=== PATIENT | female | born 1945 | race Caucasian/White ===

== ENCOUNTER 2017-01-05 23:25 | Inpatient (IN) | payer MEDICARE ==
--- NOTE | 2017-01-06 00:15 | ED Physician Chart ---
Chief Complaint/HPI - Patient Information Date Seen:: 01/06/17 Time Seen:: 23:40 Chief Complaint:: CELLULITIS OF BOTH LEGS AND FEET History of Present Illness:: THIS IS A 71 YO FEMALE WITH A LONG HISTORY HEART FAILURE WITH SEVERE SWELLING' REDNESS AND TENDERNESS OF BOTH LOWER EXTREMITIES. SHE ALSO HAS A HISTORY OF HEART DISEASE AND HYPERTENSION. SHE ALSO HAD BRAIN SURGERY FOR REPAIR OF A RUPTURED BLOOD VESSELS IN THE BRAIN. Allergies:: Allergies Allergy/AdvReac Type Severity Reaction Status Date / Time No Known Allergies Allergy Verified 01/06/17 00:00 Vitals:: Vital Signs - 8 hr 01/05/17 23:30 Temp 98.1 F HR 105 RR 20 BP 127/85 O2 Sat % 95 Historian:: Patient Review:: Nurse's Note Reviewed Review of Systems - Review of Systems General/Constitutional: No fever, No chills, No weight loss, Weakness, No diaphoresis, Edema, No loss of appetite Skin: Skin lesions, No rash, No bruising Head: No headache, No light-headedness Eyes: No loss of vision, No pain, No diplopia ENT: No earache, No nasal drainage, No sore throat, No tinnitus Neck: No neck pain, No swelling, No thyromegaly, No stiffness, No mass noted Cardio Vascular: No chest pain, No palpitations, No PND, No orthopnea, No edema Pulmonary: SOB, Cough, No sputum, No wheezing GI: No nausea, No vomiting, No diarrhea, No pain, No melena, No hematochezia, No constipation, No hematemesis G/U: No dysuria, No frequency, No hematuria Musculoskeletal: No bone or joint pain, No back pain, No muscle pain Endocrine: No polyuria, No polydipsia Psychiatric: No prior psych history, No depression, Anxiety, No suicidal ideation Hematopoietic: No bruising, No lymphadenopathy Allergic/Immuno: No urticaria, No angioedema Neurological: No syncope, No focal symptoms, No weakness, No paresthesia, No headache, No seizure, No dizziness, No confusion, No vertigo Past Medical History - Past Medical History Obtainable: Yes Past Medical History: HTN, CHF Family History: None Social History: Non Smoker, No Alcohol, No Drug Use Surgical History: other (RIGHT FOOT SURGERY AND BRAIN SURGERY) Psychiatricy History: Depression Medication: Reviewed Family Medical History - Family Member Mother History Unknown: Yes Ethnicity: Non- Living Status: Other Medical History: POOR LEG CIRCULATION Physical Exam - Physical Examination General/Constitutional: Awake, Well-developed, well-nourished, Alert, No distress, GCS 15, Non-toxic appearing, Ambulatory Head: Atraumatic Eyes: Lids, conjuctiva normal, PERRL, EOMI Skin: Nl inspection, No rash, No skin lesions, No ecchymosis, Well hydrated, No lymphadenopathy ENMT: External ears, nose nl, Nasal exam nl, Lips, teeth, gums nl Neck: Nontender, Full ROM w/o pain, No JVD, No nuchal rigidity, No bruit, No mass, No stridor Respiratory: Nl effort/Exclusion Other Respiratory comments:: THERE ARE BILATERAL RHONCHI AND RALES Cardio Vascular: RRR, No murmur, gallop, rubs, NL S1 S2 Other Cardio Vascular comments:: ABDNORMAL BEATS HEARD WITH DROPPED BEATS HERAD. GI: No tenderness/rebounding/guarding, No organomegaly, No hernia, Normal BS's, Nondistended, No mass/bruits, No McBurney tenderness : No CVA tenderness Extremities: Full ROM, normal strength in all extremities, Normal digits & nails Other Extremities comments:: THERE IS BILATERAL SEVERE EDEMA 4+ AND REDNESS WITH TENDERNESS FROM THE TIBIAL TUBEROSITY DOWN TO BOTH FEET. Neuro/Psych: Alert/oriented, DTR's symmetric, Normal sensory exam, Normal motor strength, Judgement/insight normal, Mood normal, No focal deficits Other Neuro/Psych comments:: THIS PATIENT HAS AN ABNORMAL GAIT Misc: normal gait, Normal back, No paraspinal tenderness Labs/Radiology/EKG Results - Lab Results Results: Abnormal Lab Results 01/06/17 01/06/17 01/06/17 00:22 00:22 00:33 WBC 15.2 H RBC 4.61 Hgb 12.9 Hct 39.0 MCV 84.6 MCH 28.1 MCHC Differential 33.2 RDW 13.8 Plt Count 473 H MPV 8.1 Neutrophils % 72.4 Lymphocytes % 19.1 L Monocytes % 5.2 Eosinophils % 2.9 Basophils % 0.4 Sodium 134 L Potassium 4.4 Chloride 103 Carbon Dioxide 23.9 Anion Gap 11.5 BUN 26 H Creatinine 1.2 Est GFR ( Amer) 57.1 Est GFR (Non-Af Amer) 47.2 BUN/Creatinine Ratio 21.7 Glucose 121 H Whole Bld Lactic Acid Calcium 10.0 Total Bilirubin 0.3 AST 15 ALT 13 Alkaline Phosphatase 90 Troponin I Total Protein 8.4 H Albumin 3.4 L Globulin 5.0 Albumin/Globulin Ratio 0.7 L Triglycerides 155 H Cholesterol 148 LDL Cholesterol Direct 116 HDL Cholesterol 27 01/06/17 01/06/17 00:33 00:33 WBC RBC Hgb Hct MCV MCH MCHC Differential RDW Plt Count MPV Neutrophils % Lymphocytes % Monocytes % Eosinophils % Basophils % Sodium Potassium Chloride Carbon Dioxide Anion Gap BUN Creatinine Est GFR ( Amer) Est GFR (Non-Af Amer) BUN/Creatinine Ratio Glucose Whole Bld Lactic Acid 1.48 Calcium Total Bilirubin AST ALT Alkaline Phosphatase Troponin I 0.01 Total Protein Albumin Globulin Albumin/Globulin Ratio Triglycerides Cholesterol LDL Cholesterol Direct HDL Cholesterol - Radiology Results Results: CHEST X-RAY = CARDIOMEGALY ct scan of the chest = large hiatal hernia, hilar lymphnodes, - EKG Interpretations EKG Time:: 00:03 Rate & Rhythm: RATE= 101, SINUS Taiban: RIGHT AXIS Comments:: THERE ARE MULTI FOCAL PVCS NOTED Assessment - Assessment General Assessment: CHF WITH CELLULITIS OF BOTH LEGS hiatal hernia ED Septic Shock - . Is Septic Shock (SBP<90, OR Lactate>4 mmol\L) present?: No - <6hrs of presentation: Vital Signs: Vital Signs - 8 hr 01/05/17 23:30 Temp 98.1 F HR 105 RR 20 BP 127/85 O2 Sat % 95 Reassessment (Disposition) - Reassessment Reassessment Condition:: Improved - Diagnosis Diagnosis:: SEVERE CELLULITIS OF BOTH LOWER EXTREMITIES - Patient Disposition Discharge/Transfer:: Acute Care w/in this hosp Admitting Medical Physician:: Rex Mcguire Condition at Disposition:: Unchanged ED Discharge Plan - Patient Disposition Admit/Discharge/Transfer: Acute Care w/in this hosp Condition at Disposition: Unchanged
[2017-01-06 00:54] LABS: % BASOPHILS 0.4 % (0.0-2.0); % EOSINOPHILS 2.9 % (0.0-5.0); % LYMPHOCYTES 19.1 % (20.0-50.0); % MONOCYTES 5.2 % (2.0-10.0); % NEUTROPHILS 72.4 % (40.0-80.0); HEMOGLOBIN 12.9 gm/dL (11.7-16.1); MEAN CELL VOLUME 84.6 fl (81-100); MEAN CORPUSCULAR HEMOGLOBIN 28.1 pg (27.0-31.0); MEAN CORPUSCULAR HGB CONC 33.2 pg (28.0-36.0); MEAN PLATELET VOLUME 8.1 fl; PLATELET COUNT 473 Th/cmm (150-400); RED BLOOD COUNT 4.61 Mil/cmm (3.80-5.20); RED CELL DISTRIBUTION WIDTH 13.8 % (11.5-20.0)
[2017-01-06 00:59] LABS: WHITE BLOOD COUNT 15.2 Th/cmm (4.8-10.8)
[2017-01-06 01:10] LABS: ALB/GLOB RATIO 0.7 (1.0-1.8); ANION GAP 11.5 (7.0-16.0); BILIRUBIN,TOTAL 0.3 mg/dL (0.3-1.0); BUN/CREATININE RATIO 21.7; CARBON DIOXIDE 23.9 mEq/L (21.0-31.0); CREATININE - SERUM 1.2 mg/dL (0.6-1.2); POTASSIUM SERUM 4.4 mEq/L (3.5-5.1)
[2017-01-06 01:11] LABS: CHOLESTEROL 148 mg/dL (<200); TRIGLYCERIDES 155 mg/dL (<150)
[2017-01-06] MEDS ORDERED: cefTRIAXone 1 GM in Sodium Chloride 0.9% 50 ML IV ONE (01:11)
[2017-01-06 01:26] LABS: INR 0.94 (0.5-1.4); PROTHROMBIN TIME (TEST) 9.8 SECONDS (9.5-11.5)
[2017-01-06 01:35] LABS: URINE BILIRUBIN SMALL (NEGATIVE); URINE BLOOD NEGATIVE (NEGATIVE); URINE GLUCOSE (UA) NEGATIVE (NEGATIVE); URINE KETONE NEGATIVE (NEGATIVE); URINE PH 5.5 (4.6 - 8.0); URINE PROTEIN 30 mg/dL (NEGATIVE)
[2017-01-06 01:38] LABS: URINE COLOR ORANGE
[2017-01-06 01:41] LABS: URINE BACTERIA FEW /hpf (NONE SEEN); URINE EPITHELIAL CELLS OCCASIONAL /lpf (FEW); URINE RBC 0-2 /hpf (0-5); URINE WBC 0-2 /hpf (0-5)
[2017-01-06] MEDS ORDERED: IOHEXOL 300MG/ML 100 ML VIAL ONE (02:03)
[2017-01-06] MEDS ORDERED: Morphine Sulfate 2 mg/mL 1mL Syr IVP PRN ×3 (02:07→03:11)
[2017-01-06 07:28] LABS: % BASOPHILS 0.1 % (0.0-2.0); % EOSINOPHILS 4.2 % (0.0-5.0); % LYMPHOCYTES 18.6 % (20.0-50.0); % MONOCYTES 6.5 % (2.0-10.0); % NEUTROPHILS 70.6 % (40.0-80.0); HEMATOCRIT 37.2 % (35.0-45.0); HEMOGLOBIN 12.2 gm/dL (11.7-16.1); MEAN CELL VOLUME 87.3 fl (81-100); MEAN CORPUSCULAR HEMOGLOBIN 28.6 pg (27.0-31.0); MEAN CORPUSCULAR HGB CONC 32.7 pg (28.0-36.0); MEAN PLATELET VOLUME 8.8 fl; NEUTROPHILE ABSOLUTE 9.8 Th/cmm (1.8-8.0); PLATELET COUNT 454 Th/cmm (150-400); RED BLOOD COUNT 4.25 Mil/cmm (3.80-5.20); RED CELL DISTRIBUTION WIDTH 13.7 % (11.5-20.0)
[2017-01-06 07:30] LABS: ALB/GLOB RATIO 0.7 (1.0-1.8); ALKALINE PHOSPHATASE 94 U/L (34-104); BILIRUBIN,TOTAL 0.3 mg/dL (0.3-1.0); BUN - UREA NITROGEN 24 mg/dL (7-25); CALCIUM SERUM 9.1 mg/dL (8.6-10.3); CARBON DIOXIDE 26.7 mEq/L (21.0-31.0); CHLORIDE 103 mEq/L (98-107); CHOLESTEROL 134 mg/dL (<200); GLUCOSE 103 mg/dL (70-105); POTASSIUM SERUM 3.7 mEq/L (3.5-5.1); SGOT 12 U/L (13-39); SGPT/ALT 12 U/L (7-52); SODIUM SERUM 137 mEq/L (136-145); TRIGLYCERIDES 127 mg/dL (<150)
[2017-01-06 08:08] LABS: WHITE BLOOD COUNT 13.9 Th/cmm (4.8-10.8)
--- NOTE | 2017-01-06 08:55 | Diagnostic Imaging Report ---
Exam: Portable examination chest HISTORY: Congestive heart failure Findings: A portable upright examination of chest at 0043 hours was reviewed no prior studies available for comparison. The study demonstrates a large right pericardial mass measuring 13.5 cm long with diameters with superimposed right pleural effusion. This might represent pneumonic consolidation neoplastic component or infiltration of right hemidiaphragm eventration. CT examination of chest is recommended. COMPARISON with studies of the lateral view of chest would be helpful. The left lung parenchyma is well aerated. Mediastinal structures midline the heart is not enlarged. Bony thorax intact. IMPRESSION: 1. 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 CT examination of chest recommended.
[2017-01-06] MEDS ORDERED: Vancomycin HCl 1.5 GM in Sodium Chloride 0.9% 500 ML IV SCH (10:00)
--- NOTE | 2017-01-06 12:14 | History and Physical ---
History of Present Illness - HPI Chief Complaint: bilateral leg cellulitis HPI: THIS IS A 71 YEAR OLD FEMALE WITH A 1 WEEK HISTORY OF BILATERAL LOWER EXTREMITY SWELLING AND REDNESS. Vital Signs: Last Vital Signs Temp 98.5 F 01/06/17 08:00 Pulse 91 01/06/17 08:00 Resp 19 01/06/17 08:00 BP 116/68 01/06/17 02:49 Pulse Ox 91 01/06/17 08:00 Past Medical History Cardiovascular: Report: CAD, CHF, HTN Pulmonary: Report: No Pertinent Hx TEACHING SUPERVISOR: Report: No Pertinent Hx GI: Report: No Pertinent Hx Psych: Report: No Pertinent Hx Musculoskeletal: Report: No Pertinent Hx Infectious Disease: Report: No Pertinent Hx Renal/: Report: No Pertinent Hx Endocrine: Report: No Pertinent Hx Dermatology: Report: No Pertinent Hx - Past Surgical History Past Surgical History: Other (BRAIN SURGERY) Family Medical History - Family Member Mother History Unknown: Yes Ethnicity: Non- Living Status: Other Medical History: POOR LEG CIRCULATION Social History Smoke: No Alcohol: None Drugs: None Lives: With Family - Allergies Allergies/Adverse Reactions: Allergies Allergy/AdvReac Type Severity Reaction Status Date / Time No Known Allergies Allergy Verified 01/06/17 00:00 Review of Systems - Review of Systems Constitutional: Denies: Fever, Chills Eyes: Denies: Vision Change ENT: Denies: Ear Pain, Ear Discharge, Nose Pain Respiratory: Denies: Cough, Dry, Shortness of Breath Cardiovascular: Denies: Chest Pain, Palpitations, Orthopnea Gastrointestinal: Denies: Nausea, Vomiting Musculoskeletal: Denies: Neck Pain Skin: Denies: Rash Neurological: Denies: Weakness, Numbness, Confusion Physical Exam - Physical Exam HEENT: Report: Ears Nose Throat within normal limits Neck: Report: Within normal limits Cardiovascular Systems: Report: +s1/s2 noted Respiratory: Report: Breath Sounds are within normal limits Abdomen: Report: Non-tender to palpation Back: Report: Inspection of back is within normal limits. Extremities: Report: Non-tender to palpation. Skin: Report: Color of skin is within normal limits Neuro/Psych: Report: Mood affect is within normal limits - Lab Results All Lab Results last 24 hours: Laboratory Last Values WBC 13.9 Th/cmm (4.8-10.8) H 01/06/17 06:15 RBC 4.25 Mil/cmm (3.80-5.20) 01/06/17 06:15 Hgb 12.2 gm/dL (11.7-16.1) 01/06/17 06:15 Hct 37.2 % (35.0-45.0) 01/06/17 06:15 MCV 87.3 fl (81-100) 01/06/17 06:15 MCH 28.6 pg (27.0-31.0) 01/06/17 06:15 MCHC Differential 32.7 pg (28.0-36.0) 01/06/17 06:15 RDW 13.7 % (11.5-20.0) 01/06/17 06:15 Plt Count 454 Th/cmm (150-400) H 01/06/17 06:15 MPV 8.8 fl 01/06/17 06:15 Neutrophils % 70.6 % (40.0-80.0) 01/06/17 06:15 Lymphocytes % 18.6 % (20.0-50.0) L 01/06/17 06:15 Monocytes % 6.5 % (2.0-10.0) 01/06/17 06:15 Eosinophils % 4.2 % (0.0-5.0) 01/06/17 06:15 Basophils % 0.1 % (0.0-2.0) 01/06/17 06:15 PT 9.8 SECONDS (9.5-11.5) 01/06/17 00:33 INR 0.94 (0.5-1.4) 01/06/17 00:33 PTT (Actin FS) 23.2 SECONDS (26.0-38.0) L 01/06/17 00:33 Sodium 137 mEq/L (136-145) 01/06/17 06:15 Potassium 3.7 mEq/L (3.5-5.1) 01/06/17 06:15 Chloride 103 mEq/L (98-107) 01/06/17 06:15 Carbon Dioxide 26.7 mEq/L (21.0-31.0) 01/06/17 06:15 Anion Gap 11.0 (7.0-16.0) 01/06/17 06:15 BUN 24 mg/dL (7-25) 01/06/17 06:15 Creatinine 1.0 mg/dL (0.6-1.2) 01/06/17 06:15 Est GFR ( Amer) > 60.0 ml/min (>90) 01/06/17 06:15 Est GFR (Non-Af Amer) 58.3 ml/min 01/06/17 06:15 BUN/Creatinine Ratio 24.0 01/06/17 06:15 Glucose 103 mg/dL (70-105) 01/06/17 06:15 Whole Bld Lactic Acid 1.48 mmol/L (0.60-1.99) 01/06/17 00:33 Calcium 9.1 mg/dL (8.6-10.3) 01/06/17 06:15 Total Bilirubin 0.3 mg/dL (0.3-1.0) 01/06/17 06:15 AST 12 U/L (13-39) L 01/06/17 06:15 ALT 12 U/L (7-52) 01/06/17 06:15 Alkaline Phosphatase 94 U/L (34-104) 01/06/17 06:15 Troponin I 0.01 ng/mL (0.01-0.05) 01/06/17 00:33 Total Protein 7.5 gm/dL (6.0-8.3) 01/06/17 06:15 Albumin 3.1 gm/dL (3.7-5.3) L 01/06/17 06:15 Globulin 4.4 gm/dL 01/06/17 06:15 Albumin/Globulin Ratio 0.7 (1.0-1.8) L 01/06/17 06:15 Triglycerides 127 mg/dL (<150) 01/06/17 06:15 Cholesterol 134 mg/dL (<200) 01/06/17 06:15 LDL Cholesterol Direct 102 mg/dL (75-193) 01/06/17 06:15 HDL Cholesterol 24 mg/dL (23-92) 01/06/17 06:15 TSH 2.90 uIU/ml (0.34-5.60) 01/06/17 00:33 Urine Source CLEAN C 01/06/17 01:28 Urine Color ORANGE 01/06/17 01:28 Urine Clarity SLIGHT CLOUDY (CLEAR) 01/06/17 01:28 Urine pH 5.5 (4.6 - 8.0) 01/06/17 01:28 Ur Specific [place] >= 1.030 (1.005-1.030) 01/06/17 01:28 Urine Protein 30 mg/dL (NEGATIVE) H 01/06/17 01:28 Urine Glucose (UA) NEGATIVE mg/dL (NEGATIVE) 01/06/17 01:28 Urine Ketones NEGATIVE mg/dL (NEGATIVE) 01/06/17 01:28 Urine Blood NEGATIVE (NEGATIVE) 01/06/17 01:28 Urine Nitrate NEGATIVE (NEGATIVE) 01/06/17 01:28 Urine Bilirubin SMALL (NEGATIVE) H 01/06/17 01:28 Urine Ictotest NEGATIVE (NEGATIVE) 01/06/17 01:28 Urine Urobilinogen 1.0 E.U./dL (0.2 - 1.0) 01/06/17 01:28 Ur Leukocyte Esterase NEGATIVE (NEGATIVE) 01/06/17 01:28 Urine RBC 0-2 /hpf (0-5) 01/06/17 01:28 Urine WBC 0-2 /hpf (0-5) 01/06/17 01:28 Ur Epithelial Cells OCCASIONAL /lpf (FEW) 01/06/17 01:28 Urine Bacteria FEW /hpf (NONE SEEN) 01/06/17 01:28 Hyaline Casts 2-5 /lpf (0-2) H 01/06/17 01:28 Laboratory Results - last 24 hr 01/06/17 01/06/17 06:15 06:15 WBC 13.9 H RBC 4.25 Hgb 12.2 Hct 37.2 MCV 87.3 MCH 28.6 MCHC Differential 32.7 RDW 13.7 Plt Count 454 H MPV 8.8 Neutrophils % 70.6 Lymphocytes % 18.6 L Monocytes % 6.5 Eosinophils % 4.2 Basophils % 0.1 Sodium 137 Potassium 3.7 Chloride 103 Carbon Dioxide 26.7 Anion Gap 11.0 BUN 24 Creatinine 1.0 Est GFR ( Amer) > 60.0 Est GFR (Non-Af Amer) 58.3 BUN/Creatinine Ratio 24.0 Glucose 103 Calcium 9.1 Total Bilirubin 0.3 AST 12 L ALT 12 Alkaline Phosphatase 94 Total Protein 7.5 Albumin 3.1 L Globulin 4.4 Albumin/Globulin Ratio 0.7 L Triglycerides 127 Cholesterol 134 LDL Cholesterol Direct 102 HDL Cholesterol 24 - Assessment Assessment: Cellulitis Bilateral Lower Extremities LEUCKOCYTOSIS ANEMIA ACUTE UTI HTN CHF MALNUTRITION - Plan Plan: EMPIRIC IV ANTIBIOTICS AM LABS VENOUS DOPPLER
--- NOTE | 2017-01-06 12:18 | Diagnostic Imaging Report ---
Exam: Portable summation of chest supine HISTORY: PICC line placement Findings: Portable supine examination of chest 1156 was reviewed no prior studies available comparison. The study demonstrates right-sided PICC line terminating superior vena cava. There is evidence of cardiomegaly superimposed congestive heart failure There is evidence of extensive consolidation in the right lung with superimposed right pleural effusion follow-up dictation recommended. The visualized bony thorax is intact. IMPRESSION: 1. Right-sided PICC line with the tip in superior vena cava 2. Cardiomegaly congestive heart failure 3. Extensive right basilar infiltrate superimposed effusion follow-up examination recommended
[2017-01-06] MEDS ORDERED: VTE Chemical Prophylaxis Screen/Admission MC PRN (12:26)
--- NOTE | 2017-01-06 15:46 | Diagnostic Imaging Report ---
Exam: CT exam of the chest HISTORY: Chest congestion Total DLP equals 287 CTDI equals 7.3 Findings: Multiple contiguous thin section of the chest were obtained from thoracic outlet to the upper abdomen with administration of intravenous contrast material. Reconstructions were made. Comparison: Chest x-ray 01/06/2017 Findings: A few nonspecific borderline prominent mediastinal lymph nodes are noted. Heart size is normal. No pericardial effusion. Moderate atherosclerotic vascular noted. Calcified and soft plaque is seen. There is mild ectasia of the proximal abdominal aorta measuring up to 2.2 cm. There is a massive retrocardiac hiatal hernia primarily along the right retrocardiac region containing almost all of the stomach with malrotated stomach noted. Hypoventilatory atelectatic changes of the lung bases are seen with mild bibasilar airspace disease and right basal passive atelectatic changes. No Pleural effusions. The upper abdomen demonstrates a 4 mm left renal stone, partially visualized. There is fullness of the bilateral renal collecting systems. A 3 cm left adrenal mass is also noted. There is hyperplasia of the bilateral adrenal glands. Degenerative changes of the spine are noted. IMPRESSION: Massive retrocardiac hiatal hernia primarily on the right side containing almost all the stomach with malrotation of the stomach noted. This accounts for density seen on recent chest x-ray. Mild bibasilar airspace disease and right basal passive atelectasis/consolidative changes. 3 cm left adrenal mass. Hounsfield units are indeterminate. Short-term follow-up CT without IV contrast is recommended for further assessment. Bilateral adrenal hyperplasia is also noted. 3 mm left renal stone. There is also fullness of the bilateral renal collecting systems, partially visualized. Moderate atherosclerotic vascular disease with calcified and soft plaque formation and mild ectasia of the proximal abdominal aorta measures 2.2 cm.
--- NOTE | 2017-01-06 23:39 | Admit Criteria Form ---
Admit Criteria Forms - Admit Criteria Diagnosis: CELLULITIS Clinical Indications for Admission to Inpatient Care (Place 'X' for any and all applicable criteria): Admission is indicated for ANY ONE of the following(1)(2)(3)(4)(5): [ ]I. Limb-threatening infection [ ]II. High-risk comorbid condition as indicated by ANY ONE of the following: [ ]a) Uncontrolled diabetes (eg, HbA1c greater than 10% (0.1)) [ ]b) Cirrhosis [ ]c) Neutropenia [ ]d) Asplenia [ ]e) Immunosuppression [ ]f) Symptomatic heart failure [ ]III. Failure of outpatient therapy as indicated by ALL of the following: [ ]a) Progression or no improvement after adequate trial (minimum of 48 hours, with longer period for stable lower extremity infection) [ ]b) Adequate antibiotic regimen as indicated by use of ANY ONE of the following: [ ]i) First-generation cephalosporin (e.g., cephalexin) [ ]ii) Antistaphylococcal penicillin (e.g., dicloxacillin) [ ]iii) Penicillin-allergic patient regimen (clindamycin, extended-spectrum fluoroquinolone, or doxycycline) [ ]iv) Resistant organism (eg, methicillin-resistant Staphylococcus aureus) regimen (6) [ ]c) Outpatient intravenous therapy regimen is not appropriate due to ANY ONE of the following. (7)(8)(9)(10): [ ]i) It was tried and was not successful (eg, progression of infection). [ ]ii) It is not available or cannot be arranged in a clinically appropriate time frame (e.g., the next day). [ ]iii) Clinical presentation (eg, acuity of infection, rapidity of progression, confirmed or suspected bacteremia) is judged to require ALL of the following: [ ]1) Immediate initiation of intravenous therapy ( eg, cannot wait for next day) [ ]2) Intensity of patient monitoring and observation (eg, vital sign measurement, checks for infection progression) that cannot be provided at other than inpatient level of care [ ]IV. Mental status changes [ ]V. Bacteremia [ ]. Hemodynamic instability [ ]VII. Suspected necrotizing soft tissue infection (e.g., gas in tissue)(11)( 12) [ ]VIII. Orbital infection (13)(14) [ ]IX. Associated surgical procedure (e.g., abscess drainage, debridement) not amenable to outpatient, emergency department, or observation care [ ]X. Cutaneous gangrene [ ]XI. High fever (temperature greater than 39.5 degrees C (103.1 degrees F) (oral)) not responsive to outpatient, emergency department, or observation care therapy [X ]XIII. Inpatient admission required rather than observation care (Also use Cellulitis: Observation Care as appropriate) because of ANY ONE of the following : [ ]a) Periorbital or perineal infection that is severe or worsening [ ]b) Severe pain requiring acute inpatient management [ ]c) IV fluid to replace significant ongoing (e.g., for over 24 hours) losses (greater than 3L/m2 per day) [ ]d) Compartment syndrome monitoring (17) [ ]e) Strict or protective (eg, laminar flow) isolation [ ]f) Urgent debridement or skin grafting [ ]g) Bone or joint debridement [ ]h) Immediate inpatient surgery [X ]i) Other condition, treatment or monitoring requiring inpatient admission Extended stay beyond goal length of stay may be needed for (1)(18): [ ]a) Necrotizing soft tissue infection or fasciitis [ ]b) Gram-negative infection [ ]c) Methicillin-resistant Staphylococcal aureus (MRSA) infection [ ]d) Peripheral venous insufficiency with cellulitis [ ]e) Extensive edema [ ]f) Sepsis or continued Hemodynamic instability [ ]g) Continued high fever or mental status change [ ]h) Bacteremia [ ]i) Active serious comorbid conditions ( eg, heart failure, renal insufficiency) The original [facility] [employer] content created by [facility] [facility] [place] [employer] has been revised. The portions of the content which have been revised are identified through the use of italic text or in bold, and [facility] has neither reviewed nor approved the modified material. All other unmodified content is copyright [facility] Please see references footnoted in the original [facility] edition 2016 Admit Criteria Met?: Yes
[2017-01-07 06:32] LABS: % BASOPHILS 0.1 % (0.0-2.0); % EOSINOPHILS 5.6 % (0.0-5.0); % LYMPHOCYTES 17.6 % (20.0-50.0); % MONOCYTES 3.2 % (2.0-10.0); % NEUTROPHILS 73.5 % (40.0-80.0); HEMATOCRIT 37.7 % (35.0-45.0); HEMOGLOBIN 12.2 gm/dL (11.7-16.1); MEAN CELL VOLUME 86.4 fl (81-100); MEAN CORPUSCULAR HEMOGLOBIN 27.9 pg (27.0-31.0); MEAN CORPUSCULAR HGB CONC 32.3 pg (28.0-36.0); MEAN PLATELET VOLUME 8.3 fl; NEUTROPHILE ABSOLUTE 10.4 Th/cmm (1.8-8.0); PLATELET COUNT 457 Th/cmm (150-400); RED BLOOD COUNT 4.36 Mil/cmm (3.80-5.20); RED CELL DISTRIBUTION WIDTH 13.6 % (11.5-20.0)
[2017-01-07 06:39] LABS: WHITE BLOOD COUNT 14.2 Th/cmm (4.8-10.8)
[2017-01-07 07:14] LABS: ANION GAP 8.8 (7.0-16.0); BUN - UREA NITROGEN 24 mg/dL (7-25); BUN/CREATININE RATIO 21.8; CARBON DIOXIDE 27.2 mEq/L (21.0-31.0); CHLORIDE 105 mEq/L (98-107); CREATININE - SERUM 1.1 mg/dL (0.6-1.2); GLUCOSE 111 mg/dL (70-105); SODIUM SERUM 137 mEq/L (136-145)
--- NOTE | 2017-01-07 08:01 | Diagnostic Imaging Report ---
Bilateral lower extremity Doppler venous ultrasound exam HISTORY: Pain/swelling Sonographic sector images were obtained through the deep venous systems of both legs. Associated Doppler data was obtained. The exam demonstrates patency of the common femoral, superficial femoral, popliteal, and posterior tibial veins bilaterally. Specifically, no thrombus is seen. There are normal compressibility and augmentation responses. IMPRESSION: Negative exam for deep vein thrombophlebitis.
[2017-01-07] MEDS: Vancomycin HCl 1.5 GM in Sodium Chloride 0.9% 500 ML IV SCH (08:46)
--- NOTE | 2017-01-07 09:13 | General Progress Note ---
Subjective - Review of Systems Service Date: 01/07/17 Events since last encounter: chronic cellulitis lower extremities, duration? has huge hiatal hernia, seems to be asymptomatic suggest EGD in presence of malrotation of CT Objective - Results Result Diagrams: 01/07/17 06:10 01/07/17 06:10 Recent Labs: Laboratory Last Values WBC 14.2 Th/cmm (4.8-10.8) H 01/07/17 06:10 RBC 4.36 Mil/cmm (3.80-5.20) 01/07/17 06:10 Hgb 12.2 gm/dL (11.7-16.1) 01/07/17 06:10 Hct 37.7 % (35.0-45.0) 01/07/17 06:10 MCV 86.4 fl (81-100) 01/07/17 06:10 MCH 27.9 pg (27.0-31.0) 01/07/17 06:10 MCHC Differential 32.3 pg (28.0-36.0) 01/07/17 06:10 RDW 13.6 % (11.5-20.0) 01/07/17 06:10 Plt Count 457 Th/cmm (150-400) H 01/07/17 06:10 MPV 8.3 fl 01/07/17 06:10 Neutrophils % 73.5 % (40.0-80.0) 01/07/17 06:10 Lymphocytes % 17.6 % (20.0-50.0) L 01/07/17 06:10 Monocytes % 3.2 % (2.0-10.0) 01/07/17 06:10 Eosinophils % 5.6 % (0.0-5.0) H 01/07/17 06:10 Basophils % 0.1 % (0.0-2.0) 01/07/17 06:10 PT 9.8 SECONDS (9.5-11.5) 01/06/17 00:33 INR 0.94 (0.5-1.4) 01/06/17 00:33 PTT (Actin FS) 23.2 SECONDS (26.0-38.0) L 01/06/17 00:33 Sodium 137 mEq/L (136-145) 01/07/17 06:10 Potassium 4.0 mEq/L (3.5-5.1) 01/07/17 06:10 Chloride 105 mEq/L (98-107) 01/07/17 06:10 Carbon Dioxide 27.2 mEq/L (21.0-31.0) 01/07/17 06:10 Anion Gap 8.8 (7.0-16.0) 01/07/17 06:10 BUN 24 mg/dL (7-25) 01/07/17 06:10 Creatinine 1.1 mg/dL (0.6-1.2) 01/07/17 06:10 Est GFR ( Amer) > 60.0 ml/min (>90) 01/07/17 06:10 Est GFR (Non-Af Amer) 52.2 ml/min 01/07/17 06:10 BUN/Creatinine Ratio 21.8 01/07/17 06:10 Glucose 111 mg/dL (70-105) H 01/07/17 06:10 Whole Bld Lactic Acid 1.48 mmol/L (0.60-1.99) 01/06/17 00:33 Calcium 9.0 mg/dL (8.6-10.3) 01/07/17 06:10 Total Bilirubin 0.3 mg/dL (0.3-1.0) 01/06/17 06:15 AST 12 U/L (13-39) L 01/06/17 06:15 ALT 12 U/L (7-52) 01/06/17 06:15 Alkaline Phosphatase 94 U/L (34-104) 01/06/17 06:15 Troponin I 0.01 ng/mL (0.01-0.05) 01/06/17 00:33 Total Protein 7.5 gm/dL (6.0-8.3) 01/06/17 06:15 Albumin 3.1 gm/dL (3.7-5.3) L 01/06/17 06:15 Globulin 4.4 gm/dL 01/06/17 06:15 Albumin/Globulin Ratio 0.7 (1.0-1.8) L 01/06/17 06:15 Triglycerides 127 mg/dL (<150) 01/06/17 06:15 Cholesterol 134 mg/dL (<200) 01/06/17 06:15 LDL Cholesterol Direct 102 mg/dL (75-193) 01/06/17 06:15 HDL Cholesterol 24 mg/dL (23-92) 01/06/17 06:15 TSH 2.90 uIU/ml (0.34-5.60) 01/06/17 00:33 Urine Source CLEAN C 01/06/17 01:28 Urine Color ORANGE 01/06/17 01:28 Urine Clarity SLIGHT CLOUDY (CLEAR) 01/06/17 01:28 Urine pH 5.5 (4.6 - 8.0) 01/06/17 01:28 Ur Specific [place] >= 1.030 (1.005-1.030) 01/06/17 01:28 Urine Protein 30 mg/dL (NEGATIVE) H 01/06/17 01:28 Urine Glucose (UA) NEGATIVE mg/dL (NEGATIVE) 01/06/17 01:28 Urine Ketones NEGATIVE mg/dL (NEGATIVE) 01/06/17 01:28 Urine Blood NEGATIVE (NEGATIVE) 01/06/17 01:28 Urine Nitrate NEGATIVE (NEGATIVE) 01/06/17 01:28 Urine Bilirubin SMALL (NEGATIVE) H 01/06/17 01:28 Urine Ictotest NEGATIVE (NEGATIVE) 01/06/17 01:28 Urine Urobilinogen 1.0 E.U./dL (0.2 - 1.0) 01/06/17 01:28 Ur Leukocyte Esterase NEGATIVE (NEGATIVE) 01/06/17 01:28 Urine RBC 0-2 /hpf (0-5) 01/06/17 01:28 Urine WBC 0-2 /hpf (0-5) 01/06/17 01:28 Ur Epithelial Cells OCCASIONAL /lpf (FEW) 01/06/17 01:28 Urine Bacteria FEW /hpf (NONE SEEN) 01/06/17 01:28 Hyaline Casts 2-5 /lpf (0-2) H 01/06/17 01:28 Vancomycin Trough 13.0 ug/mL (10-20) 01/07/17 06:10 RPR NONREACTIVE (NONREACTIVE) 01/06/17 00:33 - Physical Exam Vitals and I&O: Vital Signs Temp 97.5 F 01/07/17 07:44 Pulse 88 01/07/17 07:44 Resp 18 01/07/17 07:44 BP 116/69 01/07/17 07:44 Pulse Ox 94 01/07/17 07:44 Intake & Output 01/06/17 01/07/17 01/07/17 18:59 06:59 18:59 Intake Total 740 50 150 Output Total 450 880 Balance 290 50 -730 Weight (lbs) 106.141 kg 108.409 kg 108.272 kg Intake: Intake, IV Amount 500 50 Piperacillin Sodium/ 50 Tazobact 3.375 gm In Sodium Chloride 0.9% 50 ml @ 100 mls/hr IV Q8HR [facility] Rx#:[id number] Vancomycin HCl 1.5 gm In 500 Sodium Chloride 0.9% 500 ml @ 250 mls/hr IV Q24H [facility] Rx#:[id number] Oral 240 150 Output: Urine 450 880 Active Medications: Current Medications Piperacillin Sod/Tazobactam (Sod 3.375 gm/ Sodium Chloride) 50 mls @ 100 mls/ hr IV Q8HR [facility] Stop: 03/07/17 04:59 Last Admin: 01/07/17 04:07 Dose: 100 mls/hr Vancomycin HCl 1.5 gm/ Sodium (Chloride) 500 mls @ 250 mls/hr IV Q24H [facility] Stop: 03/08/17 07:59 Last Admin: 01/07/17 08:46 Dose: 250 mls/hr Miscellaneous (Vancomycin Iv Per Pharmacy) 1 [facility] DAILY [facility] Stop: 03/07/17 08:59 Miscellaneous (Vte Chemical Prophylaxis Screen/ Admission) 1 [facility] PRN PRN PRN Reason: PROTOCOL Stop: 03/07/17 12:25 Morphine Sulfate (Morphine) 2 mg IVP Q3H PRN PRN Reason: Pain (Severe) Stop: 03/07/17 02:06 Morphine Sulfate (Morphine) 1 mg IVP Q3HR PRN PRN Reason: Pain (Moderate) Stop: 03/07/17 03:10 Ondansetron HCl (Zofran) 4 mg IV Q6H PRN PRN Reason: Nausea / Vomiting Stop: 03/07/17 03:10
--- NOTE | 2017-01-07 14:59 | General Progress Note ---
Subjective - Review of Systems Events since last encounter: bilateral lower ext swelling no fever Objective - Results Result Diagrams: 01/07/17 06:10 01/07/17 06:10 Recent Labs: Laboratory Last Values WBC 14.2 Th/cmm (4.8-10.8) H 01/07/17 06:10 RBC 4.36 Mil/cmm (3.80-5.20) 01/07/17 06:10 Hgb 12.2 gm/dL (11.7-16.1) 01/07/17 06:10 Hct 37.7 % (35.0-45.0) 01/07/17 06:10 MCV 86.4 fl (81-100) 01/07/17 06:10 MCH 27.9 pg (27.0-31.0) 01/07/17 06:10 MCHC Differential 32.3 pg (28.0-36.0) 01/07/17 06:10 RDW 13.6 % (11.5-20.0) 01/07/17 06:10 Plt Count 457 Th/cmm (150-400) H 01/07/17 06:10 MPV 8.3 fl 01/07/17 06:10 Neutrophils % 73.5 % (40.0-80.0) 01/07/17 06:10 Lymphocytes % 17.6 % (20.0-50.0) L 01/07/17 06:10 Monocytes % 3.2 % (2.0-10.0) 01/07/17 06:10 Eosinophils % 5.6 % (0.0-5.0) H 01/07/17 06:10 Basophils % 0.1 % (0.0-2.0) 01/07/17 06:10 PT 9.8 SECONDS (9.5-11.5) 01/06/17 00:33 INR 0.94 (0.5-1.4) 01/06/17 00:33 PTT (Actin FS) 23.2 SECONDS (26.0-38.0) L 01/06/17 00:33 Sodium 137 mEq/L (136-145) 01/07/17 06:10 Potassium 4.0 mEq/L (3.5-5.1) 01/07/17 06:10 Chloride 105 mEq/L (98-107) 01/07/17 06:10 Carbon Dioxide 27.2 mEq/L (21.0-31.0) 01/07/17 06:10 Anion Gap 8.8 (7.0-16.0) 01/07/17 06:10 BUN 24 mg/dL (7-25) 01/07/17 06:10 Creatinine 1.1 mg/dL (0.6-1.2) 01/07/17 06:10 Est GFR ( Amer) > 60.0 ml/min (>90) 01/07/17 06:10 Est GFR (Non-Af Amer) 52.2 ml/min 01/07/17 06:10 BUN/Creatinine Ratio 21.8 01/07/17 06:10 Glucose 111 mg/dL (70-105) H 01/07/17 06:10 Whole Bld Lactic Acid 1.48 mmol/L (0.60-1.99) 01/06/17 00:33 Calcium 9.0 mg/dL (8.6-10.3) 01/07/17 06:10 Total Bilirubin 0.3 mg/dL (0.3-1.0) 01/06/17 06:15 AST 12 U/L (13-39) L 01/06/17 06:15 ALT 12 U/L (7-52) 01/06/17 06:15 Alkaline Phosphatase 94 U/L (34-104) 01/06/17 06:15 Troponin I 0.01 ng/mL (0.01-0.05) 01/06/17 00:33 Total Protein 7.5 gm/dL (6.0-8.3) 01/06/17 06:15 Albumin 3.1 gm/dL (3.7-5.3) L 01/06/17 06:15 Globulin 4.4 gm/dL 01/06/17 06:15 Albumin/Globulin Ratio 0.7 (1.0-1.8) L 01/06/17 06:15 Triglycerides 127 mg/dL (<150) 01/06/17 06:15 Cholesterol 134 mg/dL (<200) 01/06/17 06:15 LDL Cholesterol Direct 102 mg/dL (75-193) 01/06/17 06:15 HDL Cholesterol 24 mg/dL (23-92) 01/06/17 06:15 TSH 2.90 uIU/ml (0.34-5.60) 01/06/17 00:33 Urine Source CLEAN C 01/06/17 01:28 Urine Color ORANGE 01/06/17 01:28 Urine Clarity SLIGHT CLOUDY (CLEAR) 01/06/17 01:28 Urine pH 5.5 (4.6 - 8.0) 01/06/17 01:28 Ur Specific [place] >= 1.030 (1.005-1.030) 01/06/17 01:28 Urine Protein 30 mg/dL (NEGATIVE) H 01/06/17 01:28 Urine Glucose (UA) NEGATIVE mg/dL (NEGATIVE) 01/06/17 01:28 Urine Ketones NEGATIVE mg/dL (NEGATIVE) 01/06/17 01:28 Urine Blood NEGATIVE (NEGATIVE) 01/06/17 01:28 Urine Nitrate NEGATIVE (NEGATIVE) 01/06/17 01:28 Urine Bilirubin SMALL (NEGATIVE) H 01/06/17 01:28 Urine Ictotest NEGATIVE (NEGATIVE) 01/06/17 01:28 Urine Urobilinogen 1.0 E.U./dL (0.2 - 1.0) 01/06/17 01:28 Ur Leukocyte Esterase NEGATIVE (NEGATIVE) 01/06/17 01:28 Urine RBC 0-2 /hpf (0-5) 01/06/17 01:28 Urine WBC 0-2 /hpf (0-5) 01/06/17 01:28 Ur Epithelial Cells OCCASIONAL /lpf (FEW) 01/06/17 01:28 Urine Bacteria FEW /hpf (NONE SEEN) 01/06/17 01:28 Hyaline Casts 2-5 /lpf (0-2) H 01/06/17 01:28 Vancomycin Trough 13.0 ug/mL (10-20) 01/07/17 06:10 RPR NONREACTIVE (NONREACTIVE) 01/06/17 00:33 - Physical Exam Vitals and I&O: Vital Signs Temp 97.0 F 01/07/17 11:46 Pulse 83 01/07/17 11:46 Resp 18 01/07/17 11:46 BP 116/59 01/07/17 11:46 Pulse Ox 97 01/07/17 11:46 Intake & Output 01/06/17 01/07/17 01/07/17 18:59 06:59 18:59 Intake Total 740 100 150 Output Total 450 880 Balance 290 100 -730 Weight (lbs) 106.141 kg 108.409 kg 108.272 kg Intake: Intake, IV Amount 500 100 Piperacillin Sodium/ 100 Tazobact 3.375 gm In Sodium Chloride 0.9% 50 ml @ 100 mls/hr IV Q8HR [facility] Rx#:[id number] Vancomycin HCl 1.5 gm In 500 Sodium Chloride 0.9% 500 ml @ 250 mls/hr IV Q24H [facility] Rx#:[id number] Oral 240 150 Output: Urine 450 880 Active Medications: Current Medications Piperacillin Sod/Tazobactam (Sod 3.375 gm/ Sodium Chloride) 50 mls @ 100 mls/ hr IV Q8HR [facility] Stop: 03/07/17 04:59 Last Admin: 01/07/17 12:31 Dose: 100 mls/hr Vancomycin HCl 1.5 gm/ Sodium (Chloride) 500 mls @ 250 mls/hr IV Q24H [facility] Stop: 03/08/17 07:59 Last Admin: 01/07/17 08:46 Dose: 250 mls/hr Miscellaneous (Vancomycin Iv Per Pharmacy) 1 [facility] DAILY [facility] Stop: 03/07/17 08:59 Miscellaneous (Vte Chemical Prophylaxis Screen/ Admission) 1 [facility] PRN PRN PRN Reason: PROTOCOL Stop: 03/07/17 12:25 Morphine Sulfate (Morphine) 2 mg IVP Q3H PRN PRN Reason: Pain (Severe) Stop: 03/07/17 02:06 Morphine Sulfate (Morphine) 1 mg IVP Q3HR PRN PRN Reason: Pain (Moderate) Stop: 03/07/17 03:10 Ondansetron HCl (Zofran) 4 mg IV Q6H PRN PRN Reason: Nausea / Vomiting Stop: 03/07/17 03:10 General: No acute distress HEENT: Atraumatic Cardiovascular: Regular rate Abdomen: Bowel sounds Assessment/Plan - Assessment Assessment: Cellulitis Bilateral Lower Extremities LEUCKOCYTOSIS ANEMIA ACUTE UTI HTN CHF MALNUTRITION - Plan Plan: EMPIRIC IV ANTIBIOTICS AM LABS VENOUS DOPPLER
--- NOTE | 2017-01-07 16:44 | General Progress Note ---
Subjective - Review of Systems Service Date: 01/07/17 Events since last encounter: discussed with Dr. Castro will do esophagram Objective - Results Result Diagrams: 01/07/17 06:10 01/07/17 06:10 Recent Labs: Laboratory Last Values WBC 14.2 Th/cmm (4.8-10.8) H 01/07/17 06:10 RBC 4.36 Mil/cmm (3.80-5.20) 01/07/17 06:10 Hgb 12.2 gm/dL (11.7-16.1) 01/07/17 06:10 Hct 37.7 % (35.0-45.0) 01/07/17 06:10 MCV 86.4 fl (81-100) 01/07/17 06:10 MCH 27.9 pg (27.0-31.0) 01/07/17 06:10 MCHC Differential 32.3 pg (28.0-36.0) 01/07/17 06:10 RDW 13.6 % (11.5-20.0) 01/07/17 06:10 Plt Count 457 Th/cmm (150-400) H 01/07/17 06:10 MPV 8.3 fl 01/07/17 06:10 Neutrophils % 73.5 % (40.0-80.0) 01/07/17 06:10 Lymphocytes % 17.6 % (20.0-50.0) L 01/07/17 06:10 Monocytes % 3.2 % (2.0-10.0) 01/07/17 06:10 Eosinophils % 5.6 % (0.0-5.0) H 01/07/17 06:10 Basophils % 0.1 % (0.0-2.0) 01/07/17 06:10 PT 9.8 SECONDS (9.5-11.5) 01/06/17 00:33 INR 0.94 (0.5-1.4) 01/06/17 00:33 PTT (Actin FS) 23.2 SECONDS (26.0-38.0) L 01/06/17 00:33 Sodium 137 mEq/L (136-145) 01/07/17 06:10 Potassium 4.0 mEq/L (3.5-5.1) 01/07/17 06:10 Chloride 105 mEq/L (98-107) 01/07/17 06:10 Carbon Dioxide 27.2 mEq/L (21.0-31.0) 01/07/17 06:10 Anion Gap 8.8 (7.0-16.0) 01/07/17 06:10 BUN 24 mg/dL (7-25) 01/07/17 06:10 Creatinine 1.1 mg/dL (0.6-1.2) 01/07/17 06:10 Est GFR ( Amer) > 60.0 ml/min (>90) 01/07/17 06:10 Est GFR (Non-Af Amer) 52.2 ml/min 01/07/17 06:10 BUN/Creatinine Ratio 21.8 01/07/17 06:10 Glucose 111 mg/dL (70-105) H 01/07/17 06:10 Whole Bld Lactic Acid 1.48 mmol/L (0.60-1.99) 01/06/17 00:33 Calcium 9.0 mg/dL (8.6-10.3) 01/07/17 06:10 Total Bilirubin 0.3 mg/dL (0.3-1.0) 01/06/17 06:15 AST 12 U/L (13-39) L 01/06/17 06:15 ALT 12 U/L (7-52) 01/06/17 06:15 Alkaline Phosphatase 94 U/L (34-104) 01/06/17 06:15 Troponin I 0.01 ng/mL (0.01-0.05) 01/06/17 00:33 Total Protein 7.5 gm/dL (6.0-8.3) 01/06/17 06:15 Albumin 3.1 gm/dL (3.7-5.3) L 01/06/17 06:15 Globulin 4.4 gm/dL 01/06/17 06:15 Albumin/Globulin Ratio 0.7 (1.0-1.8) L 01/06/17 06:15 Triglycerides 127 mg/dL (<150) 01/06/17 06:15 Cholesterol 134 mg/dL (<200) 01/06/17 06:15 LDL Cholesterol Direct 102 mg/dL (75-193) 01/06/17 06:15 HDL Cholesterol 24 mg/dL (23-92) 01/06/17 06:15 TSH 2.90 uIU/ml (0.34-5.60) 01/06/17 00:33 Urine Source CLEAN C 01/06/17 01:28 Urine Color ORANGE 01/06/17 01:28 Urine Clarity SLIGHT CLOUDY (CLEAR) 01/06/17 01:28 Urine pH 5.5 (4.6 - 8.0) 01/06/17 01:28 Ur Specific [place] >= 1.030 (1.005-1.030) 01/06/17 01:28 Urine Protein 30 mg/dL (NEGATIVE) H 01/06/17 01:28 Urine Glucose (UA) NEGATIVE mg/dL (NEGATIVE) 01/06/17 01:28 Urine Ketones NEGATIVE mg/dL (NEGATIVE) 01/06/17 01:28 Urine Blood NEGATIVE (NEGATIVE) 01/06/17 01:28 Urine Nitrate NEGATIVE (NEGATIVE) 01/06/17 01:28 Urine Bilirubin SMALL (NEGATIVE) H 01/06/17 01:28 Urine Ictotest NEGATIVE (NEGATIVE) 01/06/17 01:28 Urine Urobilinogen 1.0 E.U./dL (0.2 - 1.0) 01/06/17 01:28 Ur Leukocyte Esterase NEGATIVE (NEGATIVE) 01/06/17 01:28 Urine RBC 0-2 /hpf (0-5) 01/06/17 01:28 Urine WBC 0-2 /hpf (0-5) 01/06/17 01:28 Ur Epithelial Cells OCCASIONAL /lpf (FEW) 01/06/17 01:28 Urine Bacteria FEW /hpf (NONE SEEN) 01/06/17 01:28 Hyaline Casts 2-5 /lpf (0-2) H 01/06/17 01:28 Vancomycin Trough 13.0 ug/mL (10-20) 01/07/17 06:10 RPR NONREACTIVE (NONREACTIVE) 01/06/17 00:33 - Physical Exam Vitals and I&O: Vital Signs Temp 97.2 F 01/07/17 15:41 Pulse 76 01/07/17 15:41 Resp 17 01/07/17 15:41 BP 110/73 01/07/17 15:41 Pulse Ox 95 01/07/17 15:41 Intake & Output 01/06/17 01/07/1717 18:59 06:59 18:59 Intake Total 740 100 150 Output Total 450 880 Balance 290 100 -730 Weight (lbs) 106.141 kg 108.409 kg 108.272 kg Intake: Intake, IV Amount 500 100 Piperacillin Sodium/ 100 Tazobact 3.375 gm In Sodium Chloride 0.9% 50 ml @ 100 mls/hr IV Q8HR [facility] Rx#:[id number] Vancomycin HCl 1.5 gm In 500 Sodium Chloride 0.9% 500 ml @ 250 mls/hr IV Q24H [facility] Rx#:[id number] Oral 240 150 Output: Urine 450 880 Active Medications: Current Medications Piperacillin Sod/Tazobactam (Sod 3.375 gm/ Sodium Chloride) 50 mls @ 100 mls/ hr IV Q8HR [facility] Stop: 03/07/17 04:59 Last Admin: 01/07/17 12:31 Dose: 100 mls/hr Vancomycin HCl 1.5 gm/ Sodium (Chloride) 500 mls @ 250 mls/hr IV Q24H [facility] Stop: 03/08/17 07:59 Last Admin: 01/07/17 08:46 Dose: 250 mls/hr Miscellaneous (Vancomycin Iv Per Pharmacy) 1 [facility] DAILY [facility] Stop: 03/07/17 08:59 Miscellaneous (Vte Chemical Prophylaxis Screen/ Admission) 1 [facility] PRN PRN PRN Reason: PROTOCOL Stop: 03/07/17 12:25 Morphine Sulfate (Morphine) 2 mg IVP Q3H PRN PRN Reason: Pain (Severe) Stop: 03/07/17 02:06 Morphine Sulfate (Morphine) 1 mg IVP Q3HR PRN PRN Reason: Pain (Moderate) Stop: 03/07/17 03:10 Mupirocin (Bactroban Oint) 1 appl NS BID [facility] Stop: 01/12/17 09:01 Ondansetron HCl (Zofran) 4 mg IV Q6H PRN PRN Reason: Nausea / Vomiting Stop: 03/07/17 03:10 General: No acute distress HEENT: Atraumatic Cardiovascular: Regular rate Abdomen: Bowel sounds
--- NOTE | 2017-01-07 19:05 | Consultation ---
DATE OF CONSULTATION: 01/07/2017 REFERRING PHYSICIAN: Dr. Mcguire. REASON FOR CONSULTATION: Cellulitis of both legs. Thank you for referring this patient to me. HISTORY OF PRESENT ILLNESS: This is a 71-year-old female, who appears to be coherent, who claims that she developed cellulitis in both lower extremities and has been getting worse for the last 12 years. She at one time wore some stockings but could not wear them now. PAST MEDICAL HISTORY: Includes hypertension, heart disease, brain surgery for ruptured aneurysm. She claims that about 40 years ago, she was told she had a hiatal hernia, but no surgery was recommended at that time. She denies any dysphagia, no pain in the chest, no throwing up. LABORATORY STUDIES: Show the WBC at 15,200, platelet count was 473. Chemistry are within normal limits. Chest x-ray showed opacity in the right chest and a CT scan was done and this showed a massive retrocardiac hiatal hernia with malrotation. Ultrasound of the lower extremity did not show any DVT. PHYSICAL EXAMINATION: GENERAL: The patient is morbidly obese. CHEST: Unremarkable, except for decreased breath sounds on the right side. ABDOMEN: Globular and soft. There is no epigastric tenderness. EXTREMITIES: The lower extremities show marked swelling involving both legs below the knee with ulcerations, although superficial. No evidence of distal arterial deficit. RECOMMENDATIONS: 1. Local wound care for the cellulitis. 2. In view of the grossly abnormal CT of the chest, will be ordered. This was discussed with GI learning and development consultant. JOB# [id number]
--- NOTE | 2017-01-08 00:14 | Consultation ---
DATE OF CONSULTATION: CONSULTING PHYSICIAN: Dr. Mcguire. REASON FOR CONSULTATION: Hiatal hernia. HISTORY OF PRESENT ILLNESS: The patient is a 71-year-old female with past medical history significant for congestive heart failure, recurrent leg cellulitis, hiatal hernia, who presented to the Emergency Room yesterday with recurrence of her bilateral lower extremity cellulitis. The patient notes that her legs have been feeling more painful and has been appearing more erythematous as of late and thus she decided to come into the Emergency Room for antibiotic therapy. A chest CT was performed in the Emergency Room and incidentally, there was noted to be a large hiatal hernia that was specifically noted to be massive retrocardiac in nature containing almost all of the stomach with malrotated stomach noted as well. At the current time, the patient has no complaints. She notes that she has been told she had a large hiatal hernia 40 years ago, although she has been largely asymptomatic since that time. She reports that she did have pain in her abdomen 40 years previously, especially exacerbated when eating spicy foods and was told by a surgeon that hernia repair, which would be particularly risky, so she decided to forego that. Since that time, the patient has been she can swallow without difficulty, has no problems with nausea, vomiting or acid reflux. She stays away largely from spicy foods. PAST MEDICAL HISTORY: Congestive heart failure, lower extremity edema, hiatal hernia. PAST SURGICAL HISTORY: Two foot surgeries in the past a brain aneurysm repair. FAMILY HISTORY: Noncontributory. SOCIAL HISTORY: She lives with her employer. She smokes 2 cigarettes per day and does not use any alcohol. ALLERGIES: No known drug allergies. REVIEW OF SYSTEMS: A 12-point review of systems was performed and is negative other than the pertinent positives mentioned in the history of present illness. MEDICATIONS: Vancomycin, morphine, Zofran, Bactroban ointment, Zosyn. PHYSICAL EXAMINATION: VITAL SIGNS: Blood pressure 110/73, pulse of 76, 97.2 Fahrenheit, oxygen saturation 95% on room air. GENERAL: The patient is lying flat, alert and oriented x 3, in no apparent distress. HEENT: No scleral icterus. Pupils are equal and reactive. Moist mucous membranes. NECK: No obvious JVD, no thyromegaly, no lymphadenopathy. CHEST AND LUNGS: Clear to auscultation bilaterally. CARDIOVASCULAR: S1, S2 are present, regular rate and rhythm. ABDOMEN: Soft, nontender. No rebound, no guarding. Positive bowel sounds. No fluid wave. No distention. EXTREMITIES: Both lower extremities show erythematous scaly skin consistent with cellulitis. NEUROLOGIC: Nonfocal. LABORATORY DATA: White count of 14.2 down from 15.2 on admission, hemoglobin 12.2, platelets 457, INR 0.9. Sodium 137, potassium 4, BUN 24, creatinine 1.1, AST 12, ALT 12, total bilirubin 0.3. Troponin is negative. Albumin 3.1, triglycerides 127. IMAGING STUDIES: Chest CT was performed on 01/06/2017 and shows massive retrocardiac hiatal hernia primarily on the right side containing almost all of the stomach with malrotation of the stomach noted, mild bibasilar airspace disease and right basal passive atelectasis, 3 cm left adrenal mass, 3 mm left renal stone. IMPRESSION: This is a 71-year-old female with past medical history significant for congestive heart failure and type 2 diabetes, who was currently admitted with recurrent lower extremity cellulitis. Imaging has incidentally found a very large hiatal hernia. 1. Hiatal hernia. 2. Recurrent lower extremity cellulitis. 3. History of congestive heart failure. 4. Type 2 diabetes. DISCUSSION: Certainly this patient's stomach hiatal hernia is very large and impressive on CT scan; however, she reports no acid reflux, vomiting, nausea or abdominal pain for the past 40 years, which are typical symptoms of a large hiatal hernia. Of course, the primary concern is strangulation of the hernia, which could cause obstruction and ischemia, although this has not happened in the past 40 years. I would imagine she is at low risk for it occurring now. Treatment modalities for this are surgical in nature and would require a difficult hiatal hernia repair. PLAN: 1. We will obtain a barium esophagram to better delineate the anatomy of this hernia, although I do not perceive that she will need any surgical intervention at this time given she has no symptoms. If she were to have acid reflux, the treatment would be daily PPI therapy, which is effective for most hiatal hernia reflux. 2. Continue with antibiotics as per primary to treat her lower extremity cellulitis. Thank you for allowing me to participate in the care of this patient. Please call with any further questions. JOB# [id number]
--- NOTE | 2017-01-08 07:01 | Consultation ---
DATE OF CONSULTATION: 01/06/2017 PRIMARY CARE PHYSICIAN: Dr. Mcguire. REASON FOR CONSULTATION: Leg cellulitis. HISTORY OF PRESENT ILLNESS: The patient is suffering from venous insufficiency, gastric ____, this time got worse over the last 2 days and the patient decided to come to the Emergency Room. The patient was evaluated and admitted. Antibiotics were started. PAST MEDICAL HISTORY: Hypertension, venous insufficiency, history of CHF. SOCIAL HISTORY: Nonsmoker. REVIEW OF SYSTEMS: A 14-point review of system negative except above. PHYSICAL EXAMINATION: GENERAL: The patient is responsive. VITAL SIGNS: Temperature is 97.4, maximum temperature 99, pulse 82, respirations 18, blood pressure 111/67. HEENT: Mild pallor, no icterus. Pupils react to light. NECK: Supple. LUNGS: Breath sounds bilateral vesicular S1, S2. ABDOMEN: Soft, bowel sounds present. NODES: No palpable cervical lymph nodes. EXTREMITIES: Both legs edematous with cellulitis. LABORATORY DATA: White count is 13,000, hemoglobin is 12 g, platelets 473. DIAGNOSES: Recurrent leg cellulitis, venous insufficiency, hypertension, history of congestive heart failure. PLAN: The patient was started on Zosyn and vancomycin, supportive care, and restart home medications. Thank you Dr. Mcguire for this consultation. JOB# [id number]
[2017-01-08] MEDS: Vancomycin HCl 1.5 GM in Sodium Chloride 0.9% 500 ML IV SCH (08:31)
--- NOTE | 2017-01-08 10:29 | General Progress Note ---
Subjective - Review of Systems Events since last encounter: patient c/o lower ext pain no distress wound care Objective - Results Result Diagrams: 01/07/17 06:10 01/07/17 06:10 Recent Labs: Laboratory Last Values WBC 14.2 Th/cmm (4.8-10.8) H 01/07/17 06:10 RBC 4.36 Mil/cmm (3.80-5.20) 01/07/17 06:10 Hgb 12.2 gm/dL (11.7-16.1) 01/07/17 06:10 Hct 37.7 % (35.0-45.0) 01/07/17 06:10 MCV 86.4 fl (81-100) 01/07/17 06:10 MCH 27.9 pg (27.0-31.0) 01/07/17 06:10 MCHC Differential 32.3 pg (28.0-36.0) 01/07/17 06:10 RDW 13.6 % (11.5-20.0) 01/07/17 06:10 Plt Count 457 Th/cmm (150-400) H 01/07/17 06:10 MPV 8.3 fl 01/07/17 06:10 Neutrophils % 73.5 % (40.0-80.0) 01/07/17 06:10 Lymphocytes % 17.6 % (20.0-50.0) L 01/07/17 06:10 Monocytes % 3.2 % (2.0-10.0) 01/07/17 06:10 Eosinophils % 5.6 % (0.0-5.0) H 01/07/17 06:10 Basophils % 0.1 % (0.0-2.0) 01/07/17 06:10 PT 9.8 SECONDS (9.5-11.5) 01/06/17 00:33 INR 0.94 (0.5-1.4) 01/06/17 00:33 PTT (Actin FS) 23.2 SECONDS (26.0-38.0) L 01/06/17 00:33 Sodium 137 mEq/L (136-145) 01/07/17 06:10 Potassium 4.0 mEq/L (3.5-5.1) 01/07/17 06:10 Chloride 105 mEq/L (98-107) 01/07/17 06:10 Carbon Dioxide 27.2 mEq/L (21.0-31.0) 01/07/17 06:10 Anion Gap 8.8 (7.0-16.0) 01/07/17 06:10 BUN 24 mg/dL (7-25) 01/07/17 06:10 Creatinine 1.1 mg/dL (0.6-1.2) 01/07/17 06:10 Est GFR ( Amer) > 60.0 ml/min (>90) 01/07/17 06:10 Est GFR (Non-Af Amer) 52.2 ml/min 01/07/17 06:10 BUN/Creatinine Ratio 21.8 01/07/17 06:10 Glucose 111 mg/dL (70-105) H 01/07/17 06:10 Whole Bld Lactic Acid 1.48 mmol/L (0.60-1.99) 01/06/17 00:33 Calcium 9.0 mg/dL (8.6-10.3) 01/07/17 06:10 Total Bilirubin 0.3 mg/dL (0.3-1.0) 01/06/17 06:15 AST 12 U/L (13-39) L 01/06/17 06:15 ALT 12 U/L (7-52) 01/06/17 06:15 Alkaline Phosphatase 94 U/L (34-104) 01/06/17 06:15 Troponin I 0.01 ng/mL (0.01-0.05) 01/06/17 00:33 Total Protein 7.5 gm/dL (6.0-8.3) 01/06/17 06:15 Albumin 3.1 gm/dL (3.7-5.3) L 01/06/17 06:15 Globulin 4.4 gm/dL 01/06/17 06:15 Albumin/Globulin Ratio 0.7 (1.0-1.8) L 01/06/17 06:15 Triglycerides 127 mg/dL (<150) 01/06/17 06:15 Cholesterol 134 mg/dL (<200) 01/06/17 06:15 LDL Cholesterol Direct 102 mg/dL (75-193) 01/06/17 06:15 HDL Cholesterol 24 mg/dL (23-92) 01/06/17 06:15 TSH 2.90 uIU/ml (0.34-5.60) 01/06/17 00:33 Urine Source CLEAN C 01/06/17 01:28 Urine Color ORANGE 01/06/17 01:28 Urine Clarity SLIGHT CLOUDY (CLEAR) 01/06/17 01:28 Urine pH 5.5 (4.6 - 8.0) 01/06/17 01:28 Ur Specific [place] >= 1.030 (1.005-1.030) 01/06/17 01:28 Urine Protein 30 mg/dL (NEGATIVE) H 01/06/17 01:28 Urine Glucose (UA) NEGATIVE mg/dL (NEGATIVE) 01/06/17 01:28 Urine Ketones NEGATIVE mg/dL (NEGATIVE) 01/06/17 01:28 Urine Blood NEGATIVE (NEGATIVE) 01/06/17 01:28 Urine Nitrate NEGATIVE (NEGATIVE) 01/06/17 01:28 Urine Bilirubin SMALL (NEGATIVE) H 01/06/17 01:28 Urine Ictotest NEGATIVE (NEGATIVE) 01/06/17 01:28 Urine Urobilinogen 1.0 E.U./dL (0.2 - 1.0) 01/06/17 01:28 Ur Leukocyte Esterase NEGATIVE (NEGATIVE) 01/06/17 01:28 Urine RBC 0-2 /hpf (0-5) 01/06/17 01:28 Urine WBC 0-2 /hpf (0-5) 01/06/17 01:28 Ur Epithelial Cells OCCASIONAL /lpf (FEW) 01/06/17 01:28 Urine Bacteria FEW /hpf (NONE SEEN) 01/06/17 01:28 Hyaline Casts 2-5 /lpf (0-2) H 01/06/17 01:28 Vancomycin Trough 13.0 ug/mL (10-20) 01/07/17 06:10 RPR NONREACTIVE (NONREACTIVE) 01/06/17 00:33 - Physical Exam Vitals and I&O: Vital Signs Temp 96.7 F 01/08/17 08:00 Pulse 85 01/08/17 08:00 Resp 18 01/08/17 08:00 BP 114/71 01/08/17 08:00 Pulse Ox 95 01/08/17 08:00 Intake & Output 01/07/17 01/08/17 01/08/17 18:59 06:59 18:59 Intake Total 1900 290 Output Total 2680 1800 Balance -780 -1510 Weight (lbs) 107.955 kg 107.592 kg Intake: Intake, IV Amount 550 50 Piperacillin Sodium/ 50 50 Tazobact 3.375 gm In Sodium Chloride 0.9% 50 ml @ 100 mls/hr IV Q8HR [facility] Rx#:[id number] Vancomycin HCl 1.5 gm In 500 Sodium Chloride 0.9% 500 ml @ 250 mls/hr IV Q24H [facility] Rx#:[id number] Oral 1350 240 Output: Urine 2680 1800 Other: # Bowel Movements 0 0 Active Medications: Current Medications Piperacillin Sod/Tazobactam (Sod 3.375 gm/ Sodium Chloride) 50 mls @ 100 mls/ hr IV Q8HR [facility] Stop: 03/07/17 04:59 Last Admin: 01/08/17 06:35 Dose: 100 mls/hr Vancomycin HCl 1.5 gm/ Sodium (Chloride) 500 mls @ 250 mls/hr IV Q24H [facility] Stop: 03/08/17 07:59 Last Admin: 01/08/17 08:31 Dose: 250 mls/hr Miscellaneous (Vancomycin Iv Per Pharmacy) 1 [facility] DAILY [facility] Stop: 03/07/17 08:59 Miscellaneous (Vte Chemical Prophylaxis Screen/ Admission) 1 [facility] PRN PRN PRN Reason: PROTOCOL Stop: 03/07/17 12:25 Morphine Sulfate (Morphine) 2 mg IVP Q3H PRN PRN Reason: Pain (Severe) Stop: 03/07/17 02:06 Morphine Sulfate (Morphine) 1 mg IVP Q3HR PRN PRN Reason: Pain (Moderate) Stop: 03/07/17 03:10 Mupirocin (Bactroban Oint) 1 appl NS BID [facility] Stop: 01/12/17 09:01 Last Admin: 01/08/17 08:51 Dose: 1 appl Ondansetron HCl (Zofran) 4 mg IV Q6H PRN PRN Reason: Nausea / Vomiting Stop: 03/07/17 03:10 General: No acute distress HEENT: Atraumatic Cardiovascular: Regular rate Abdomen: Bowel sounds Assessment/Plan - Assessment Assessment: Cellulitis Bilateral Lower Extremities LEUCKOCYTOSIS ANEMIA ACUTE UTI HTN CHF MALNUTRITION - Plan Plan: EMPIRIC IV ANTIBIOTICS AM LABS VENOUS DOPPLER
--- NOTE | 2017-01-08 10:44 | Diagnostic Imaging Report ---
Barium swallow (esophagram) HISTORY: Dysphagia, hiatal hernia Exam is limited to overhead radiographic images. The exam demonstrates a large hiatal hernia with virtually the entire stomach situated in the right upper hemithorax. Dysmotility with several tertiary contractions noted in the esophagus. No obvious intraluminal abnormalities. IMPRESSION: 1. Large hiatal hernia with virtually the entire stomach situated in the right upper hemithorax 2. Mild esophageal dysmotility
--- NOTE | 2017-01-08 11:55 | GI Progress Note ---
Subjective - Review of Systems Service Date: 01/08/17 Subjective: Pt with no abdominal pain, no dysphagia. Feels well Objective - Results Result Diagrams: 01/07/17 06:10 01/07/17 06:10 Recent Labs: Laboratory Last Values WBC 14.2 Th/cmm (4.8-10.8) H 01/07/17 06:10 RBC 4.36 Mil/cmm (3.80-5.20) 01/07/17 06:10 Hgb 12.2 gm/dL (11.7-16.1) 01/07/17 06:10 Hct 37.7 % (35.0-45.0) 01/07/17 06:10 MCV 86.4 fl (81-100) 01/07/17 06:10 MCH 27.9 pg (27.0-31.0) 01/07/17 06:10 MCHC Differential 32.3 pg (28.0-36.0) 01/07/17 06:10 RDW 13.6 % (11.5-20.0) 01/07/17 06:10 Plt Count 457 Th/cmm (150-400) H 01/07/17 06:10 MPV 8.3 fl 01/07/17 06:10 Neutrophils % 73.5 % (40.0-80.0) 01/07/17 06:10 Lymphocytes % 17.6 % (20.0-50.0) L 01/07/17 06:10 Monocytes % 3.2 % (2.0-10.0) 01/07/17 06:10 Eosinophils % 5.6 % (0.0-5.0) H 01/07/17 06:10 Basophils % 0.1 % (0.0-2.0) 01/07/17 06:10 PT 9.8 SECONDS (9.5-11.5) 01/06/17 00:33 INR 0.94 (0.5-1.4) 01/06/17 00:33 PTT (Actin FS) 23.2 SECONDS (26.0-38.0) L 01/06/17 00:33 Sodium 137 mEq/L (136-145) 01/07/17 06:10 Potassium 4.0 mEq/L (3.5-5.1) 01/07/17 06:10 Chloride 105 mEq/L (98-107) 01/07/17 06:10 Carbon Dioxide 27.2 mEq/L (21.0-31.0) 01/07/17 06:10 Anion Gap 8.8 (7.0-16.0) 01/07/17 06:10 BUN 24 mg/dL (7-25) 01/07/17 06:10 Creatinine 1.1 mg/dL (0.6-1.2) 01/07/17 06:10 Est GFR ( Amer) > 60.0 ml/min (>90) 01/07/17 06:10 Est GFR (Non-Af Amer) 52.2 ml/min 01/07/17 06:10 BUN/Creatinine Ratio 21.8 01/07/17 06:10 Glucose 111 mg/dL (70-105) H 01/07/17 06:10 Whole Bld Lactic Acid 1.48 mmol/L (0.60-1.99) 01/06/17 00:33 Calcium 9.0 mg/dL (8.6-10.3) 01/07/17 06:10 Total Bilirubin 0.3 mg/dL (0.3-1.0) 01/06/17 06:15 AST 12 U/L (13-39) L 01/06/17 06:15 ALT 12 U/L (7-52) 01/06/17 06:15 Alkaline Phosphatase 94 U/L (34-104) 01/06/17 06:15 Troponin I 0.01 ng/mL (0.01-0.05) 01/06/17 00:33 Total Protein 7.5 gm/dL (6.0-8.3) 01/06/17 06:15 Albumin 3.1 gm/dL (3.7-5.3) L 01/06/17 06:15 Globulin 4.4 gm/dL 01/06/17 06:15 Albumin/Globulin Ratio 0.7 (1.0-1.8) L 01/06/17 06:15 Triglycerides 127 mg/dL (<150) 01/06/17 06:15 Cholesterol 134 mg/dL (<200) 01/06/17 06:15 LDL Cholesterol Direct 102 mg/dL (75-193) 01/06/17 06:15 HDL Cholesterol 24 mg/dL (23-92) 01/06/17 06:15 TSH 2.90 uIU/ml (0.34-5.60) 01/06/17 00:33 Urine Source CLEAN C 01/06/17 01:28 Urine Color ORANGE 01/06/17 01:28 Urine Clarity SLIGHT CLOUDY (CLEAR) 01/06/17 01:28 Urine pH 5.5 (4.6 - 8.0) 01/06/17 01:28 Ur Specific [place] >= 1.030 (1.005-1.030) 01/06/17 01:28 Urine Protein 30 mg/dL (NEGATIVE) H 01/06/17 01:28 Urine Glucose (UA) NEGATIVE mg/dL (NEGATIVE) 01/06/17 01:28 Urine Ketones NEGATIVE mg/dL (NEGATIVE) 01/06/17 01:28 Urine Blood NEGATIVE (NEGATIVE) 01/06/17 01:28 Urine Nitrate NEGATIVE (NEGATIVE) 01/06/17 01:28 Urine Bilirubin SMALL (NEGATIVE) H 01/06/17 01:28 Urine Ictotest NEGATIVE (NEGATIVE) 01/06/17 01:28 Urine Urobilinogen 1.0 E.U./dL (0.2 - 1.0) 01/06/17 01:28 Ur Leukocyte Esterase NEGATIVE (NEGATIVE) 01/06/17 01:28 Urine RBC 0-2 /hpf (0-5) 01/06/17 01:28 Urine WBC 0-2 /hpf (0-5) 01/06/17 01:28 Ur Epithelial Cells OCCASIONAL /lpf (FEW) 01/06/17 01:28 Urine Bacteria FEW /hpf (NONE SEEN) 01/06/17 01:28 Hyaline Casts 2-5 /lpf (0-2) H 01/06/17 01:28 Vancomycin Trough 13.0 ug/mL (10-20) 01/07/17 06:10 RPR NONREACTIVE (NONREACTIVE) 01/06/17 00:33 - Physical Exam Vitals and I&O: Vital Signs Temp 96.7 F 01/08/17 08:00 Pulse 85 01/08/17 08:00 Resp 18 01/08/17 08:00 BP 114/71 01/08/17 08:00 Pulse Ox 95 01/08/17 08:00 Intake & Output 01/07/17 01/08/17 01/08/17 18:59 06:59 18:59 Intake Total 1900 290 Output Total 2680 1800 Balance -780 -1510 Weight (lbs) 107.955 kg 107.592 kg Intake: Intake, IV Amount 550 50 Piperacillin Sodium/ 50 50 Tazobact 3.375 gm In Sodium Chloride 0.9% 50 ml @ 100 mls/hr IV Q8HR [facility] Rx#:[id number] Vancomycin HCl 1.5 gm In 500 Sodium Chloride 0.9% 500 ml @ 250 mls/hr IV Q24H [facility] Rx#:[id number] Oral 1350 240 Output: Urine 2680 1800 Other: # Bowel Movements 0 0 Active Medications: Current Medications Piperacillin Sod/Tazobactam (Sod 3.375 gm/ Sodium Chloride) 50 mls @ 100 mls/ hr IV Q8HR [facility] Stop: 03/07/17 04:59 Last Admin: 01/08/17 06:35 Dose: 100 mls/hr Vancomycin HCl 1.5 gm/ Sodium (Chloride) 500 mls @ 250 mls/hr IV Q24H [facility] Stop: 03/08/17 07:59 Last Admin: 01/08/17 08:31 Dose: 250 mls/hr Miscellaneous (Vancomycin Iv Per Pharmacy) 1 [facility] DAILY [facility] Stop: 03/07/17 08:59 Miscellaneous (Vte Chemical Prophylaxis Screen/ Admission) 1 [facility] PRN PRN PRN Reason: PROTOCOL Stop: 03/07/17 12:25 Morphine Sulfate (Morphine) 2 mg IVP Q3H PRN PRN Reason: Pain (Severe) Stop: 03/07/17 02:06 Morphine Sulfate (Morphine) 1 mg IVP Q3HR PRN PRN Reason: Pain (Moderate) Stop: 03/07/17 03:10 Mupirocin (Bactroban Oint) 1 appl NS BID [facility] Stop: 01/12/17 09:01 Last Admin: 01/08/17 08:51 Dose: 1 appl Ondansetron HCl (Zofran) 4 mg IV Q6H PRN PRN Reason: Nausea / Vomiting Stop: 03/07/17 03:10 General: Alert, Oriented x3, No acute distress HEENT: Atraumatic Cardiovascular: Regular rate Abdomen: Bowel sounds, Soft, Other (non tender, no rebound, no guard) Assessment/Plan - Assessment Assessment: # hiatal hernia - Large hiatal hernia demonstrated on both CT and barium swallow with the entire stomach above the level of the diaphragm. HOwever, the patient remains asymptomatic and has not had dysphagia, vomiting, acid reflux for the past 40 years. This type of hernia would require surgical repair, likely at a tertiary care facility, but only if symptomatic. - Can give daily po PPI if she develops acid reflux # CHF # Dermatitis Receiving abx as per primary Thank you for allowing me to partipate in the care of this patient. GI will sign off, please call with further questions.
[2017-01-09 07:13] LABS: % BASOPHILS 0.2 % (0.0-2.0); % EOSINOPHILS 5.7 % (0.0-5.0); % MONOCYTES 3.3 % (2.0-10.0); % NEUTROPHILS 69.8 % (40.0-80.0); HEMATOCRIT 39.3 % (35.0-45.0); HEMOGLOBIN 12.9 gm/dL (11.7-16.1); MEAN CELL VOLUME 85.7 fl (81-100); MEAN CORPUSCULAR HEMOGLOBIN 28.1 pg (27.0-31.0); MEAN CORPUSCULAR HGB CONC 32.8 pg (28.0-36.0); NEUTROPHILE ABSOLUTE 9.5 Th/cmm (1.8-8.0); PLATELET COUNT 462 Th/cmm (150-400); RED BLOOD COUNT 4.59 Mil/cmm (3.80-5.20); RED CELL DISTRIBUTION WIDTH 13.2 % (11.5-20.0)
[2017-01-09 07:24] LABS: WHITE BLOOD COUNT 13.7 Th/cmm (4.8-10.8)
[2017-01-09 07:52] LABS: BUN - UREA NITROGEN 24 mg/dL (7-25); BUN/CREATININE RATIO 21.8; CALCIUM SERUM 9.4 mg/dL (8.6-10.3); CARBON DIOXIDE 24.2 mEq/L (21.0-31.0); CHLORIDE 106 mEq/L (98-107); CREATININE - SERUM 1.1 mg/dL (0.6-1.2); GLUCOSE 105 mg/dL (70-105); POTASSIUM SERUM 4.2 mEq/L (3.5-5.1); SODIUM SERUM 134 mEq/L (136-145)
[2017-01-09 07:53] LABS: VANCOMYCIN TROUGH 13.9 ug/mL (10-20)
[2017-01-09] MEDS: Vancomycin HCl 1.5 GM in Sodium Chloride 0.9% 500 ML IV SCH (08:24)
[2017-01-09] MEDS: Pantoprazole 40 mg EC Tab PO SCH (08:41)
--- NOTE | 2017-01-09 13:21 | General Progress Note ---
Subjective - Review of Systems Events since last encounter: patient with no distress awake , alert Objective - Results Result Diagrams: 01/09/17 07:05 01/09/17 07:05 Recent Labs: Laboratory Last Values WBC 13.7 Th/cmm (4.8-10.8) H 01/09/17 07:05 RBC 4.59 Mil/cmm (3.80-5.20) 01/09/17 07:05 Hgb 12.9 gm/dL (11.7-16.1) 01/09/17 07:05 Hct 39.3 % (35.0-45.0) 01/09/17 07:05 MCV 85.7 fl (81-100) 01/09/17 07:05 MCH 28.1 pg (27.0-31.0) 01/09/17 07:05 MCHC Differential 32.8 pg (28.0-36.0) 01/09/17 07:05 RDW 13.2 % (11.5-20.0) 01/09/17 07:05 Plt Count 462 Th/cmm (150-400) H 01/09/17 07:05 MPV 8.0 fl 01/09/17 07:05 Neutrophils % 69.8 % (40.0-80.0) 01/09/17 07:05 Lymphocytes % 21.0 % (20.0-50.0) 01/09/17 07:05 Monocytes % 3.3 % (2.0-10.0) 01/09/17 07:05 Eosinophils % 5.7 % (0.0-5.0) H 01/09/17 07:05 Basophils % 0.2 % (0.0-2.0) 01/09/17 07:05 PT 9.8 SECONDS (9.5-11.5) 01/06/17 00:33 INR 0.94 (0.5-1.4) 01/06/17 00:33 PTT (Actin FS) 23.2 SECONDS (26.0-38.0) L 01/06/17 00:33 Sodium 134 mEq/L (136-145) L 01/09/17 07:05 Potassium 4.2 mEq/L (3.5-5.1) 01/09/17 07:05 Chloride 106 mEq/L (98-107) 01/09/17 07:05 Carbon Dioxide 24.2 mEq/L (21.0-31.0) 01/09/17 07:05 Anion Gap 8.0 (7.0-16.0) 01/09/17 07:05 BUN 24 mg/dL (7-25) 01/09/17 07:05 Creatinine 1.1 mg/dL (0.6-1.2) 01/09/17 07:05 Est GFR ( Amer) > 60.0 ml/min (>90) 01/09/17 07:05 Est GFR (Non-Af Amer) 52.2 ml/min 01/09/17 07:05 BUN/Creatinine Ratio 21.8 01/09/17 07:05 Glucose 105 mg/dL (70-105) 01/09/17 07:05 Whole Bld Lactic Acid 1.48 mmol/L (0.60-1.99) 01/06/17 00:33 Calcium 9.4 mg/dL (8.6-10.3) 01/09/17 07:05 Total Bilirubin 0.3 mg/dL (0.3-1.0) 01/06/17 06:15 AST 12 U/L (13-39) L 01/06/17 06:15 ALT 12 U/L (7-52) 01/06/17 06:15 Alkaline Phosphatase 94 U/L (34-104) 01/06/17 06:15 Troponin I 0.01 ng/mL (0.01-0.05) 01/06/17 00:33 Total Protein 7.5 gm/dL (6.0-8.3) 01/06/17 06:15 Albumin 3.1 gm/dL (3.7-5.3) L 01/06/17 06:15 Globulin 4.4 gm/dL 01/06/17 06:15 Albumin/Globulin Ratio 0.7 (1.0-1.8) L 01/06/17 06:15 Triglycerides 127 mg/dL (<150) 01/06/17 06:15 Cholesterol 134 mg/dL (<200) 01/06/17 06:15 LDL Cholesterol Direct 102 mg/dL (75-193) 01/06/17 06:15 HDL Cholesterol 24 mg/dL (23-92) 01/06/17 06:15 TSH 2.90 uIU/ml (0.34-5.60) 01/06/17 00:33 Urine Source CLEAN C 01/06/17 01:28 Urine Color ORANGE 01/06/17 01:28 Urine Clarity SLIGHT CLOUDY (CLEAR) 01/06/17 01:28 Urine pH 5.5 (4.6 - 8.0) 01/06/17 01:28 Ur Specific [place] >= 1.030 (1.005-1.030) 01/06/17 01:28 Urine Protein 30 mg/dL (NEGATIVE) H 01/06/17 01:28 Urine Glucose (UA) NEGATIVE mg/dL (NEGATIVE) 01/06/17 01:28 Urine Ketones NEGATIVE mg/dL (NEGATIVE) 01/06/17 01:28 Urine Blood NEGATIVE (NEGATIVE) 01/06/17 01:28 Urine Nitrate NEGATIVE (NEGATIVE) 01/06/17 01:28 Urine Bilirubin SMALL (NEGATIVE) H 01/06/17 01:28 Urine Ictotest NEGATIVE (NEGATIVE) 01/06/17 01:28 Urine Urobilinogen 1.0 E.U./dL (0.2 - 1.0) 01/06/17 01:28 Ur Leukocyte Esterase NEGATIVE (NEGATIVE) 01/06/17 01:28 Urine RBC 0-2 /hpf (0-5) 01/06/17 01:28 Urine WBC 0-2 /hpf (0-5) 01/06/17 01:28 Ur Epithelial Cells OCCASIONAL /lpf (FEW) 01/06/17 01:28 Urine Bacteria FEW /hpf (NONE SEEN) 01/06/17 01:28 Hyaline Casts 2-5 /lpf (0-2) H 01/06/17 01:28 Vancomycin Trough 13.9 ug/mL (10-20) 01/09/17 07:05 RPR NONREACTIVE (NONREACTIVE) 01/06/17 00:33 - Physical Exam Vitals and I&O: Vital Signs Temp 97 F 01/09/17 08:00 Pulse 85 01/09/17 08:00 Resp 20 01/09/17 08:00 BP 113/69 01/09/17 08:00 Pulse Ox 96 01/09/17 08:00 Intake & Output 01/08/17 01/09/17 01/09/17 18:59 06:59 18:59 Intake Total 600 100 Output Total 1800 Balance 600 -1700 Weight (lbs) 106.141 kg Intake: Intake, IV Amount 600 100 Piperacillin Sodium/ 100 100 Tazobact 3.375 gm In Sodium Chloride 0.9% 50 ml @ 100 mls/hr IV Q8HR [facility] Rx#:[id number] Vancomycin HCl 1.5 gm In 500 Sodium Chloride 0.9% 500 ml @ 250 mls/hr IV Q24H [facility] Rx#:[id number] Output: Urine 1800 Other: # Bowel Movements 1 Active Medications: Current Medications Piperacillin Sod/Tazobactam (Sod 3.375 gm/ Sodium Chloride) 50 mls @ 100 mls/ hr IV Q8HR [facility] Stop: 03/07/17 04:59 Last Infusion: 01/09/17 04:53 Dose: Infused Vancomycin HCl 1.5 gm/ Sodium (Chloride) 500 mls @ 250 mls/hr IV Q24H [facility] Stop: 03/08/17 07:59 Last Admin: 01/09/17 08:24 Dose: 250 mls/hr Miscellaneous (Vancomycin Iv Per Pharmacy) 1 ea DAILY [facility] Stop: 03/07/17 08:59 Miscellaneous (Vte Chemical Prophylaxis Screen/ Admission) 1 [facility] PRN PRN PRN Reason: PROTOCOL Stop: 03/07/17 12:25 Morphine Sulfate (Morphine) 2 mg IVP Q3H PRN PRN Reason: Pain (Severe) Stop: 03/07/17 02:06 Morphine Sulfate (Morphine) 1 mg IVP Q3HR PRN PRN Reason: Pain (Moderate) Stop: 03/07/17 03:10 Last Admin: 01/08/17 23:44 Dose: 1 mg Mupirocin (Bactroban Oint) 1 appl NS BID [facility] Stop: 01/12/17 09:01 Last Admin: 01/09/17 08:24 Dose: 1 appl Ondansetron HCl (Zofran) 4 mg IV Q6H PRN PRN Reason: Nausea / Vomiting Stop: 03/07/17 03:10 Pantoprazole Sodium (Protonix) 40 mg PO DAILY [facility] Stop: 03/10/17 08:59 Last Admin: 01/09/17 08:41 Dose: 40 mg General: Alert, Oriented x3, No acute distress HEENT: Atraumatic Cardiovascular: Regular rate Abdomen: Bowel sounds, Soft, Other (non tender, no rebound, no guard) Assessment/Plan - Assessment Assessment: Cellulitis Bilateral Lower Extremities LEUCKOCYTOSIS ANEMIA ACUTE UTI HTN CHF MALNUTRITION - Plan Plan: EMPIRIC IV ANTIBIOTICS AM LABS VENOUS DOPPLER
--- NOTE | 2017-01-09 14:17 | General Progress Note ---
Subjective - Review of Systems Service Date: 01/09/17 Events since last encounter: esophagram noted while almost all of stomach is in the chest, patient denies dysphagia, vomiting or pain will sign off Objective - Results Result Diagrams: 01/09/17 07:05 01/09/17 07:05 Recent Labs: Laboratory Last Values WBC 13.7 Th/cmm (4.8-10.8) H 01/09/17 07:05 RBC 4.59 Mil/cmm (3.80-5.20) 01/09/17 07:05 Hgb 12.9 gm/dL (11.7-16.1) 01/09/17 07:05 Hct 39.3 % (35.0-45.0) 01/09/17 07:05 MCV 85.7 fl (81-100) 01/09/17 07:05 MCH 28.1 pg (27.0-31.0) 01/09/17 07:05 MCHC Differential 32.8 pg (28.0-36.0) 01/09/17 07:05 RDW 13.2 % (11.5-20.0) 01/09/17 07:05 Plt Count 462 Th/cmm (150-400) H 01/09/17 07:05 MPV 8.0 fl 01/09/17 07:05 Neutrophils % 69.8 % (40.0-80.0) 01/09/17 07:05 Lymphocytes % 21.0 % (20.0-50.0) 01/09/17 07:05 Monocytes % 3.3 % (2.0-10.0) 01/09/17 07:05 Eosinophils % 5.7 % (0.0-5.0) H 01/09/17 07:05 Basophils % 0.2 % (0.0-2.0) 01/09/17 07:05 PT 9.8 SECONDS (9.5-11.5) 01/06/17 00:33 INR 0.94 (0.5-1.4) 01/06/17 00:33 PTT (Actin FS) 23.2 SECONDS (26.0-38.0) L 01/06/17 00:33 Sodium 134 mEq/L (136-145) L 01/09/17 07:05 Potassium 4.2 mEq/L (3.5-5.1) 01/09/17 07:05 Chloride 106 mEq/L (98-107) 01/09/17 07:05 Carbon Dioxide 24.2 mEq/L (21.0-31.0) 01/09/17 07:05 Anion Gap 8.0 (7.0-16.0) 01/09/17 07:05 BUN 24 mg/dL (7-25) 01/09/17 07:05 Creatinine 1.1 mg/dL (0.6-1.2) 01/09/17 07:05 Est GFR ( Amer) > 60.0 ml/min (>90) 01/09/17 07:05 Est GFR (Non-Af Amer) 52.2 ml/min 01/09/17 07:05 BUN/Creatinine Ratio 21.8 01/09/17 07:05 Glucose 105 mg/dL (70-105) 01/09/17 07:05 Whole Bld Lactic Acid 1.48 mmol/L (0.60-1.99) 01/06/17 00:33 Calcium 9.4 mg/dL (8.6-10.3) 01/09/17 07:05 Total Bilirubin 0.3 mg/dL (0.3-1.0) 01/06/17 06:15 AST 12 U/L (13-39) L 01/06/17 06:15 ALT 12 U/L (7-52) 01/06/17 06:15 Alkaline Phosphatase 94 U/L (34-104) 01/06/17 06:15 Troponin I 0.01 ng/mL (0.01-0.05) 01/06/17 00:33 Total Protein 7.5 gm/dL (6.0-8.3) 01/06/17 06:15 Albumin 3.1 gm/dL (3.7-5.3) L 01/06/17 06:15 Globulin 4.4 gm/dL 01/06/17 06:15 Albumin/Globulin Ratio 0.7 (1.0-1.8) L 01/06/17 06:15 Triglycerides 127 mg/dL (<150) 01/06/17 06:15 Cholesterol 134 mg/dL (<200) 01/06/17 06:15 LDL Cholesterol Direct 102 mg/dL (75-193) 01/06/17 06:15 HDL Cholesterol 24 mg/dL (23-92) 01/06/17 06:15 TSH 2.90 uIU/ml (0.34-5.60) 01/06/17 00:33 Urine Source CLEAN C 01/06/17 01:28 Urine Color ORANGE 01/06/17 01:28 Urine Clarity SLIGHT CLOUDY (CLEAR) 01/06/17 01:28 Urine pH 5.5 (4.6 - 8.0) 01/06/17 01:28 Ur Specific [place] >= 1.030 (1.005-1.030) 01/06/17 01:28 Urine Protein 30 mg/dL (NEGATIVE) H 01/06/17 01:28 Urine Glucose (UA) NEGATIVE mg/dL (NEGATIVE) 01/06/17 01:28 Urine Ketones NEGATIVE mg/dL (NEGATIVE) 01/06/17 01:28 Urine Blood NEGATIVE (NEGATIVE) 01/06/17 01:28 Urine Nitrate NEGATIVE (NEGATIVE) 01/06/17 01:28 Urine Bilirubin SMALL (NEGATIVE) H 01/06/17 01:28 Urine Ictotest NEGATIVE (NEGATIVE) 01/06/17 01:28 Urine Urobilinogen 1.0 E.U./dL (0.2 - 1.0) 01/06/17 01:28 Ur Leukocyte Esterase NEGATIVE (NEGATIVE) 01/06/17 01:28 Urine RBC 0-2 /hpf (0-5) 01/06/17 01:28 Urine WBC 0-2 /hpf (0-5) 01/06/17 01:28 Ur Epithelial Cells OCCASIONAL /lpf (FEW) 01/06/17 01:28 Urine Bacteria FEW /hpf (NONE SEEN) 01/06/17 01:28 Hyaline Casts 2-5 /lpf (0-2) H 01/06/17 01:28 Vancomycin Trough 13.9 ug/mL (10-20) 01/09/17 07:05 RPR NONREACTIVE (NONREACTIVE) 01/06/17 00:33 - Physical Exam Vitals and I&O: Vital Signs Temp 97 F 01/09/17 08:00 Pulse 85 01/09/17 08:00 Resp 20 01/09/17 08:00 BP 113/69 01/09/17 08:00 Pulse Ox 96 01/09/17 08:00 Intake & Output 01/08/17 01/09/17 01/09/17 18:59 06:59 18:59 Intake Total 600 100 Output Total 1800 Balance 600 -1700 Weight (lbs) 106.141 kg Intake: Intake, IV Amount 600 100 Piperacillin Sodium/ 100 100 Tazobact 3.375 gm In Sodium Chloride 0.9% 50 ml @ 100 mls/hr IV Q8HR [facility] Rx#:[id number] Vancomycin HCl 1.5 gm In 500 Sodium Chloride 0.9% 500 ml @ 250 mls/hr IV Q24H [facility] Rx#:[id number] Output: Urine 1800 Other: # Bowel Movements 1 Active Medications: Current Medications Vancomycin HCl 1.5 gm/ Sodium (Chloride) 500 mls @ 250 mls/hr IV Q24H [facility] Stop: 03/08/17 07:59 Last Admin: 01/09/17 08:24 Dose: 250 mls/hr Piperacillin Sod/Tazobactam (Sod 3.375 gm/ Sodium Chloride) 50 mls @ 100 mls/ hr IV Q8HR [facility] Stop: 03/10/17 12:59 Miscellaneous (Vancomycin Iv Per Pharmacy) 1 ea DAILY [facility] Stop: 03/07/17 08:59 Miscellaneous ([facility] [employer] Prophylaxis Screen/ Admission) 1 [facility] PRN PRN PRN Reason: PROTOCOL Stop: 03/07/17 12:25 Morphine Sulfate (Morphine) 2 mg IVP Q3H PRN PRN Reason: Pain (Severe) Stop: 03/07/17 02:06 Morphine Sulfate (Morphine) 1 mg IVP Q3HR PRN PRN Reason: Pain (Moderate) Stop: 03/07/17 03:10 Last Admin: 01/08/17 23:44 Dose: 1 mg Mupirocin (Bactroban Oint) 1 appl NS BID [facility] Stop: 01/12/17 09:01 Last Admin: 01/09/17 08:24 Dose: 1 appl Ondansetron HCl (Zofran) 4 mg IV Q6H PRN PRN Reason: Nausea / Vomiting Stop: 03/07/17 03:10 Pantoprazole Sodium (Protonix) 40 mg PO DAILY [facility] Stop: 03/10/17 08:59 Last Admin: 01/09/17 08:41 Dose: 40 mg General: Alert, Oriented x3, No acute distress HEENT: Atraumatic Cardiovascular: Regular rate Abdomen: Bowel sounds, Soft, Other (non tender, no rebound, no guard)
[2017-01-09] MEDS ORDERED: Probiotic Screen MC PRN (17:18)
[2017-01-09] MEDS: Lactobacillus Rhamnosus 10 Billion CFU Capsule PO SCH (18:35)
[2017-01-09] MEDS ORDERED: Piperacillin Sodium/Tazobact 3.375 gm Vial IV ONE (20:48)
[2017-01-10 07:06] LABS: % EOSINOPHILS 4.5 % (0.0-5.0); % LYMPHOCYTES 22.9 % (20.0-50.0); % MONOCYTES 4.7 % (2.0-10.0); % NEUTROPHILS 67.9 % (40.0-80.0); HEMATOCRIT 41.5 % (35.0-45.0); HEMOGLOBIN 13.6 gm/dL (11.7-16.1); MEAN CORPUSCULAR HEMOGLOBIN 28.4 pg (27.0-31.0); MEAN CORPUSCULAR HGB CONC 32.7 pg (28.0-36.0); MEAN PLATELET VOLUME 8.2 fl; NEUTROPHILE ABSOLUTE 9.4 Th/cmm (1.8-8.0); PLATELET COUNT 501 Th/cmm (150-400); RED BLOOD COUNT 4.77 Mil/cmm (3.80-5.20); RED CELL DISTRIBUTION WIDTH 13.2 % (11.5-20.0)
[2017-01-10 08:11] LABS: WHITE BLOOD COUNT 13.9 Th/cmm (4.8-10.8)
[2017-01-10] MEDS: Pantoprazole 40 mg EC Tab PO SCH (09:22)
[2017-01-10] MEDS: Lactobacillus Rhamnosus 10 Billion CFU Capsule PO SCH (09:22)
[2017-01-10] MEDS: Vancomycin HCl 1.5 GM in Sodium Chloride 0.9% 500 ML IV SCH (09:22)
--- NOTE | 2017-01-10 10:33 | Progress Notes ---
DATE: 01/10/2017 SUBJECTIVE: The patient was seen in her room, lying on the bed. The patient is asleep, but easily arousable. The patient denies any pain or discomfort at this time. The patient appears to be comfortable in no acute distress. OBJECTIVE: VITAL SIGNS: Temperature 97.7, heart rate of 99, blood pressure 134/64, respirations 20, 94% on room air. HEENT: Head is atraumatic, normocephalic. Eyes: Bilateral conjunctivae are clear. Bilateral pupils are equally round and reactive. NECK: Supple. No JVD. CARDIOVASCULAR: S1 and S2, without murmur. PULMONARY: Mild inspiratory wheezing noted. GASTROINTESTINAL: Soft and nontender without guarding. Positive bowel sounds. MUSCULOSKELETAL: No clubbing, no cyanosis. JOB# [id number]
[2017-01-11 08:31] LABS: % EOSINOPHILS 6.1 % (0.0-5.0); % MONOCYTES 5.7 % (2.0-10.0); % NEUTROPHILS 62.2 % (40.0-80.0); HEMATOCRIT 41.6 % (35.0-45.0); HEMOGLOBIN 13.7 gm/dL (11.7-16.1); MEAN CELL VOLUME 85.8 fl (81-100); MEAN CORPUSCULAR HEMOGLOBIN 28.2 pg (27.0-31.0); MEAN CORPUSCULAR HGB CONC 32.9 pg (28.0-36.0); MEAN PLATELET VOLUME 7.9 fl; NEUTROPHILE ABSOLUTE 7.4 Th/cmm (1.8-8.0); PLATELET COUNT 527 Th/cmm (150-400); RED BLOOD COUNT 4.84 Mil/cmm (3.80-5.20); RED CELL DISTRIBUTION WIDTH 13.3 % (11.5-20.0); WHITE BLOOD COUNT 11.9 Th/cmm (4.8-10.8)
[2017-01-11 08:52] LABS: BUN - UREA NITROGEN 24 mg/dL (7-25); CALCIUM SERUM 9.3 mg/dL (8.6-10.3); CHLORIDE 106 mEq/L (98-107); GLUCOSE 106 mg/dL (70-105); SODIUM SERUM 134 mEq/L (136-145)
[2017-01-11] MEDS: Vancomycin HCl 1.5 GM in Sodium Chloride 0.9% 500 ML IV SCH (09:17)
[2017-01-11] MEDS: Lactobacillus Rhamnosus 10 Billion CFU Capsule PO SCH (09:17)
[2017-01-11] MEDS: Pantoprazole 40 mg EC Tab PO SCH (09:17)
--- NOTE | 2017-01-11 11:26 | General Progress Note ---
Subjective - Review of Systems Events since last encounter: patient with no distress awake, alert Objective - Results Result Diagrams: 01/11/17 08:23 01/11/17 08:23 Recent Labs: Laboratory Last Values WBC 11.9 Th/cmm (4.8-10.8) H 01/11/17 08:23 RBC 4.84 Mil/cmm (3.80-5.20) 01/11/17 08:23 Hgb 13.7 gm/dL (11.7-16.1) 01/11/17 08:23 Hct 41.6 % (35.0-45.0) 01/11/17 08:23 MCV 85.8 fl (81-100) 01/11/17 08:23 MCH 28.2 pg (27.0-31.0) 01/11/17 08:23 MCHC Differential 32.9 pg (28.0-36.0) 01/11/17 08:23 RDW 13.3 % (11.5-20.0) 01/11/17 08:23 Plt Count 527 Th/cmm (150-400) H 01/11/17 08:23 MPV 7.9 fl 01/11/17 08:23 Neutrophils % 62.2 % (40.0-80.0) 01/11/17 08:23 Lymphocytes % 25.0 % (20.0-50.0) 01/11/17 08:23 Monocytes % 5.7 % (2.0-10.0) 01/11/17 08:23 Eosinophils % 6.1 % (0.0-5.0) H 01/11/17 08:23 Basophils % 1.0 % (0.0-2.0) 01/11/17 08:23 PT 9.8 SECONDS (9.5-11.5) 01/06/17 00:33 INR 0.94 (0.5-1.4) 01/06/17 00:33 PTT (Actin FS) 23.2 SECONDS (26.0-38.0) L 01/06/17 00:33 Sodium 134 mEq/L (136-145) L 01/11/17 08:23 Potassium 4.0 mEq/L (3.5-5.1) 01/11/17 08:23 Chloride 106 mEq/L (98-107) 01/11/17 08:23 Carbon Dioxide 24.0 mEq/L (21.0-31.0) 01/11/17 08:23 Anion Gap 8.0 (7.0-16.0) 01/11/17 08:23 BUN 24 mg/dL (7-25) 01/11/17 08:23 Creatinine 1.0 mg/dL (0.6-1.2) 01/11/17 08:23 Est GFR ( Amer) > 60.0 ml/min (>90) 01/11/17 08:23 Est GFR (Non-Af Amer) 58.3 ml/min 01/11/17 08:23 BUN/Creatinine Ratio 24.0 01/11/17 08:23 Glucose 106 mg/dL (70-105) H 01/11/17 08:23 Whole Bld Lactic Acid 1.48 mmol/L (0.60-1.99) 01/06/17 00:33 Calcium 9.3 mg/dL (8.6-10.3) 01/11/17 08:23 Total Bilirubin 0.3 mg/dL (0.3-1.0) 01/06/17 06:15 AST 12 U/L (13-39) L 01/06/17 06:15 ALT 12 U/L (7-52) 01/06/17 06:15 Alkaline Phosphatase 94 U/L (34-104) 01/06/17 06:15 Troponin I 0.01 ng/mL (0.01-0.05) 01/06/17 00:33 Total Protein 7.5 gm/dL (6.0-8.3) 01/06/17 06:15 Albumin 3.1 gm/dL (3.7-5.3) L 01/06/17 06:15 Globulin 4.4 gm/dL 01/06/17 06:15 Albumin/Globulin Ratio 0.7 (1.0-1.8) L 01/06/17 06:15 Triglycerides 127 mg/dL (<150) 01/06/17 06:15 Cholesterol 134 mg/dL (<200) 01/06/17 06:15 LDL Cholesterol Direct 102 mg/dL (75-193) 01/06/17 06:15 HDL Cholesterol 24 mg/dL (23-92) 01/06/17 06:15 TSH 2.90 uIU/ml (0.34-5.60) 01/06/17 00:33 Urine Source CLEAN C 01/06/17 01:28 Urine Color ORANGE 01/06/17 01:28 Urine Clarity SLIGHT CLOUDY (CLEAR) 01/06/17 01:28 Urine pH 5.5 (4.6 - 8.0) 01/06/17 01:28 Ur Specific [place] >= 1.030 (1.005-1.030) 01/06/17 01:28 Urine Protein 30 mg/dL (NEGATIVE) H 01/06/17 01:28 Urine Glucose (UA) NEGATIVE mg/dL (NEGATIVE) 01/06/17 01:28 Urine Ketones NEGATIVE mg/dL (NEGATIVE) 01/06/17 01:28 Urine Blood NEGATIVE (NEGATIVE) 01/06/17 01:28 Urine Nitrate NEGATIVE (NEGATIVE) 01/06/17 01:28 Urine Bilirubin SMALL (NEGATIVE) H 01/06/17 01:28 Urine Ictotest NEGATIVE (NEGATIVE) 01/06/17 01:28 Urine Urobilinogen 1.0 E.U./dL (0.2 - 1.0) 01/06/17 01:28 Ur Leukocyte Esterase NEGATIVE (NEGATIVE) 01/06/17 01:28 Urine RBC 0-2 /hpf (0-5) 01/06/17 01:28 Urine WBC 0-2 /hpf (0-5) 01/06/17 01:28 Ur Epithelial Cells OCCASIONAL /lpf (FEW) 01/06/17 01:28 Urine Bacteria FEW /hpf (NONE SEEN) 01/06/17 01:28 Hyaline Casts 2-5 /lpf (0-2) H 01/06/17 01:28 Vancomycin Trough 13.9 ug/mL (10-20) 01/09/17 07:05 RPR NONREACTIVE (NONREACTIVE) 01/06/17 00:33 - Physical Exam Vitals and I&O: Vital Signs Temp 97.1 F 01/11/17 09:37 Pulse 85 01/11/17 09:37 Resp 18 01/11/17 09:37 BP 134/59 01/11/17 09:37 Pulse Ox 93 01/11/17 09:37 Intake & Output 01/10/17 01/11/17 01/11/17 18:59 06:59 18:59 Intake Total 1100 580 Balance 1100 580 Weight (lbs) 98.43 kg 100.868 kg Intake: Intake, IV Amount 550 100 Piperacillin Sodium/ 50 100 Tazobact 3.375 gm In Sodium Chloride 0.9% 50 ml @ 100 mls/hr IV Q8HR [facility] Rx#:[id number] Vancomycin HCl 1.5 gm In 500 Sodium Chloride 0.9% 500 ml @ 250 mls/hr IV Q24H [facility] Rx#:[id number] Oral 550 480 Other: # Voids 650 3 # Bowel Movements 1 Stool Characteristics Soft Active Medications: Current Medications Vancomycin HCl 1.5 gm/ Sodium (Chloride) 500 mls @ 250 mls/hr IV Q24H [facility] Stop: 03/08/17 07:59 Last Admin: 01/11/17 09:17 Dose: 250 mls/hr Piperacillin Sod/Tazobactam (Sod 3.375 gm/ Sodium Chloride) 50 mls @ 100 mls/ hr IV Q8HR [facility] Stop: 03/10/17 12:59 Last Infusion: 01/11/17 05:07 Dose: Infused Lactobacillus Rhamnosus (Culturelle) 1 each PO DAILY [facility] Stop: 03/10/17 17:59 Last Admin: 01/11/17 09:17 Dose: 1 each Miscellaneous (Vancomycin Iv Per Pharmacy) 1 ea MC DAILY [facility] Stop: 03/07/17 08:59 Miscellaneous (Vte Chemical Prophylaxis Screen/ Admission) 1 [facility] PRN PRN PRN Reason: PROTOCOL Stop: 03/07/17 12:25 Miscellaneous (Probiotic Screen) 1 [facility] PRN PRN PRN Reason: PROTOCOL Stop: 03/10/17 17:17 Morphine Sulfate (Morphine) 2 mg IVP Q3H PRN PRN Reason: Pain (Severe) Stop: 03/07/17 02:06 Morphine Sulfate (Morphine) 1 mg IVP Q3HR PRN PRN Reason: Pain (Moderate) Stop: 03/07/17 03:10 Last Admin: 01/08/17 23:44 Dose: 1 mg Mupirocin (Bactroban Oint) 1 appl NS BID [facility] Stop: 01/12/17 09:01 Last Admin: 01/11/17 09:17 Dose: 1 appl Ondansetron HCl (Zofran) 4 mg IV Q6H PRN PRN Reason: Nausea / Vomiting Stop: 03/07/17 03:10 Pantoprazole Sodium (Protonix) 40 mg PO DAILY [facility] Stop: 03/10/17 08:59 Last Admin: 01/11/17 09:17 Dose: 40 mg General: Alert, Oriented x3, No acute distress HEENT: Atraumatic Cardiovascular: Regular rate Abdomen: Bowel sounds, Soft, Other (non tender, no rebound, no guard) Assessment/Plan - Assessment Assessment: Cellulitis Bilateral Lower Extremities LEUCKOCYTOSIS ANEMIA ACUTE UTI HTN CHF MALNUTRITION - Plan Plan: EMPIRIC IV ANTIBIOTICS AM LABS VENOUS DOPPLER Nutritional Asmnt/Malnutr-PDOC - Dietary Evaluation Malnutrition Findings (Please click <Entered> for more info): Nutritional Asmnt/Malnutrition Start: 01/10/17 11: 46 Text: Status: Complete Freq: Document 01/10/17 11:47 MMULHERN (Rec: 01/10/17 11:55 MMULHERN [id number]) Nutritional Asmnt/Malnutrition Patient General Information Nutritional Screening Moderate Risk Screening Diagnosis Cellulitis B/L lower extremities Pertinent Medical Hx/Surgical Hx CAD, CHF, HTN Subjective Information Patient was admitted for 1 week of bilateral lower extremity swelling and redness . Lying in bed at time of visit; patient with evident low extremity edema. Current Diet Order/ Nutrition Support 2 gm sodium Patient / S.O Can Pertinent Medications culturelle, zofran, protonix, abx Pertinent Labs (01/09) Na 134, albumin 3.1 Nutritional Hx/Data Height 1.68 m Height (Calculated Centimeters) 167.6 Current Weight (lbs) 98.43 kg Weight (Calculated Kilograms) 98.4 Weight (Calculated Grams) 70924.5 [place] Body Weight 130 % [place] Body Weight 166 Recent Weight Change No Weight Status Morbidly Obese GI Symptoms Food Allergies No Cultural/Ethnic/Restoration Belief None indicated Usual diet at home Regular Skin Integrity/Comment: Kul[place] 18, 3+ pitting edema, cellulitis Current %PO Good (75-100%) Estimated Nutritional Goals BEE in Kcals: Adj wt of IBW Calories/Kcals/Kg 25-30 kcal/kg based on ADj weight 69kg Kcals Calculated 5953-2519 kcal/day Protein: Adj wt of IBW Protein g/k-1.2 gm/kg adj weight Protein Calculated 70-80 gm/day Fluid: ml 3175-9375 ml/day (1 ml/kcal) Nutritional Problem 2. Problem Problem Obesity related to Etiology likely excessive intake aeb Signs/Symptoms: BMI 35 1. Problem Problem Atlered nutrition related labs related to Etiology electrolyte imbalance aeb Signs/Symptoms: Na 134 Intervention/Recommendation Comments 1. Continue 2 gm sodium diet as tolerated by patient. 2. Consider fluid restriction if edema and hyponatremia persists Expected Outcomes/Goals Expected Outcomes/Goals 1. Na normalizes. 2. weight trends toward IBW 3. Adequate oral intake to meet >75% of estimated nutrient needs.
--- NOTE | 2017-01-12 21:46 | Discharge Summary ---
DATE OF DISCHARGE: 01/11/2017 HOSPITAL COURSE: The patient came in with sepsis, swelling, and cellulitis of her left leg, and weeping, as well as right leg cellulitis. The patient also has anemia, UTI, hypertension, venous insufficiency, CHF and malnutrition. The patient was treated with IV antibiotics, and Dr. Dylan Bustos saw the patient. The patient improved and the patient was in a stable condition on 01/11/2017, was discharged on oral antibiotics and the patient was advised to keep her leg elevated. Follow up with me in the office in 2 days. The patient ____. CONDITION AT THE TIME OF DISCHARGE: Stable. MEDICATIONS: As noted in the reconciliation. JOB# [id number]
== END 2017-01-11 12:40 | disposition home or self-care (01) | DRG 872 ==
LOC: ER 23:25 → TELE 01-06 01:30
PROVIDERS: ADMIT Internal Medicine; ATTEND Internal Medicine
PROC: 02HV33Z Insertion of Infusion Device into Superior Vena Cava, Percutaneous Approach (ICD-10-PCS; principal; 2017-01-06)
DX: A41.9 Sepsis, unspecified organism (principal); E46 Unspecified protein-calorie malnutrition; I50.9 Heart failure, unspecified; I11.0 Hypertensive heart disease with heart failure; N39.0 Urinary tract infection, site not specified; D64.9 Anemia, unspecified; E11.9 Type 2 diabetes mellitus without complications; L03.116 Cellulitis of left lower limb; L03.115 Cellulitis of right lower limb; J98.11 Atelectasis; I25.10 Atherosclerotic heart disease of native coronary artery without angina pectoris; K44.9 Diaphragmatic hernia without obstruction or gangrene; F32.9 Major depressive disorder, single episode, unspecified; I87.2 Venous insufficiency (chronic) (peripheral); E27.9 Disorder of adrenal gland, unspecified; F17.210 Nicotine dependence, cigarettes, uncomplicated; N20.0 Calculus of kidney; L30.9 Dermatitis, unspecified; Z68.35 Body mass index [BMI] 35.0-35.9, adult
CPT/HCPCS: 36415-UA; 71010-TC; 71260-TC; 74220-TC; 80048-TC; 80053-TC; 80061-TC; 80202-TC; 81001-TC; 83605; 84443-TC; 84484-TC; 85025-TC; 85610-TC; 85730-TC; 86592-TC; 93005; 93970-TC-50; 96374; 96375; J0696; J1940; J2270; J2543; J3370; J7040; Q9967; Z7610

== ENCOUNTER 2017-06-30 00:07 | Inpatient (IN) | payer MEDICARE ==
[2017-06-30 01:57] LABS: % BASOPHILS 2.6 % (0.0-2.0); % LYMPHOCYTES 21.5 % (20.0-50.0); % MONOCYTES 4.2 % (2.0-10.0); % NEUTROPHILS 68.7 % (40.0-80.0); BASOPHILE ABSOLUTE 0.3 Th/cumm (0-0.2); EOSINOPHILE ABSOLUTE 0.3 Th/cmm (0.1-0.4); HEMATOCRIT 43.7 % (41.0-60); HEMOGLOBIN 14.1 gm/dL (12-16); LYMPHOCYTE ABSOLUTE 2.4 Th/cmm (1.5-3.0); MEAN CELL VOLUME 85.3 fl (81-100); MEAN CORPUSCULAR HEMOGLOBIN 27.5 pg (27.0-31.0); MEAN CORPUSCULAR HGB CONC 32.2 pg (28.0-36.0); MEAN PLATELET VOLUME 8.8 fl; MONOCYTE ABSOLUTE 0.5 Th/cmm (0.3-1.0); NEUTROPHILE ABSOLUTE 7.5 Th/cmm (1.8-8.0); RED BLOOD COUNT 5.12 Mil/cmm (3.80-5.20); RED CELL DISTRIBUTION WIDTH 14.3 % (11.5-20.0)
[2017-06-30 02:10] LABS: PLATELET COUNT 401 Th/cmm (150-400)
[2017-06-30 02:13] LABS: ALB/GLOB RATIO 0.9 (1.0-1.8); ALKALINE PHOSPHATASE 104 U/L (34-104); ANION GAP 12.4 (7.0-16.0); BILIRUBIN,TOTAL 0.3 mg/dL (0.3-1.0); BUN - UREA NITROGEN 40 mg/dL (7-25); CALCIUM SERUM 10.6 mg/dL (8.6-10.3); CARBON DIOXIDE 25.9 mEq/L (21.0-31.0); CHLORIDE 106 mEq/L (98-107); CREATININE - SERUM 1.1 mg/dL (0.6-1.2); GLUCOSE 80 mg/dL (70-105); POTASSIUM SERUM 4.3 mEq/L (3.5-5.1); SGOT 15 U/L (13-39); SGPT/ALT 15 U/L (7-52); SODIUM SERUM 140 mEq/L (136-145); TOTAL PROTEIN,SERUM 8.7 gm/dL (6.0-8.3)
--- NOTE | 2017-06-30 02:25 | ED Physician Chart ---
ED Chief Complaint/HPI - Patient Information Date Seen:: 06/30/17 Time Seen:: 02:00 Chief Complaint:: swelling, redness lower limbs History of Present Illness:: location: bilateral lower limbs quality: swelling of lower limbs, small sores severity: mild, moderate duration: several days context: pt lives at home, reports that she is having more swelling of her lower limbs and noted redness, pt decided to come to the ER this evening after consulting with her physician Dr. Mcguire. pt asked a friend to transport her to the ER. mod factors: none assoc s/s: none PSH: brain surgery, foot surgery family hx of NH - father of NH hx from pt Allergies:: Allergies Allergy/AdvReac Type Severity Reaction Status Date / Time No Known Allergies Allergy Verified 06/30/17 00:59 Vitals:: Vital Signs - 8 hr 06/30/17 00:30 Temp 97.2 F HR 96 RR 18 BP 135/76 O2 Sat % 98 Historian:: Patient, EMS, Other Review:: Nurse's Note Reviewed, EMS run form Reviewed ED Review of Systems - Review of Systems General/Constitutional: No fever, No chills, No weight loss, No weakness, No diaphoresis, No edema, No loss of appetite Skin: No skin lesions, No rash, No bruising Head: No headache, No light-headedness Eyes: No loss of vision, No pain, No diplopia ENT: No earache, No nasal drainage, No sore throat, No tinnitus Neck: No neck pain, No swelling, No thyromegaly, No stiffness, No mass noted Cardio Vascular: No chest pain, No palpitations, No PND, No orthopnea, No edema Pulmonary: No SOB, No cough, No sputum, No wheezing GI: No nausea, No vomiting, No diarrhea, No pain, No melena, No hematochezia, No constipation, No hematemesis G/U: No dysuria, No frequency, No hematuria Musculoskeletal: No bone or joint pain, No back pain, No muscle pain, Other ( bilateral lower limb pain) Endocrine: No polyuria, No polydipsia Psychiatric: No prior psych history, No depression, No anxiety, No suicidal ideation Hematopoietic: No bruising, No lymphadenopathy Allergic/Immuno: No urticaria, No angioedema Neurological: No syncope, No focal symptoms, No weakness, No paresthesia, No headache, No seizure, No dizziness, No confusion, No vertigo ED Past Medical History - Past Medical History Past Medical History: CVA/TIA, Other (cellulitis bilateral lower limbs, ) Social History: Non Smoker, No Alcohol, No Drug Use Surgical History: other (see HPI) Medication: Reviewed Family Medical History - Family Member Mother History Unknown: Yes Ethnicity: Non- Living Status: ED Physical Exam - Physical Examination General/Constitutional: Awake, Well-developed, well-nourished, Alert, No distress, GCS 15, Non-toxic appearing, Ambulatory Head: Atraumatic Eyes: Lids, conjuctiva normal, PERRL, EOMI Skin: Nl inspection, No skin lesions, No lymphadenopathy ENMT: External ears, nose nl, Nasal exam nl, Lips, teeth, gums nl Neck: Nontender Respiratory: Nl effort/Exclusion, Clear to Auscultation, No Wheeze/Rhonchi/Rales Cardio Vascular: RRR, No murmur, gallop, rubs, NL S1 S2 GI: No tenderness/rebounding/guarding, Normal BS's, No McBurney tenderness : No CVA tenderness Extremities: Full ROM, No edema (bilateral lower limb edema with erythema and honey crusted weeping on large open areas of denuded epithelium at bilateral lower limbs ) Neuro/Psych: Alert/oriented, Normal sensory exam, Normal motor strength, Judgement/insight normal, Mood normal, No focal deficits Misc: Normal back, No paraspinal tenderness ED Labs/Radiology/EKG Results - Lab Results Results: Laboratory Tests 06/30/17 01:45 WBC 11.0 H RBC 5.12 Hgb 14.1 Hct 43.7 MCV 85.3 MCH 27.5 MCHC Differential 32.2 RDW 14.3 Plt Count 401 H D MPV 8.8 Neutrophils % 68.7 Lymphocytes % 21.5 Monocytes % 4.2 Eosinophils % 3.0 Basophils % 2.6 H ED Assessment - Assessment General Assessment: pt in stable condition while in ER. lower limbs are cultured blood cultures are also performed pt reports that she has struggled with lower limb edema for many years. also reports that there is a family history of lower limb edema. ED Septic Shock - . Is Septic Shock (SBP<90, OR Lactate>4 mmol\L) present?: No - <6hrs of presentation: Vital Signs: Vital Signs - 8 hr 06/30/17 00:30 Temp 97.2 F HR 96 RR 18 BP 135/76 O2 Sat % 98 ED Reassessment (Disposition) - Reassessment Reassessment:: pt in stable condition while in ER. pt reports no fever at home. Reassessment Condition:: Improved - Diagnosis Diagnosis:: bilateral lower limb cellulitis - Aftercare/Follow up Instructions Aftercare/Follow-Up Instructions:: Refer to Discharge Instructions - Patient Disposition Discharge/Transfer:: Acute Care w/in this hosp Admitting Medical Physician:: Rex Mcguire Time:: 02:35 Condition at Disposition:: Stable, Improved
[2017-06-30] MEDS ORDERED: HYDROmorphone 1 mg/mL 1mL Syr ONE (02:56)
[2017-06-30] MEDS ORDERED: HYDROmorphone 1 mg/mL 1mL Syr IVP STA (02:58)
[2017-06-30] MEDS ORDERED: Morphine Sulfate 2 mg/mL 1mL Syr IV PRN ×2 (03:36)
[2017-06-30] MEDS ORDERED: Piperacillin Sodium/Tazobact 3.375 gm Vial IV ONE (04:35)
[2017-06-30] MEDS ORDERED: Vancomycin HCl 1.5 GM in Sodium Chloride 0.9% 500 ML IV ONE (05:00)
[2017-06-30 05:08] VITALS: BP 122/55
[2017-06-30] MEDS ORDERED: VTE Chemical Prophylaxis Screen/Admission MC PRN (11:17)
--- NOTE | 2017-06-30 12:03 | History and Physical ---
History of Present Illness - HPI Chief Complaint: swelling bilateral lower limbs HPI: This is a 72 year old female who has a history of swelling and redness of bilateral lower extremity. Patient is now admitted to the medsur unit. Vital Signs: Last Vital Signs Temp 97.3 F 06/30/17 08:38 Pulse 93 06/30/17 08:38 Resp 18 06/30/17 08:38 BP 115/72 06/30/17 08:38 Pulse Ox 96 06/30/17 08:38 Family Medical History - Family Member Mother History Unknown: Yes Ethnicity: Non- Living Status: Social History Smoke: No Alcohol: None Drugs: None Lives: With Family - Medications Home Medications: Home Medication Medication Instructions Recorded Type NK [No Home Meds] 06/30/17 History - Allergies Allergies/Adverse Reactions: Allergies Allergy/AdvReac Type Severity Reaction Status Date / Time No Known Allergies Allergy Verified 06/30/17 00:59 Review of Systems - Review of Systems Constitutional: Report: No Significant Eyes: Report: No Significant ENT: Report: No Significant Respiratory: Report: No Significant Cardiovascular: Report: No Significant Gastrointestinal: Report: No Significant Musculoskeletal: Report: No Significant Skin: Report: No Significant Neurological: Report: No Significant Physical Exam - Physical Exam HEENT: Report: Ears Nose Throat within normal limits Neck: Report: Within normal limits Cardiovascular Systems: Report: +s1/s2 noted, Regular, Rate and Rhythm Respiratory: Report: Breath Sounds are within normal limits Abdomen: Report: Non-tender to palpation Back: Report: Inspection of back is within normal limits. Skin: Report: Color of skin is within normal limits Neuro/Psych: Report: Mood affect is within normal limits - Lab Results All Lab Results last 24 hours: Laboratory Results - last 24 hr 06/30/17 07:24 POC Glucose 94 - Assessment Assessment: cellulitis bilateral lower limbs hx cva - Plan Plan: ivabx id consult cbc/bmp in am continue current orders
--- NOTE | 2017-06-30 13:19 | Consultation ---
Consult Note - Consult Note Service Date: 06/30/17 Referring Physician: Rex Mcguire Consult Note: Please see the dictated report.
[2017-06-30] MEDS: Betamethasone/Clotrimazole Cream 15 gm Tube TP SCH (17:16)
[2017-06-30] MEDS: Ammonium Lactate Cream 140 gm Tube TP SCH (17:16)
--- NOTE | 2017-07-01 00:48 | Consultation ---
DATE OF CONSULTATION: 06/30/2017 INFECTIOUS DISEASE CONSULTATION REFERRING PHYSICIAN: Dr. Mcguire. REASON FOR CONSULTATION: Cellulitis of both lower extremities and abdomen. HISTORY OF PRESENT ILLNESS: The patient is a 72-year-old female with a past medical history of severe dementia, brain surgery, foot surgery, and CVA, brought in from nursing facility for swelling of both lower extremities with redness. The patient also has some redness of the lower abdominal fold. On initial evaluation, the patient was afebrile and WBC count was 11,000. The patient was started on vancomycin and Zosyn and ID consult was called for antibiotic management. PAST MEDICAL AND SURGICAL HISTORY: Includes dementia, brain surgery, CVA, and obesity. ALLERGIES: NKDA. MEDICATIONS: As per medication reconciliation sheet. Antibiotic bo, the patient is on vancomycin and Zosyn. FAMILY HISTORY: Not available. SOCIAL HISTORY: The patient has no history of smoking, alcohol, or drug use. REVIEW OF SYSTEMS: Unable to obtain. So far, the patient has no fever. The patient has swelling and redness of both lower extremities including lower leg, ankle, and foot. The patient also has redness and excoriation of the lower abdominal fold and groins. PHYSICAL EXAMINATION: VITAL SIGNS: Currently, temperature is 97.3, pulse 93, respirations 18, blood pressure 115/72, oxygen saturation 96%. GENERAL: The patient is comfortable, lying in the bed, obese. HEENT: Head is normocephalic and atraumatic. Oral cavity moist, pink tongue. Eyes: No pallor, no icterus. PERRLA. EOMI. NECK: Supple. No JVD, no carotid bruit. Trachea midline. CHEST: Bilateral breath sounds. No crackles or wheezing. HEART: S1, S2 within normal limits. Regular rhythm. No murmur, no gallop. ABDOMEN: Soft, nontender, nondistended. Bowel sounds present. The patient has redness and excoriation of the lower abdominal wall including abdominal fold and groins. EXTREMITIES: No cyanosis, no clubbing. The patient has nonpitting edema or swelling of both lower extremities with denudation of the skin as well as some fungal elements. NEUROLOGIC: Not communicating. LABORATORY DATA: Current lab shows WBC count is 11,000, hemoglobin is 14.1, hematocrit is 43.7, platelets are 401,000, neutrophils 68.7%. Sodium 140, potassium 4.3, chloride 106, bicarbonate is 26, BUN is 40, creatinine 1.1, and glucose is 80. IMPRESSION: 1. Bilateral lower extremity cellulitis and swelling, rule out deep vein thrombosis, rule out arterial insufficiency. 2. Abdominal wall cellulitis, secondary infection on Tinea cruris. 3. Obesity. 4. Cerebrovascular accident. RECOMMENDATIONS AND PLAN: We will continue vancomycin and Zosyn. We will apply some moisturizer cream like Lac-Hydrin cream and apply Lotrisone to groins and lower abdomen. Thank you Dr. Mcguire for involving me in taking care of this patient. JOB# [id number]
[2017-07-01] MEDS ORDERED: Vancomycin HCl 500 MG in Sodium Chloride 0.9% 100 ML IV ONE (08:45)
--- NOTE | 2017-07-01 08:48 | Diagnostic Imaging Report ---
EXAM: Doppler ultrasound examination of the lower extremities. HISTORY: DVT FINDINGS: Real-time ultrasound examination of lower extremities was performed utilizing color Doppler technique. The study demonstrates normal compressibility and augmentation of deep venous system throughout. IMPRESSION: No evidence for deep venous thrombosis lower extremities bilaterally.
--- NOTE | 2017-07-01 08:52 | Diagnostic Imaging Report ---
Exam: Portable chest x-ray HISTORY: Shortness of breath. Findings: Portable examination of the chest at 0831 hours reviewed the study compared to prior exam of the 01/06/2017. Findings: The study demonstrates a soft tissue density overlying right lung extending from right hilar area to the base. Previous CT examination of chest as well as the upper GI examination demonstrates a large hiatal hernia extending in the right lung base. Superimposed pneumonia cannot be excluded clinical correlation recommended. The left lung parenchyma is well aerated. The structures intact. The heart is not enlarged. 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 Superimposed pneumonia is difficult to exclude clinical correlation CT examination recommended if clinically indicated.
[2017-07-01] MEDS: Betamethasone/Clotrimazole Cream 15 gm Tube TP SCH (09:08)
[2017-07-01] MEDS: Ammonium Lactate Cream 140 gm Tube TP SCH ×2 (09:08→20:44)
--- NOTE | 2017-07-01 09:34 | Diagnostic Imaging Report ---
Bilateral lower extremity Doppler arterial ultrasound exam HISTORY: Swelling Sonographic sector images were obtained through the arterial systems of both legs. Associated Doppler data obtained. The exam of the right leg demonstrates monophasic waveforms within the common femoral, superficial femoral, popliteal, anterior tibial, posterior tibial, and dorsalis pedis arteries. Slight increase in velocity throughout the arterial system. The ankle-brachial index remains normal (1.18). Sonographic images demonstrate mild diffuse atherosclerotic changes. No significant focal narrowing or stenosis is sonographically identified. The exam of the left leg demonstrates monophasic waveforms throughout the arterial system. Increased velocity noted somewhat more pronounced in the posterior tibial artery region. The left ankle-brachial index normal (1.18). Sonographic images demonstrate mild diffuse atherosclerotic changes. No significant focal narrowing or stenosis is seen. IMPRESSION: 1. Abnormal Doppler waveforms bilaterally. Findings associated with a mild generalized increase in velocities through the upper the arterial system. However, no sonographic significant narrowing or stenosis is visualized. Exact significance of the Doppler findings is uncertain. A CT angiographic study may provide additional detail and assessment.
--- NOTE | 2017-07-01 11:47 | General Progress Note ---
Subjective - Review of Systems Events since last encounter: patient with swelling and redness of bilateral lower extremity in no distress Objective - Results Result Diagrams: 06/30/17 01:45 06/30/17 01:45 Recent Labs: Laboratory Last Values WBC 11.0 Th/cmm (4.8-10.8) H 06/30/17 01:45 RBC 5.12 Mil/cmm (3.80-5.20) 06/30/17 01:45 Hgb 14.1 gm/dL (12-16) 06/30/17 01:45 Hct 43.7 % (41.0-60) 06/30/17 01:45 MCV 85.3 fl (81-100) 06/30/17 01:45 MCH 27.5 pg (27.0-31.0) 06/30/17 01:45 MCHC Differential 32.2 pg (28.0-36.0) 06/30/17 01:45 RDW 14.3 % (11.5-20.0) 06/30/17 01:45 Plt Count 401 Th/cmm (150-400) H D 06/30/17 01:45 MPV 8.8 fl 06/30/17 01:45 Neutrophils % 68.7 % (40.0-80.0) 06/30/17 01:45 Lymphocytes % 21.5 % (20.0-50.0) 06/30/17 01:45 Monocytes % 4.2 % (2.0-10.0) 06/30/17 01:45 Eosinophils % 3.0 % (0.0-5.0) 06/30/17 01:45 Basophils % 2.6 % (0.0-2.0) H 06/30/17 01:45 Sodium 140 mEq/L (136-145) 06/30/17 01:45 Potassium 4.3 mEq/L (3.5-5.1) 06/30/17 01:45 Chloride 106 mEq/L (98-107) 06/30/17 01:45 Carbon Dioxide 25.9 mEq/L (21.0-31.0) 06/30/17 01:45 Anion Gap 12.4 (7.0-16.0) 06/30/17 01:45 BUN 40 mg/dL (7-25) H 06/30/17 01:45 Creatinine 1.1 mg/dL (0.6-1.2) 06/30/17 01:45 Est GFR ( Amer) TNP 06/30/17 01:45 Est GFR (Non-Af Amer) TNP 06/30/17 01:45 BUN/Creatinine Ratio 36.4 06/30/17 01:45 Glucose 80 mg/dL (70-105) 06/30/17 01:45 POC Glucose 94 MG/DL (70 - 105) 06/30/17 07:24 Calcium 10.6 mg/dL (8.6-10.3) H 06/30/17 01:45 Total Bilirubin 0.3 mg/dL (0.3-1.0) 06/30/17 01:45 AST 15 U/L (13-39) 06/30/17 01:45 ALT 15 U/L (7-52) 06/30/17 01:45 Alkaline Phosphatase 104 U/L (34-104) 06/30/17 01:45 Total Protein 8.7 gm/dL (6.0-8.3) H 06/30/17 01:45 Albumin 4.0 gm/dL (3.7-5.3) 06/30/17 01:45 Globulin 4.7 gm/dL 06/30/17 01:45 Albumin/Globulin Ratio 0.9 (1.0-1.8) L 06/30/17 01:45 - Physical Exam Vitals and I&O: Vital Signs Temp 97.9 F 07/01/17 08:22 Pulse 94 07/01/17 08:22 Resp 18 07/01/17 08:22 BP 110/60 07/01/17 08:22 Pulse Ox 97 07/01/17 08:22 Intake & Output 06/30/17 07/01/17 07/01/17 18:59 06:59 18:59 Intake Total 450 450 200 Balance 450 450 200 Weight (lbs) 96.615 kg Intake: Intake, IV Amount 450 200 Piperacillin Sodium/ 200 100 Tazobact 4.5 gm In Sodium Chloride 0.9% 100 ml @ 100 mls/hr IV Q8HR [facility] Rx #:[id number] Vancomycin HCl 1.25 gm In 250 Sodium Chloride 0.9% 250 ml @ 165 mls/hr IV Q24H [facility] Rx#:[id number] Vancomycin HCl 500 mg In 100 Sodium Chloride 0.9% 100 ml @ 100 mls/hr IV ONCE ONE Rx#:[id number] Oral 450 Other: # Voids 2 # Bowel Movements 0 Active Medications: Current Medications Betamethasone/Clotrimazole (Lotrisone Cream) 1 appl TP Q12HR [facility] Stop: 08/30/17 20:59 Piperacillin Sod/Tazobactam (Sod 4.5 gm/ Sodium Chloride) 100 mls @ 100 mls/hr IV Q8HR [facility] Stop: 08/29/17 12:59 Last Infusion: 07/01/17 07:00 Dose: Infused Vancomycin HCl 1.25 gm/ Sodium (Chloride) 250 mls @ 165 mls/hr IV Q24H [facility] Stop: 08/31/17 08:59 Lactic Acid (Lac-Hydrin Cream) 1 appl TP Q12HR [facility] Stop: 08/30/17 20:59 Miscellaneous (Vancomycin Iv Per Pharmacy) 1 [facility] PRN PRN PRN Reason: PROTOCOL Stop: 08/29/17 03:35 Miscellaneous (Zosyn Iv Per Pharmacy) 1 [facility] PRN PRN PRN Reason: PROTOCOL Stop: 08/29/17 03:35 Miscellaneous (Vte Chemical Prophylaxis Screen/ Admission) 1 [facility] PRN PRN PRN Reason: PROTOCOL Stop: 08/29/17 11:16 Morphine Sulfate (Morphine) 1 mg IV Q4H PRN PRN Reason: Pain (Moderate) Stop: 08/29/17 03:44 Morphine Sulfate (Morphine) 2 mg IV Q4H PRN PRN Reason: Pain (Severe) Stop: 08/29/17 03:44 Ondansetron HCl (Zofran) 4 mg IV Q4H PRN PRN Reason: Nausea Stop: 08/29/17 03:44 - Procedures Procedures: Procedures Procedure Code Date INSERTION OF INFUSION DEV INTO SUP VENA CAVA, PERC APPROACH [id number] 01/06/17 Nutritional Asmnt/Malnutr-PDOC - Dietary Evaluation Malnutrition Findings (Please click <Entered> for more info): Nutritional Asmnt/Malnutrition Start: 06/30/17 09: 06 Text: Status: Complete Freq: Document 06/30/17 09:14 [email or web address] (Rec: 06/30/17 09:25 [email or web address]) Nutritional Asmnt/Malnutrition Patient General Information Nutritional Screening Consult Diagnosis bilateral lower extremity cellulitis Pertinent Medical Hx/Surgical Hx brain surgery, foot surgery, CVA Subjective Information Pt sleeping during visit. Mumbled somewhat in her sleep, but did not awaken to name being called multiple times. No PO intake recorded since admit (only 1 meal served). Current Diet Order/ Nutrition Support regular Patient / S.O Not Indicated Pertinent Medications reviewed Pertinent Labs BUN: 40 Nutritional Hx/Data Height 1.68 m Height (Calculated Centimeters) 167.6 Current Weight (lbs) 96.615 kg Weight (Calculated Kilograms) 96.6 Weight (Calculated Grams) 71922.2 [place] Body Weight 130 lbs % [place] Body Weight 128 Body Mass Index (BMI) 34.3 Weight Status Obese GI Symptoms GI Symptoms None Last BM none since admit (<1 day) Difficult in: None Food Allergies No Usual diet at home unable to assess Skin Integrity/Comment: intact, cellulitis, nonpitting edema to BLE Estimated Nutritional Goals BEE in Kcals: Adj wt of IBW Calories/Kcals/Kg 25-30 Kcals Calculated 1097-0203 Protein: Adj wt of IBW Protein g/k.8-1 Protein Calculated 55-69 Fluid: ml 4355-3737 mL (1 ml/kcal) Nutritional Problem 1. Problem Problem inadequate oral intake Etiology sleepiness Signs/Symptoms: no recorded PO intake since admit Intervention/Recommendation Comments 1. Continue regular diet, if PO intake consistently <50% then recommend add supplement Expected Outcomes/Goals Expected Outcomes/Goals goal: PO intake >50% monitor wt, labs, skin, PO intake
--- NOTE | 2017-07-01 14:00 | Infectious Disease Prog Note ---
Infectious Disease Subjective - Review of Systems Service Date: 07/01/17 Subjective: No new change, no fever. Infectious Disease Objective - Results Result Diagrams: 06/30/17 01:45 06/30/17 01:45 Recent Labs: Laboratory Last Values WBC 11.0 Th/cmm (4.8-10.8) H 06/30/17 01:45 RBC 5.12 Mil/cmm (3.80-5.20) 06/30/17 01:45 Hgb 14.1 gm/dL (12-16) 06/30/17 01:45 Hct 43.7 % (41.0-60) 06/30/17 01:45 MCV 85.3 fl (81-100) 06/30/17 01:45 MCH 27.5 pg (27.0-31.0) 06/30/17 01:45 MCHC Differential 32.2 pg (28.0-36.0) 06/30/17 01:45 RDW 14.3 % (11.5-20.0) 06/30/17 01:45 Plt Count 401 Th/cmm (150-400) H D 06/30/17 01:45 MPV 8.8 fl 06/30/17 01:45 Neutrophils % 68.7 % (40.0-80.0) 06/30/17 01:45 Lymphocytes % 21.5 % (20.0-50.0) 06/30/17 01:45 Monocytes % 4.2 % (2.0-10.0) 06/30/17 01:45 Eosinophils % 3.0 % (0.0-5.0) 06/30/17 01:45 Basophils % 2.6 % (0.0-2.0) H 06/30/17 01:45 Sodium 140 mEq/L (136-145) 06/30/17 01:45 Potassium 4.3 mEq/L (3.5-5.1) 06/30/17 01:45 Chloride 106 mEq/L (98-107) 06/30/17 01:45 Carbon Dioxide 25.9 mEq/L (21.0-31.0) 06/30/17 01:45 Anion Gap 12.4 (7.0-16.0) 06/30/17 01:45 BUN 40 mg/dL (7-25) H 06/30/17 01:45 Creatinine 1.1 mg/dL (0.6-1.2) 06/30/17 01:45 Est GFR ( Amer) TNP 06/30/17 01:45 Est GFR (Non-Af Amer) TNP 06/30/17 01:45 BUN/Creatinine Ratio 36.4 06/30/17 01:45 Glucose 80 mg/dL (70-105) 06/30/17 01:45 POC Glucose 94 MG/DL (70 - 105) 06/30/17 07:24 Calcium 10.6 mg/dL (8.6-10.3) H 06/30/17 01:45 Total Bilirubin 0.3 mg/dL (0.3-1.0) 06/30/17 01:45 AST 15 U/L (13-39) 06/30/17 01:45 ALT 15 U/L (7-52) 06/30/17 01:45 Alkaline Phosphatase 104 U/L (34-104) 06/30/17 01:45 Total Protein 8.7 gm/dL (6.0-8.3) H 06/30/17 01:45 Albumin 4.0 gm/dL (3.7-5.3) 06/30/17 01:45 Globulin 4.7 gm/dL 06/30/17 01:45 Albumin/Globulin Ratio 0.9 (1.0-1.8) L 06/30/17 01:45 - Physical Exam Vitals and I&O: Vital Signs Temp 97.4 F 07/01/17 12:00 Pulse 80 07/01/17 12:00 Resp 18 07/01/17 12:00 BP 130/73 07/01/17 12:00 Pulse Ox 91 07/01/17 12:00 Intake & Output 06/30/17 07/01/17 07/01/17 18:59 06:59 18:59 Intake Total 450 450 200 Balance 450 450 200 Weight (lbs) 96.615 kg Intake: Intake, IV Amount 450 200 Piperacillin Sodium/ 200 100 Tazobact 4.5 gm In Sodium Chloride 0.9% 100 ml @ 100 mls/hr IV Q8HR [facility] Rx #:[id number] Vancomycin HCl 1.25 gm In 250 Sodium Chloride 0.9% 250 ml @ 165 mls/hr IV Q24H [facility] Rx#:[id number] Vancomycin HCl 500 mg In 100 Sodium Chloride 0.9% 100 ml @ 100 mls/hr IV ONCE ONE Rx#:[id number] Oral 450 Other: # Voids 2 # Bowel Movements 0 Active Medications: Current Medications Betamethasone/Clotrimazole (Lotrisone Cream) 1 appl TP Q12HR [facility] Stop: 08/30/17 20:59 Piperacillin Sod/Tazobactam (Sod 4.5 gm/ Sodium Chloride) 100 mls @ 100 mls/hr IV Q8HR [facility] Stop: 08/29/17 12:59 Last Admin: 07/01/17 13:24 Dose: 100 mls/hr Vancomycin HCl 1.25 gm/ Sodium (Chloride) 250 mls @ 165 mls/hr IV Q24H [facility] Stop: 08/31/17 08:59 Lactic Acid (Lac-Hydrin Cream) 1 appl TP Q12HR [facility] Stop: 08/30/17 20:59 Miscellaneous (Vancomycin Iv Per Pharmacy) 1 [facility] PRN PRN PRN Reason: PROTOCOL Stop: 08/29/17 03:35 Miscellaneous (Zosyn Iv Per Pharmacy) 1 [facility] PRN PRN PRN Reason: PROTOCOL Stop: 08/29/17 03:35 Miscellaneous (Vte Chemical Prophylaxis Screen/ Admission) 1 [facility] PRN PRN PRN Reason: PROTOCOL Stop: 08/29/17 11:16 Morphine Sulfate (Morphine) 1 mg IV Q4H PRN PRN Reason: Pain (Moderate) Stop: 08/29/17 03:44 Morphine Sulfate (Morphine) 2 mg IV Q4H PRN PRN Reason: Pain (Severe) Stop: 08/29/17 03:44 Ondansetron HCl (Zofran) 4 mg IV Q4H PRN PRN Reason: Nausea Stop: 08/29/17 03:44 General: no acute distress, well developed, well nourished, other (obese) HEENT: atraumatic, normocephalic, PERRLA, EOMI, moist mucous membrane Neck: supple, no thyromegaly Cardiovascular: S1S2, regular Lungs: clear to auscultation bilaterally, clear to percussion Abdomen: soft, no tender, no distended Extremities: no cyanosis, no clubbing, no edema Neurological: awake, alert, oriented - Procedures Procedures: Procedures Procedure Code Date INSERTION OF INFUSION DEV INTO SUP VENA CAVA, PERC APPROACH [id number] 01/06/17 Infectious Disease Assmt/Plan - Assessment Assessment: 1. Bilateral lower extremity cellulitis and swelling, rule out deep vein thrombosis, rule out arterial insufficiency. 2. Abdominal wall cellulitis, secondary infection on Tinea cruris. 3. Obesity. 4. Cerebrovascular accident. - Plan Plan: Continue vancomycin and Zosyn. We will apply some moisturizer cream like Lac-Hydrin cream and apply Lotrisone to groins and lower abdomen. Nutritional Asmnt/Malnutr-PDOC - Dietary Evaluation Malnutrition Findings (Please click <Entered> for more info): Nutritional Asmnt/Malnutrition Start: 06/30/17 09: 06 Text: Status: Complete Freq: Document 06/30/17 09:14 [email or web address] (Rec: 06/30/17 09:25 [email or web address]) Nutritional Asmnt/Malnutrition Patient General Information Nutritional Screening Consult Diagnosis bilateral lower extremity cellulitis Pertinent Medical Hx/Surgical Hx brain surgery, foot surgery, CVA Subjective Information Pt sleeping during visit. Mumbled somewhat in her sleep, but did not awaken to name being called multiple times. No PO intake recorded since admit (only 1 meal served). Current Diet Order/ Nutrition Support regular Patient / S.O Not Indicated Pertinent Medications reviewed Pertinent Labs BUN: 40 Nutritional Hx/Data Height 1.68 m Height (Calculated Centimeters) 167.6 Current Weight (lbs) 96.615 kg Weight (Calculated Kilograms) 96.6 Weight (Calculated Grams) 39784.2 [place] Body Weight 130 lbs % [place] Body Weight 128 Body Mass Index (BMI) 34.3 Weight Status Obese GI Symptoms GI Symptoms None Last BM none since admit (<1 day) Difficult in: None Food Allergies No Usual diet at home unable to assess Skin Integrity/Comment: intact, cellulitis, nonpitting edema to BLE Estimated Nutritional Goals BEE in Kcals: Adj wt of IBW Calories/Kcals/Kg 25-30 Kcals Calculated 7137-3962 Protein: Adj wt of IBW Protein g/k.8-1 Protein Calculated 55-69 Fluid: ml 2470-6473 mL (1 ml/kcal) Nutritional Problem 1. Problem Problem inadequate oral intake Etiology sleepiness Signs/Symptoms: no recorded PO intake since admit Intervention/Recommendation Comments 1. Continue regular diet, if PO intake consistently <50% then recommend add supplement Expected Outcomes/Goals Expected Outcomes/Goals goal: PO intake >50% monitor wt, labs, skin, PO intake
[2017-07-01 18:32] LABS: URINE MICROSCOPIC INDICATED? YES; URINE SOURCE CATH
[2017-07-01 18:34] LABS: URINE BILIRUBIN NEGATIVE (NEGATIVE); URINE BLOOD TRACE (NEGATIVE); URINE GLUCOSE (UA) NEGATIVE (NEGATIVE); URINE KETONE NEGATIVE (NEGATIVE); URINE LEUKOCYTE ESTERASE NEGATIVE (NEGATIVE); URINE NITRATE NEGATIVE (NEGATIVE); URINE PH 6.5 (4.6 - 8.0); URINE PROTEIN NEGATIVE (NEGATIVE); URINE UROBILINOGEN 0.2 E.U./dL (0.2 - 1.0)
[2017-07-01 19:04] LABS: URINE CLARITY HAZY (CLEAR); URINE COLOR YELLOW
[2017-07-01 19:06] LABS: URINE BACTERIA FEW /hpf (NONE SEEN); URINE EPITHELIAL CELLS FEW /lpf (FEW); URINE WBC 0-2 /hpf (0-5)
[2017-07-01] MEDS: NYSTATIN 100000 UNITS/GM POWD TP SCH (20:50)
[2017-07-01] MEDS ORDERED: NYSTATIN 100000 UNITS/GM POWD TP SCH (21:00)
[2017-07-01] MEDS ORDERED: Betamethasone/Clotrimazole Cream 15 gm Tube TP SCH (21:00)
[2017-07-02 08:00] LABS: % BASOPHILS 0.2 % (0.0-2.0); % EOSINOPHILS 2.7 % (0.0-5.0); % LYMPHOCYTES 22.6 % (20.0-50.0); % MONOCYTES 6.5 % (2.0-10.0); EOSINOPHILE ABSOLUTE 0.2 Th/cmm (0.1-0.4); HEMOGLOBIN 11.8 gm/dL (12-16); LYMPHOCYTE ABSOLUTE 1.9 Th/cmm (1.5-3.0); MEAN CELL VOLUME 84.8 fl (81-100); MEAN CORPUSCULAR HEMOGLOBIN 28.3 pg (27.0-31.0); MEAN CORPUSCULAR HGB CONC 33.3 pg (28.0-36.0); MEAN PLATELET VOLUME 8.6 fl; MONOCYTE ABSOLUTE 0.6 Th/cmm (0.3-1.0); NEUTROPHILE ABSOLUTE 5.8 Th/cmm (1.8-8.0); PLATELET COUNT 333 Th/cmm (150-400); RED BLOOD COUNT 4.19 Mil/cmm (3.80-5.20)
[2017-07-02 08:05] LABS: HEMATOCRIT 35.5 % (41.0-60); WHITE BLOOD COUNT 8.5 Th/cmm (4.8-10.8)
[2017-07-02 08:38] LABS: ANION GAP 8.4 (7.0-16.0); BUN - UREA NITROGEN 19 mg/dL (7-25); CALCIUM SERUM 9.2 mg/dL (8.6-10.3); CARBON DIOXIDE 26.7 mEq/L (21.0-31.0); CHLORIDE 109 mEq/L (98-107); CREATININE - SERUM 0.9 mg/dL (0.6-1.2); GLUCOSE 100 mg/dL (70-105); POTASSIUM SERUM 4.1 mEq/L (3.5-5.1); SODIUM SERUM 140 mEq/L (136-145)
[2017-07-02] MEDS: Ammonium Lactate Cream 140 gm Tube TP SCH ×2 (09:50→21:00)
[2017-07-02] MEDS: NYSTATIN 100000 UNITS/GM POWD TP SCH ×2 (09:51→21:04)
--- NOTE | 2017-07-02 14:58 | Infectious Disease Prog Note ---
Infectious Disease Subjective - Review of Systems Service Date: 07/02/17 Subjective: No new change, no fever. Infectious Disease Objective - Results Result Diagrams: 07/02/17 07:45 07/02/17 07:45 Recent Labs: Laboratory Last Values WBC 8.5 Th/cmm (4.8-10.8) D 07/02/17 07:45 RBC 4.19 Mil/cmm (3.80-5.20) 07/02/17 07:45 Hgb 11.8 gm/dL (12-16) L 07/02/17 07:45 Hct 35.5 % (41.0-60) L D 07/02/17 07:45 MCV 84.8 fl (81-100) 07/02/17 07:45 MCH 28.3 pg (27.0-31.0) 07/02/17 07:45 MCHC Differential 33.3 pg (28.0-36.0) 07/02/17 07:45 RDW 14.0 % (11.5-20.0) 07/02/17 07:45 Plt Count 333 Th/cmm (150-400) 07/02/17 07:45 MPV 8.6 fl 07/02/17 07:45 Neutrophils % 68.0 % (40.0-80.0) 07/02/17 07:45 Lymphocytes % 22.6 % (20.0-50.0) 07/02/17 07:45 Monocytes % 6.5 % (2.0-10.0) 07/02/17 07:45 Eosinophils % 2.7 % (0.0-5.0) 07/02/17 07:45 Basophils % 0.2 % (0.0-2.0) 07/02/17 07:45 Sodium 140 mEq/L (136-145) 07/02/17 07:45 Potassium 4.1 mEq/L (3.5-5.1) 07/02/17 07:45 Chloride 109 mEq/L (98-107) H 07/02/17 07:45 Carbon Dioxide 26.7 mEq/L (21.0-31.0) 07/02/17 07:45 Anion Gap 8.4 (7.0-16.0) 07/02/17 07:45 BUN 19 mg/dL (7-25) 07/02/17 07:45 Creatinine 0.9 mg/dL (0.6-1.2) 07/02/17 07:45 Est GFR ( Amer) TNP 07/02/17 07:45 Est GFR (Non-Af Amer) TNP 07/02/17 07:45 BUN/Creatinine Ratio 21.1 07/02/17 07:45 Glucose 100 mg/dL (70-105) 07/02/17 07:45 POC Glucose 94 MG/DL (70 - 105) 06/30/17 07:24 Calcium 9.2 mg/dL (8.6-10.3) 07/02/17 07:45 Total Bilirubin 0.3 mg/dL (0.3-1.0) 06/30/17 01:45 AST 15 U/L (13-39) 06/30/17 01:45 ALT 15 U/L (7-52) 06/30/17 01:45 Alkaline Phosphatase 104 U/L (34-104) 06/30/17 01:45 Total Protein 8.7 gm/dL (6.0-8.3) H 06/30/17 01:45 Albumin 4.0 gm/dL (3.7-5.3) 06/30/17 01:45 Globulin 4.7 gm/dL 06/30/17 01:45 Albumin/Globulin Ratio 0.9 (1.0-1.8) L 06/30/17 01:45 Urine Source CATH 07/01/17 18:15 Urine Color YELLOW 07/01/17 18:15 Urine Clarity HAZY (CLEAR) 07/01/17 18:15 Urine pH 6.5 (4.6 - 8.0) 07/01/17 18:15 Ur Specific [place] 1.010 (1.005-1.030) 07/01/17 18:15 Urine Protein NEGATIVE mg/dL (NEGATIVE) 07/01/17 18:15 Urine Glucose (UA) NEGATIVE mg/dL (NEGATIVE) 07/01/17 18:15 Urine Ketones NEGATIVE mg/dL (NEGATIVE) 07/01/17 18:15 Urine Blood TRACE (NEGATIVE) 07/01/17 18:15 Urine Nitrate NEGATIVE (NEGATIVE) 07/01/17 18:15 Urine Bilirubin NEGATIVE (NEGATIVE) 07/01/17 18:15 Urine Urobilinogen 0.2 E.U./dL (0.2 - 1.0) 07/01/17 18:15 Ur Leukocyte Esterase NEGATIVE (NEGATIVE) 07/01/17 18:15 Urine RBC 2-5 /hpf (0-5) 07/01/17 18:15 Urine WBC 0-2 /hpf (0-5) 07/01/17 18:15 Ur Epithelial Cells FEW /lpf (FEW) 07/01/17 18:15 Urine Bacteria FEW /hpf (NONE SEEN) 07/01/17 18:15 Vancomycin Trough 9.6 ug/mL (10-20) L 07/02/17 07:45 - Physical Exam Vitals and I&O: Vital Signs Temp 97.4 F 07/02/17 11:56 Pulse 89 07/02/17 11:56 Resp 18 07/02/17 11:56 BP 139/68 07/02/17 11:56 Pulse Ox 92 07/02/17 11:56 Intake & Output 07/01/17 07/02/17 07/02/17 18:59 06:59 18:59 Intake Total 1320 200 250 Output Total 150 Balance 1170 200 250 Weight (lbs) 96.615 kg 98.974 kg Intake: Intake, IV Amount 300 200 250 Piperacillin Sodium/ 200 200 Tazobact 4.5 gm In Sodium Chloride 0.9% 100 ml @ 100 mls/hr IV Q8HR [facility] Rx #:[id number] Vancomycin HCl 1.25 gm In 250 Sodium Chloride 0.9% 250 ml @ 165 mls/hr IV Q24H [facility] Rx#:[id number] Vancomycin HCl 500 mg In 100 Sodium Chloride 0.9% 100 ml @ 100 mls/hr IV ONCE ONE Rx#:[id number] Oral 1020 Output: Urine 150 Other: # Voids 4 2 # Bowel Movements 0 0 Active Medications: Current Medications Piperacillin Sod/Tazobactam (Sod 4.5 gm/ Sodium Chloride) 100 mls @ 100 mls/hr IV Q8HR [facility] Stop: 08/29/17 12:59 Last Admin: 07/02/17 13:59 Dose: 100 mls/hr Vancomycin HCl 1.25 gm/ Sodium (Chloride) 250 mls @ 165 mls/hr IV Q24H [facility] Stop: 08/31/17 08:59 Last Infusion: 07/02/17 11:54 Dose: Infused Lactic Acid (Lac-Hydrin Cream) 1 appl TP Q12HR [facility] Stop: 08/30/17 20:59 Last Admin: 07/02/17 09:50 Dose: 1 appl Miscellaneous (Vancomycin Iv Per Pharmacy) 1 [facility] PRN PRN PRN Reason: PROTOCOL Stop: 08/29/17 03:35 Miscellaneous (Zosyn Iv Per Pharmacy) 1 [facility] PRN PRN PRN Reason: PROTOCOL Stop: 08/29/17 03:35 Miscellaneous (Vte Chemical Prophylaxis Screen/ Admission) 1 [facility] PRN PRN PRN Reason: PROTOCOL Stop: 08/29/17 11:16 Morphine Sulfate (Morphine) 1 mg IV Q4H PRN PRN Reason: Pain (Moderate) Stop: 08/29/17 03:44 Morphine Sulfate (Morphine) 2 mg IV Q4H PRN PRN Reason: Pain (Severe) Stop: 08/29/17 03:44 Mupirocin (Bactroban Oint) 1 appl TP Q12HR [facility] Stop: 07/06/17 20:59 Last Admin: 07/02/17 09:51 Dose: 1 appl Nystatin (Nystop) 0 units TP Q12HR [facility] Stop: 08/30/17 20:59 Last Admin: 07/02/17 09:51 Dose: 100 units Ondansetron HCl (Zofran) 4 mg IV Q4H PRN PRN Reason: Nausea Stop: 08/29/17 03:44 General: no acute distress, well developed, well nourished HEENT: atraumatic, normocephalic Neck: supple, no thyromegaly Cardiovascular: S1S2, regular, systolic murmur Lungs: clear to auscultation bilaterally, clear to percussion, crackles Abdomen: soft, no tender, no distended, no hepatomegaly Extremities: other (bl leg redness with flacking of the skin.), no cyanosis, no clubbing, no edema Neurological: awake, alert Skin: other (lower abdomina lfold had erythema.) - Procedures Procedures: Procedures Procedure Code Date INSERTION OF INFUSION DEV INTO SUP VENA CAVA, PERC APPROACH [id number] 01/06/17 Infectious Disease Assmt/Plan - Assessment Assessment: 1. Bilateral lower extremity cellulitis and swelling, rule out deep vein thrombosis, rule out arterial insufficiency. 2. Abdominal wall cellulitis, secondary infection on Tinea cruris. 3. Obesity. 4. Cerebrovascular accident. 5. Tinea Cruris. - Plan Plan: Continue vancomycin and Zosyn. We will apply some moisturizer cream like Lac-Hydrin cream and apply Lotrisone to groins and lower abdomen. Nutritional Asmnt/Malnutr-PDOC - Dietary Evaluation Malnutrition Findings (Please click <Entered> for more info): Nutritional Asmnt/Malnutrition Start: 06/30/17 09: 06 Text: Status: Complete Freq: Document 06/30/17 09:14 [email or web address] (Rec: 06/30/17 09:25 [email or web address]) Nutritional Asmnt/Malnutrition Patient General Information Nutritional Screening Consult Diagnosis bilateral lower extremity cellulitis Pertinent Medical Hx/Surgical Hx brain surgery, foot surgery, CVA Subjective Information Pt sleeping during visit. Mumbled somewhat in her sleep, but did not awaken to name being called multiple times. No PO intake recorded since admit (only 1 meal served). Current Diet Order/ Nutrition Support regular Patient / S.O Not Indicated Pertinent Medications reviewed Pertinent Labs BUN: 40 Nutritional Hx/Data Height 1.68 m Height (Calculated Centimeters) 167.6 Current Weight (lbs) 96.615 kg Weight (Calculated Kilograms) 96.6 Weight (Calculated Grams) 11735.2 [place] Body Weight 130 lbs % [place] Body Weight 128 Body Mass Index (BMI) 34.3 Weight Status Obese GI Symptoms GI Symptoms None Last BM none since admit (<1 day) Difficult in: None Food Allergies No Usual diet at home unable to assess Skin Integrity/Comment: intact, cellulitis, nonpitting edema to BLE Estimated Nutritional Goals BEE in Kcals: Adj wt of IBW Calories/Kcals/Kg 25-30 Kcals Calculated 3786-8337 Protein: Adj wt of IBW Protein g/k.8-1 Protein Calculated 55-69 Fluid: ml 8593-0145 mL (1 ml/kcal) Nutritional Problem 1. Problem Problem inadequate oral intake Etiology sleepiness Signs/Symptoms: no recorded PO intake since admit Intervention/Recommendation Comments 1. Continue regular diet, if PO intake consistently <50% then recommend add supplement Expected Outcomes/Goals Expected Outcomes/Goals goal: PO intake >50% monitor wt, labs, skin, PO intake
--- NOTE | 2017-07-02 16:22 | General Progress Note ---
Subjective - Review of Systems Events since last encounter: no fever no distress Objective - Results Result Diagrams: 07/02/17 07:45 07/02/17 07:45 Recent Labs: Laboratory Last Values WBC 8.5 Th/cmm (4.8-10.8) D 07/02/17 07:45 RBC 4.19 Mil/cmm (3.80-5.20) 07/02/17 07:45 Hgb 11.8 gm/dL (12-16) L 07/02/17 07:45 Hct 35.5 % (41.0-60) L D 07/02/17 07:45 MCV 84.8 fl (81-100) 07/02/17 07:45 MCH 28.3 pg (27.0-31.0) 07/02/17 07:45 MCHC Differential 33.3 pg (28.0-36.0) 07/02/17 07:45 RDW 14.0 % (11.5-20.0) 07/02/17 07:45 Plt Count 333 Th/cmm (150-400) 07/02/17 07:45 MPV 8.6 fl 07/02/17 07:45 Neutrophils % 68.0 % (40.0-80.0) 07/02/17 07:45 Lymphocytes % 22.6 % (20.0-50.0) 07/02/17 07:45 Monocytes % 6.5 % (2.0-10.0) 07/02/17 07:45 Eosinophils % 2.7 % (0.0-5.0) 07/02/17 07:45 Basophils % 0.2 % (0.0-2.0) 07/02/17 07:45 Sodium 140 mEq/L (136-145) 07/02/17 07:45 Potassium 4.1 mEq/L (3.5-5.1) 07/02/17 07:45 Chloride 109 mEq/L (98-107) H 07/02/17 07:45 Carbon Dioxide 26.7 mEq/L (21.0-31.0) 07/02/17 07:45 Anion Gap 8.4 (7.0-16.0) 07/02/17 07:45 BUN 19 mg/dL (7-25) 07/02/17 07:45 Creatinine 0.9 mg/dL (0.6-1.2) 07/02/17 07:45 Est GFR ( Amer) TNP 07/02/17 07:45 Est GFR (Non-Af Amer) TNP 07/02/17 07:45 BUN/Creatinine Ratio 21.1 07/02/17 07:45 Glucose 100 mg/dL (70-105) 07/02/17 07:45 POC Glucose 94 MG/DL (70 - 105) 06/30/17 07:24 Calcium 9.2 mg/dL (8.6-10.3) 07/02/17 07:45 Total Bilirubin 0.3 mg/dL (0.3-1.0) 06/30/17 01:45 AST 15 U/L (13-39) 06/30/17 01:45 ALT 15 U/L (7-52) 06/30/17 01:45 Alkaline Phosphatase 104 U/L (34-104) 06/30/17 01:45 Total Protein 8.7 gm/dL (6.0-8.3) H 06/30/17 01:45 Albumin 4.0 gm/dL (3.7-5.3) 06/30/17 01:45 Globulin 4.7 gm/dL 06/30/17 01:45 Albumin/Globulin Ratio 0.9 (1.0-1.8) L 06/30/17 01:45 Urine Source CATH 07/01/17 18:15 Urine Color YELLOW 07/01/17 18:15 Urine Clarity HAZY (CLEAR) 07/01/17 18:15 Urine pH 6.5 (4.6 - 8.0) 07/01/17 18:15 Ur Specific [place] 1.010 (1.005-1.030) 07/01/17 18:15 Urine Protein NEGATIVE mg/dL (NEGATIVE) 07/01/17 18:15 Urine Glucose (UA) NEGATIVE mg/dL (NEGATIVE) 07/01/17 18:15 Urine Ketones NEGATIVE mg/dL (NEGATIVE) 07/01/17 18:15 Urine Blood TRACE (NEGATIVE) 07/01/17 18:15 Urine Nitrate NEGATIVE (NEGATIVE) 07/01/17 18:15 Urine Bilirubin NEGATIVE (NEGATIVE) 07/01/17 18:15 Urine Urobilinogen 0.2 E.U./dL (0.2 - 1.0) 07/01/17 18:15 Ur Leukocyte Esterase NEGATIVE (NEGATIVE) 07/01/17 18:15 Urine RBC 2-5 /hpf (0-5) 07/01/17 18:15 Urine WBC 0-2 /hpf (0-5) 07/01/17 18:15 Ur Epithelial Cells FEW /lpf (FEW) 07/01/17 18:15 Urine Bacteria FEW /hpf (NONE SEEN) 07/01/17 18:15 Vancomycin Trough 9.6 ug/mL (10-20) L 07/02/17 07:45 - Physical Exam Vitals and I&O: Vital Signs Temp 97.4 F 07/02/17 11:56 Pulse 89 07/02/17 11:56 Resp 18 07/02/17 11:56 BP 139/68 07/02/17 11:56 Pulse Ox 92 07/02/17 11:56 Intake & Output 07/01/17 07/02/17 07/02/17 18:59 06:59 18:59 Intake Total 1320 200 350 Output Total 150 Balance 1170 200 350 Weight (lbs) 96.615 kg 98.974 kg Intake: Intake, IV Amount 300 200 350 Piperacillin Sodium/ 200 200 100 Tazobact 4.5 gm In Sodium Chloride 0.9% 100 ml @ 100 mls/hr IV Q8HR [facility] Rx #:[id number] Vancomycin HCl 1.25 gm In 250 Sodium Chloride 0.9% 250 ml @ 165 mls/hr IV Q24H [facility] Rx#:[id number] Vancomycin HCl 500 mg In 100 Sodium Chloride 0.9% 100 ml @ 100 mls/hr IV ONCE ONE Rx#:[id number] Oral 1020 Output: Urine 150 Other: # Voids 4 2 # Bowel Movements 0 0 Active Medications: Current Medications Piperacillin Sod/Tazobactam (Sod 4.5 gm/ Sodium Chloride) 100 mls @ 100 mls/hr IV Q8HR [facility] Stop: 08/29/17 12:59 Last Infusion: 07/02/17 15:11 Dose: Infused Vancomycin HCl 1.25 gm/ Sodium (Chloride) 250 mls @ 165 mls/hr IV Q24H [facility] Stop: 08/31/17 08:59 Last Infusion: 07/02/17 11:54 Dose: Infused Lactic Acid (Lac-Hydrin Cream) 1 appl TP Q12HR [facility] Stop: 08/30/17 20:59 Last Admin: 07/02/17 09:50 Dose: 1 appl Miscellaneous (Vancomycin Iv Per Pharmacy) 1 ea [facility] PRN PRN PRN Reason: PROTOCOL Stop: 08/29/17 03:35 Miscellaneous (Zosyn Iv Per Pharmacy) 1 ea [facility] PRN PRN PRN Reason: PROTOCOL Stop: 08/29/17 03:35 Miscellaneous (Vte Chemical Prophylaxis Screen/ Admission) 1 ea [facility] PRN PRN PRN Reason: PROTOCOL Stop: 08/29/17 11:16 Morphine Sulfate (Morphine) 1 mg IV Q4H PRN PRN Reason: Pain (Moderate) Stop: 08/29/17 03:44 Morphine Sulfate (Morphine) 2 mg IV Q4H PRN PRN Reason: Pain (Severe) Stop: 08/29/17 03:44 Mupirocin (Bactroban Oint) 1 appl TP Q12HR [facility] Stop: 07/06/17 20:59 Last Admin: 07/02/17 09:51 Dose: 1 appl Nystatin (Nystop) 0 units TP Q12HR [facility] Stop: 08/30/17 20:59 Last Admin: 07/02/17 09:51 Dose: 100 units Ondansetron HCl (Zofran) 4 mg IV Q4H PRN PRN Reason: Nausea Stop: 08/29/17 03:44 - Procedures Procedures: Procedures Procedure Code Date INSERTION OF INFUSION DEV INTO SUP VENA CAVA, PERC APPROACH [id number] 01/06/17 Nutritional Asmnt/Malnutr-PDOC - Dietary Evaluation Malnutrition Findings (Please click <Entered> for more info): Nutritional Asmnt/Malnutrition Start: 06/30/17 09: 06 Text: Status: Complete Freq: Document 06/30/17 09:14 [email or web address] (Rec: 06/30/17 09:25 [email or web address]) Nutritional Asmnt/Malnutrition Patient General Information Nutritional Screening Consult Diagnosis bilateral lower extremity cellulitis Pertinent Medical Hx/Surgical Hx brain surgery, foot surgery, CVA Subjective Information Pt sleeping during visit. Mumbled somewhat in her sleep, but did not awaken to name being called multiple times. No PO intake recorded since admit (only 1 meal served). Current Diet Order/ Nutrition Support regular Patient / S.O Not Indicated Pertinent Medications reviewed Pertinent Labs BUN: 40 Nutritional Hx/Data Height 1.68 m Height (Calculated Centimeters) 167.6 Current Weight (lbs) 96.615 kg Weight (Calculated Kilograms) 96.6 Weight (Calculated Grams) 70477.2 [place] Body Weight 130 lbs % [place] Body Weight 128 Body Mass Index (BMI) 34.3 Weight Status Obese GI Symptoms GI Symptoms None Last BM none since admit (<1 day) Difficult in: None Food Allergies No Usual diet at home unable to assess Skin Integrity/Comment: intact, cellulitis, nonpitting edema to BLE Estimated Nutritional Goals BEE in Kcals: Adj wt of IBW Calories/Kcals/Kg 25-30 Kcals Calculated 1346-8392 Protein: Adj wt of IBW Protein g/k.8-1 Protein Calculated 55-69 Fluid: ml 2213-2576 mL (1 ml/kcal) Nutritional Problem 1. Problem Problem inadequate oral intake Etiology sleepiness Signs/Symptoms: no recorded PO intake since admit Intervention/Recommendation Comments 1. Continue regular diet, if PO intake consistently <50% then recommend add supplement Expected Outcomes/Goals Expected Outcomes/Goals goal: PO intake >50% monitor wt, labs, skin, PO intake
[2017-07-03] MEDS: NYSTATIN 100000 UNITS/GM POWD TP SCH ×2 (08:49→21:12)
[2017-07-03] MEDS: Ammonium Lactate Cream 140 gm Tube TP SCH ×2 (09:47→21:11)
--- NOTE | 2017-07-03 12:36 | Internal Medicine Prog Note ---
Internal Medicine Subjective - Subjective Service Date: 07/03/17 Patient seen and examined:: with staff Patient is:: awake, verbal Per staff patient has:: tolerating meds Internal Medicine Objective - Results Result Diagrams: 07/02/17 07:45 07/02/17 07:45 Recent Labs: Laboratory Last Values WBC 8.5 Th/cmm (4.8-10.8) D 07/02/17 07:45 RBC 4.19 Mil/cmm (3.80-5.20) 07/02/17 07:45 Hgb 11.8 gm/dL (12-16) L 07/02/17 07:45 Hct 35.5 % (41.0-60) L D 07/02/17 07:45 MCV 84.8 fl (81-100) 07/02/17 07:45 MCH 28.3 pg (27.0-31.0) 07/02/17 07:45 MCHC Differential 33.3 pg (28.0-36.0) 07/02/17 07:45 RDW 14.0 % (11.5-20.0) 07/02/17 07:45 Plt Count 333 Th/cmm (150-400) 07/02/17 07:45 MPV 8.6 fl 07/02/17 07:45 Neutrophils % 68.0 % (40.0-80.0) 07/02/17 07:45 Lymphocytes % 22.6 % (20.0-50.0) 07/02/17 07:45 Monocytes % 6.5 % (2.0-10.0) 07/02/17 07:45 Eosinophils % 2.7 % (0.0-5.0) 07/02/17 07:45 Basophils % 0.2 % (0.0-2.0) 07/02/17 07:45 Sodium 140 mEq/L (136-145) 07/02/17 07:45 Potassium 4.1 mEq/L (3.5-5.1) 07/02/17 07:45 Chloride 109 mEq/L (98-107) H 07/02/17 07:45 Carbon Dioxide 26.7 mEq/L (21.0-31.0) 07/02/17 07:45 Anion Gap 8.4 (7.0-16.0) 07/02/17 07:45 BUN 19 mg/dL (7-25) 07/02/17 07:45 Creatinine 0.9 mg/dL (0.6-1.2) 07/02/17 07:45 Est GFR ( Amer) TNP 07/02/17 07:45 Est GFR (Non-Af Amer) TNP 07/02/17 07:45 BUN/Creatinine Ratio 21.1 07/02/17 07:45 Glucose 100 mg/dL (70-105) 07/02/17 07:45 POC Glucose 94 MG/DL (70 - 105) 06/30/17 07:24 Calcium 9.2 mg/dL (8.6-10.3) 07/02/17 07:45 Total Bilirubin 0.3 mg/dL (0.3-1.0) 06/30/17 01:45 AST 15 U/L (13-39) 06/30/17 01:45 ALT 15 U/L (7-52) 06/30/17 01:45 Alkaline Phosphatase 104 U/L (34-104) 06/30/17 01:45 Total Protein 8.7 gm/dL (6.0-8.3) H 06/30/17 01:45 Albumin 4.0 gm/dL (3.7-5.3) 06/30/17 01:45 Globulin 4.7 gm/dL 06/30/17 01:45 Albumin/Globulin Ratio 0.9 (1.0-1.8) L 06/30/17 01:45 Urine Source CATH 07/01/17 18:15 Urine Color YELLOW 07/01/17 18:15 Urine Clarity HAZY (CLEAR) 07/01/17 18:15 Urine pH 6.5 (4.6 - 8.0) 07/01/17 18:15 Ur Specific [place] 1.010 (1.005-1.030) 07/01/17 18:15 Urine Protein NEGATIVE mg/dL (NEGATIVE) 07/01/17 18:15 Urine Glucose (UA) NEGATIVE mg/dL (NEGATIVE) 07/01/17 18:15 Urine Ketones NEGATIVE mg/dL (NEGATIVE) 07/01/17 18:15 Urine Blood TRACE (NEGATIVE) 07/01/17 18:15 Urine Nitrate NEGATIVE (NEGATIVE) 07/01/17 18:15 Urine Bilirubin NEGATIVE (NEGATIVE) 07/01/17 18:15 Urine Urobilinogen 0.2 E.U./dL (0.2 - 1.0) 07/01/17 18:15 Ur Leukocyte Esterase NEGATIVE (NEGATIVE) 07/01/17 18:15 Urine RBC 2-5 /hpf (0-5) 07/01/17 18:15 Urine WBC 0-2 /hpf (0-5) 07/01/17 18:15 Ur Epithelial Cells FEW /lpf (FEW) 07/01/17 18:15 Urine Bacteria FEW /hpf (NONE SEEN) 07/01/17 18:15 Vancomycin Trough 9.6 ug/mL (10-20) L 07/02/17 07:45 - Physical Exam Vitals and I&O: Vital Signs Temp 98 F 07/03/17 08:00 Pulse 84 07/03/17 08:00 Resp 18 07/03/17 08:00 BP 147/74 07/03/17 08:00 Pulse Ox 99 07/03/17 08:00 Intake & Output 07/02/17 07/03/17 07/03/17 18:59 06:59 18:59 Intake Total 1430 680 250 Balance 1430 680 250 Weight (lbs) 218 lb 3.2 oz 215 lb 9.6 oz Intake: Intake, IV Amount 350 200 250 Piperacillin Sodium/ 100 200 Tazobact 4.5 gm In Sodium Chloride 0.9% 100 ml @ 100 mls/hr IV Q8HR [facility] Rx #:[id number] Vancomycin HCl 1.25 gm In 250 250 Sodium Chloride 0.9% 250 ml @ 165 mls/hr IV Q24H [facility] Rx#:[id number] Oral 1080 480 Other: # Voids 3 3 # Bowel Movements 1 Active Medications: Current Medications Piperacillin Sod/Tazobactam (Sod 4.5 gm/ Sodium Chloride) 100 mls @ 100 mls/hr IV Q8HR [facility] Stop: 08/29/17 12:59 Last Admin: 07/03/17 12:13 Dose: 100 mls/hr Vancomycin HCl 1.25 gm/ Sodium (Chloride) 250 mls @ 165 mls/hr IV Q24H [facility] Stop: 08/31/17 08:59 Last Infusion: 07/03/17 11:20 Dose: Infused Lactic Acid (Lac-Hydrin Cream) 1 appl TP Q12HR [facility] Stop: 08/30/17 20:59 Last Admin: 07/03/17 09:47 Dose: 1 appl Miscellaneous (Vancomycin Iv Per Pharmacy) 1 ea [facility] PRN PRN PRN Reason: PROTOCOL Stop: 08/29/17 03:35 Miscellaneous (Zosyn Iv Per Pharmacy) 1 ea [facility] PRN PRN PRN Reason: PROTOCOL Stop: 08/29/17 03:35 Miscellaneous (Vte Chemical Prophylaxis Screen/ Admission) 1 ea [facility] PRN PRN PRN Reason: PROTOCOL Stop: 08/29/17 11:16 Morphine Sulfate (Morphine) 1 mg IV Q4H PRN PRN Reason: Pain (Moderate) Stop: 08/29/17 03:44 Morphine Sulfate (Morphine) 2 mg IV Q4H PRN PRN Reason: Pain (Severe) Stop: 08/29/17 03:44 Mupirocin (Bactroban Oint) 1 appl TP Q12HR [facility] Stop: 07/06/17 20:59 Last Admin: 07/03/17 09:47 Dose: 1 appl Nystatin (Nystop) 0 units TP Q12HR [facility] Stop: 08/30/17 20:59 Last Admin: 07/03/17 08:49 Dose: 100,000 units Ondansetron HCl (Zofran) 4 mg IV Q4H PRN PRN Reason: Nausea Stop: 08/29/17 03:44 General: alert HEENT: NC/AT, PERRLA Neck: Supple Lungs: CTAB Cardiovascular: RRR, Normal S1, Normal S2, without murmur Abdomen: soft, non-tender, non-distended, positive bowel sound - Procedures Procedures: Procedures Procedure Code Date INSERTION OF INFUSION DEV INTO SUP VENA CAVA, PERC APPROACH [id number] 01/06/17 Internal Medicine Assmt/Plan - Assessment Assessment: cellulitis bilateral lower limbs hx cva - Plan Plan: ivabx as per id cbc/bmp in am continue current orders Nutritional Asmnt/Malnutr-PDOC - Dietary Evaluation Malnutrition Findings (Please click <Entered> for more info): Nutritional Asmnt/Malnutrition Start: 06/30/17 09: 06 Text: Status: Complete Freq: Document 06/30/17 09:14 [email or web address] (Rec: 06/30/17 09:25 [email or web address]) Nutritional Asmnt/Malnutrition Patient General Information Nutritional Screening Consult Diagnosis bilateral lower extremity cellulitis Pertinent Medical Hx/Surgical Hx brain surgery, foot surgery, CVA Subjective Information Pt sleeping during visit. Mumbled somewhat in her sleep, but did not awaken to name being called multiple times. No PO intake recorded since admit (only 1 meal served). Current Diet Order/ Nutrition Support regular Patient / S.O Not Indicated Pertinent Medications reviewed Pertinent Labs BUN: 40 Nutritional Hx/Data Height 5 ft 6 in Height (Calculated Centimeters) 167.6 Current Weight (lbs) 213 lb Weight (Calculated Kilograms) 96.6 Weight (Calculated Grams) 88948.2 [place] Body Weight 130 lbs % [place] Body Weight 128 Body Mass Index (BMI) 34.3 Weight Status Obese GI Symptoms GI Symptoms None Last BM none since admit (<1 day) Difficult in: None Food Allergies No Usual diet at home unable to assess Skin Integrity/Comment: intact, cellulitis, nonpitting edema to BLE Estimated Nutritional Goals BEE in Kcals: Adj wt of IBW Calories/Kcals/Kg 25-30 Kcals Calculated 0457-1393 Protein: Adj wt of IBW Protein g/k.8-1 Protein Calculated 55-69 Fluid: ml 9874-2803 mL (1 ml/kcal) Nutritional Problem 1. Problem Problem inadequate oral intake Etiology sleepiness Signs/Symptoms: no recorded PO intake since admit Intervention/Recommendation Comments 1. Continue regular diet, if PO intake consistently <50% then recommend add supplement Expected Outcomes/Goals Expected Outcomes/Goals goal: PO intake >50% monitor wt, labs, skin, PO intake
--- NOTE | 2017-07-03 14:54 | Infectious Disease Prog Note ---
Infectious Disease Subjective - Review of Systems Service Date: 07/03/17 Subjective: No new change, no fever. Infectious Disease Objective - Results Result Diagrams: 07/02/17 07:45 07/02/17 07:45 Recent Labs: Laboratory Last Values WBC 8.5 Th/cmm (4.8-10.8) D 07/02/17 07:45 RBC 4.19 Mil/cmm (3.80-5.20) 07/02/17 07:45 Hgb 11.8 gm/dL (12-16) L 07/02/17 07:45 Hct 35.5 % (41.0-60) L D 07/02/17 07:45 MCV 84.8 fl (81-100) 07/02/17 07:45 MCH 28.3 pg (27.0-31.0) 07/02/17 07:45 MCHC Differential 33.3 pg (28.0-36.0) 07/02/17 07:45 RDW 14.0 % (11.5-20.0) 07/02/17 07:45 Plt Count 333 Th/cmm (150-400) 07/02/17 07:45 MPV 8.6 fl 07/02/17 07:45 Neutrophils % 68.0 % (40.0-80.0) 07/02/17 07:45 Lymphocytes % 22.6 % (20.0-50.0) 07/02/17 07:45 Monocytes % 6.5 % (2.0-10.0) 07/02/17 07:45 Eosinophils % 2.7 % (0.0-5.0) 07/02/17 07:45 Basophils % 0.2 % (0.0-2.0) 07/02/17 07:45 Sodium 140 mEq/L (136-145) 07/02/17 07:45 Potassium 4.1 mEq/L (3.5-5.1) 07/02/17 07:45 Chloride 109 mEq/L (98-107) H 07/02/17 07:45 Carbon Dioxide 26.7 mEq/L (21.0-31.0) 07/02/17 07:45 Anion Gap 8.4 (7.0-16.0) 07/02/17 07:45 BUN 19 mg/dL (7-25) 07/02/17 07:45 Creatinine 0.9 mg/dL (0.6-1.2) 07/02/17 07:45 Est GFR ( Amer) TNP 07/02/17 07:45 Est GFR (Non-Af Amer) TNP 07/02/17 07:45 BUN/Creatinine Ratio 21.1 07/02/17 07:45 Glucose 100 mg/dL (70-105) 07/02/17 07:45 POC Glucose 94 MG/DL (70 - 105) 06/30/17 07:24 Calcium 9.2 mg/dL (8.6-10.3) 07/02/17 07:45 Total Bilirubin 0.3 mg/dL (0.3-1.0) 06/30/17 01:45 AST 15 U/L (13-39) 06/30/17 01:45 ALT 15 U/L (7-52) 06/30/17 01:45 Alkaline Phosphatase 104 U/L (34-104) 06/30/17 01:45 Total Protein 8.7 gm/dL (6.0-8.3) H 06/30/17 01:45 Albumin 4.0 gm/dL (3.7-5.3) 06/30/17 01:45 Globulin 4.7 gm/dL 06/30/17 01:45 Albumin/Globulin Ratio 0.9 (1.0-1.8) L 06/30/17 01:45 Urine Source CATH 07/01/17 18:15 Urine Color YELLOW 07/01/17 18:15 Urine Clarity HAZY (CLEAR) 07/01/17 18:15 Urine pH 6.5 (4.6 - 8.0) 07/01/17 18:15 Ur Specific [place] 1.010 (1.005-1.030) 07/01/17 18:15 Urine Protein NEGATIVE mg/dL (NEGATIVE) 07/01/17 18:15 Urine Glucose (UA) NEGATIVE mg/dL (NEGATIVE) 07/01/17 18:15 Urine Ketones NEGATIVE mg/dL (NEGATIVE) 07/01/17 18:15 Urine Blood TRACE (NEGATIVE) 07/01/17 18:15 Urine Nitrate NEGATIVE (NEGATIVE) 07/01/17 18:15 Urine Bilirubin NEGATIVE (NEGATIVE) 07/01/17 18:15 Urine Urobilinogen 0.2 E.U./dL (0.2 - 1.0) 07/01/17 18:15 Ur Leukocyte Esterase NEGATIVE (NEGATIVE) 07/01/17 18:15 Urine RBC 2-5 /hpf (0-5) 07/01/17 18:15 Urine WBC 0-2 /hpf (0-5) 07/01/17 18:15 Ur Epithelial Cells FEW /lpf (FEW) 07/01/17 18:15 Urine Bacteria FEW /hpf (NONE SEEN) 07/01/17 18:15 Vancomycin Trough 9.6 ug/mL (10-20) L 07/02/17 07:45 - Physical Exam Vitals and I&O: Vital Signs Temp 97.4 F 07/03/17 12:00 Pulse 79 07/03/17 12:00 Resp 18 07/03/17 12:00 BP 127/69 07/03/17 12:00 Pulse Ox 100 07/03/17 12:00 Intake & Output 07/02/17 07/03/17 07/03/17 18:59 06:59 18:59 Intake Total 1430 680 250 Balance 1430 680 250 Weight (lbs) 98.974 kg 97.795 kg Intake: Intake, IV Amount 350 200 250 Piperacillin Sodium/ 100 200 Tazobact 4.5 gm In Sodium Chloride 0.9% 100 ml @ 100 mls/hr IV Q8HR [facility] Rx #:[id number] Vancomycin HCl 1.25 gm In 250 250 Sodium Chloride 0.9% 250 ml @ 165 mls/hr IV Q24H [facility] Rx#:[id number] Oral 1080 480 Other: # Voids 3 3 # Bowel Movements 1 Active Medications: Current Medications Piperacillin Sod/Tazobactam (Sod 4.5 gm/ Sodium Chloride) 100 mls @ 100 mls/hr IV Q8HR [facility] Stop: 08/29/17 12:59 Last Admin: 07/03/17 12:13 Dose: 100 mls/hr Vancomycin HCl 1.25 gm/ Sodium (Chloride) 250 mls @ 165 mls/hr IV Q24H [facility] Stop: 08/31/17 08:59 Last Infusion: 07/03/17 11:20 Dose: Infused Lactic Acid (Lac-Hydrin Cream) 1 appl TP Q12HR [facility] Stop: 08/30/17 20:59 Last Admin: 07/03/17 09:47 Dose: 1 appl Miscellaneous (Vancomycin Iv Per Pharmacy) 1 ea PRN PRN PRN Reason: PROTOCOL Stop: 08/29/17 03:35 Miscellaneous (Zosyn Iv Per Pharmacy) 1 [facility] PRN PRN PRN Reason: PROTOCOL Stop: 08/29/17 03:35 Miscellaneous (Vte Chemical Prophylaxis Screen/ Admission) 1 ea PRN PRN PRN Reason: PROTOCOL Stop: 08/29/17 11:16 Morphine Sulfate (Morphine) 1 mg IV Q4H PRN PRN Reason: Pain (Moderate) Stop: 08/29/17 03:44 Morphine Sulfate (Morphine) 2 mg IV Q4H PRN PRN Reason: Pain (Severe) Stop: 08/29/17 03:44 Mupirocin (Bactroban Oint) 1 appl TP Q12HR [facility] Stop: 07/06/17 20:59 Last Admin: 07/03/17 09:47 Dose: 1 appl Nystatin (Nystop) 0 units TP Q12HR [facility] Stop: 08/30/17 20:59 Last Admin: 07/03/17 08:49 Dose: 100,000 units Ondansetron HCl (Zofran) 4 mg IV Q4H PRN PRN Reason: Nausea Stop: 08/29/17 03:44 General: no acute distress, well developed, well nourished HEENT: atraumatic, normocephalic, PERRLA, EOMI Neck: supple, no thyromegaly Cardiovascular: S1S2, regular Lungs: clear to auscultation bilaterally, clear to percussion Abdomen: soft, other (redness if lower abdominal fold.), no tender Extremities: other (erythem and dry skin of bith lower extremities.), no cyanosis, no clubbing Neurological: awake, alert, oriented - Procedures Procedures: Procedures Procedure Code Date INSERTION OF INFUSION DEV INTO SUP VENA CAVA, PERC APPROACH [id number] 01/06/17 Infectious Disease Assmt/Plan - Assessment Assessment: 1. Bilateral lower extremity cellulitis and swelling, rule out deep vein thrombosis, rule out arterial insufficiency. 2. Abdominal wall cellulitis, secondary infection on Tinea cruris. 3. Obesity. 4. Cerebrovascular accident. 5. Tinea Cruris. - Plan Plan: Continue vancomycin and Zosyn for 2 weeks. PICC line. Apply some moisturizer cream like Lac-Hydrin cream and apply Lotrisone to groins and lower abdomen. Nutritional Asmnt/Malnutr-PDOC - Dietary Evaluation Malnutrition Findings (Please click <Entered> for more info): Nutritional Asmnt/Malnutrition Start: 06/30/17 09: 06 Text: Status: Complete Freq: Document 06/30/17 09:14 [email or web address].[email or web address] (Rec: 06/30/17 09:25 [email or web address] [email or web address]) Nutritional Asmnt/Malnutrition Patient General Information Nutritional Screening Consult Diagnosis bilateral lower extremity cellulitis Pertinent Medical Hx/Surgical Hx brain surgery, foot surgery, CVA Subjective Information Pt sleeping during visit. Mumbled somewhat in her sleep, but did not awaken to name being called multiple times. No PO intake recorded since admit (only 1 meal served). Current Diet Order/ Nutrition Support regular Patient / S.O Not Indicated Pertinent Medications reviewed Pertinent Labs BUN: 40 Nutritional Hx/Data Height 1.68 m Height (Calculated Centimeters) 167.6 Current Weight (lbs) 96.615 kg Weight (Calculated Kilograms) 96.6 Weight (Calculated Grams) 07324.2 [place] Body Weight 130 lbs % [place] Body Weight 128 Body Mass Index (BMI) 34.3 Weight Status Obese GI Symptoms GI Symptoms None Last BM none since admit (<1 day) Difficult in: None Food Allergies No Usual diet at home unable to assess Skin Integrity/Comment: intact, cellulitis, nonpitting edema to BLE Estimated Nutritional Goals BEE in Kcals: Adj wt of IBW Calories/Kcals/Kg 25-30 Kcals Calculated 7069-9273 Protein: Adj wt of IBW Protein g/k.8-1 Protein Calculated 55-69 Fluid: ml 2775-6854 mL (1 ml/kcal) Nutritional Problem 1. Problem Problem inadequate oral intake Etiology sleepiness Signs/Symptoms: no recorded PO intake since admit Intervention/Recommendation Comments 1. Continue regular diet, if PO intake consistently <50% then recommend add supplement Expected Outcomes/Goals Expected Outcomes/Goals goal: PO intake >50% monitor wt, labs, skin, PO intake
[2017-07-03 17:02] LABS: URINE BILIRUBIN NEGATIVE (NEGATIVE); URINE BLOOD NEGATIVE (NEGATIVE); URINE GLUCOSE (UA) NEGATIVE (NEGATIVE); URINE KETONE NEGATIVE (NEGATIVE); URINE LEUKOCYTE ESTERASE NEGATIVE (NEGATIVE); URINE MICROSCOPIC INDICATED? YES; URINE NITRATE NEGATIVE (NEGATIVE); URINE PROTEIN NEGATIVE (NEGATIVE); URINE SOURCE RANDOM; URINE UROBILINOGEN 0.2 E.U./dL (0.2 - 1.0)
[2017-07-03 17:23] LABS: URINE BACTERIA NONE SEEN /hpf (NONE SEEN); URINE CLARITY CLEAR (CLEAR); URINE COLOR YELLOW; URINE EPITHELIAL CELLS NONE SEEN /lpf (FEW); URINE RBC NONE SEEN /hpf (0-5); URINE WBC NONE SEEN /hpf (0-5)
[2017-07-04 06:41] LABS: BUN - UREA NITROGEN 19 mg/dL (7-25); CALCIUM SERUM 9.5 mg/dL (8.6-10.3); CARBON DIOXIDE 26.2 mEq/L (21.0-31.0); CREATININE - SERUM 0.8 mg/dL (0.6-1.2); GLUCOSE 94 mg/dL (70-105); POTASSIUM SERUM 3.7 mEq/L (3.5-5.1); SODIUM SERUM 136 mEq/L (136-145)
[2017-07-04 06:49] LABS: % BASOPHILS 0.6 % (0.0-2.0); % EOSINOPHILS 4.5 % (0.0-5.0); % LYMPHOCYTES 26.6 % (20.0-50.0); % MONOCYTES 7.9 % (2.0-10.0); % NEUTROPHILS 60.4 % (40.0-80.0); BASOPHILE ABSOLUTE 0.1 Th/cumm (0-0.2); EOSINOPHILE ABSOLUTE 0.4 Th/cmm (0.1-0.4); HEMOGLOBIN 13.2 gm/dL (12-16); LYMPHOCYTE ABSOLUTE 2.4 Th/cmm (1.5-3.0); MEAN CELL VOLUME 84.9 fl (81-100); MEAN CORPUSCULAR HEMOGLOBIN 27.4 pg (27.0-31.0); MEAN CORPUSCULAR HGB CONC 32.3 pg (28.0-36.0); MEAN PLATELET VOLUME 8.7 fl; MONOCYTE ABSOLUTE 0.7 Th/cmm (0.3-1.0); NEUTROPHILE ABSOLUTE 5.3 Th/cmm (1.8-8.0); PLATELET COUNT 376 Th/cmm (150-400); RED CELL DISTRIBUTION WIDTH 14.1 % (11.5-20.0); WHITE BLOOD COUNT 8.9 Th/cmm (4.8-10.8)
[2017-07-04 06:52] LABS: HEMATOCRIT 40.7 % (41.0-60)
[2017-07-04] MEDS: Ammonium Lactate Cream 140 gm Tube TP SCH ×2 (08:47→20:45)
[2017-07-04] MEDS: NYSTATIN 100000 UNITS/GM POWD TP SCH ×2 (09:31→20:45)
--- NOTE | 2017-07-04 11:04 | Diagnostic Imaging Report ---
Exam: PICC line placement. HISTORY: PICC line placement. Findings: Portable examination of the chest at the 2204 hours reviewed and compared to prior study of 07/01/2017 demonstrates large hiatal hernia question of right basilar infiltrate and effusion Left basilar atelectasis and pleural thickening versus small effusion appreciated Interval placement left-sided PICC line is noted with tip in superior vena cava. IMPRESSION: Left-sided PICC line terminates in superior vena cava. Large hiatal hernia on the right hemidiaphragm superimposed pneumonia cannot be excluded. Left basilar atelectasis versus small pleural effusion. Clinical correlation and a follow-up examination recommended.
--- NOTE | 2017-07-04 19:39 | Progress Notes ---
DATE: 07/04/2017 SUBJECTIVE: The patient was seen in her room, lying in the bed. The patient is awake, alert, oriented x 3. Denies pain or discomfort at this time. Otherwise, the patient appears to be in no acute distress. According to nurses from last night, the patient has tried to sign out AMA, but the patient has decided to stay over. OBJECTIVE: VITAL SIGNS: Temperature 98.1, heart rate 69, blood pressure 126/43, respirations 19, and 97% on room air. HEENT: Head is atraumatic and normocephalic. Eyes: Bilateral conjunctivae are clear. Bilateral pupils are equally round and reactive. NECK: Supple. No JVD. CARDIOVASCULAR: S1 and S2, without murmur. PULMONARY: Clear to auscultation. GASTROINTESTINAL: Soft and nontender with guarding. Positive bowel sounds. MUSCULOSKELETAL: No clubbing. No cyanosis. Positive redness in bilateral lower extremity, +2 edema noted. ASSESSMENT: 1. Cellulitis of the bilateral lower extremities. 2. Obesity. 3. Nicotine dependence. 4. History of cerebrovascular accident. PLAN: We will continue IV antibiotics. We will follow up with ID doctor to monitor the patient's condition and behavior. We will provide pain management as needed. Treatment plans were discussed with the patient's nurse. Treatment plans were discussed with Dr. Mcguire. JOB# [id number]
[2017-07-05] MEDS: Ammonium Lactate Cream 140 gm Tube TP SCH ×2 (09:41→20:10)
[2017-07-05] MEDS: NYSTATIN 100000 UNITS/GM POWD TP SCH ×2 (09:41→20:10)
--- NOTE | 2017-07-05 13:39 | Internal Medicine Prog Note ---
Internal Medicine Subjective - Subjective Service Date: 07/05/17 Patient is:: awake, verbal Per staff patient has:: tolerating meds Internal Medicine Objective - Results Result Diagrams: 07/04/17 05:52 07/04/17 05:52 Recent Labs: Laboratory Last Values WBC 8.9 Th/cmm (4.8-10.8) 07/04/17 05:52 RBC 4.80 Mil/cmm (3.80-5.20) 07/04/17 05:52 Hgb 13.2 gm/dL (12-16) 07/04/17 05:52 Hct 40.7 % (41.0-60) L D 07/04/17 05:52 MCV 84.9 fl (81-100) 07/04/17 05:52 MCH 27.4 pg (27.0-31.0) 07/04/17 05:52 MCHC Differential 32.3 pg (28.0-36.0) 07/04/17 05:52 RDW 14.1 % (11.5-20.0) 07/04/17 05:52 Plt Count 376 Th/cmm (150-400) 07/04/17 05:52 MPV 8.7 fl 07/04/17 05:52 Neutrophils % 60.4 % (40.0-80.0) 07/04/17 05:52 Lymphocytes % 26.6 % (20.0-50.0) 07/04/17 05:52 Monocytes % 7.9 % (2.0-10.0) 07/04/17 05:52 Eosinophils % 4.5 % (0.0-5.0) 07/04/17 05:52 Basophils % 0.6 % (0.0-2.0) 07/04/17 05:52 Sodium 136 mEq/L (136-145) 07/04/17 05:52 Potassium 3.7 mEq/L (3.5-5.1) 07/04/17 05:52 Chloride 109 mEq/L (98-107) H 07/02/17 07:45 Carbon Dioxide 26.2 mEq/L (21.0-31.0) 07/04/17 05:52 Anion Gap 8.4 (7.0-16.0) 07/02/17 07:45 BUN 19 mg/dL (7-25) 07/04/17 05:52 Creatinine 0.8 mg/dL (0.6-1.2) 07/04/17 05:52 Est GFR ( Amer) TNP 07/04/17 05:52 Est GFR (Non-Af Amer) TNP 07/04/17 05:52 BUN/Creatinine Ratio 23.8 07/04/17 05:52 Glucose 94 mg/dL (70-105) 07/04/17 05:52 POC Glucose 94 MG/DL (70 - 105) 06/30/17 07:24 Calcium 9.5 mg/dL (8.6-10.3) 07/04/17 05:52 Total Bilirubin 0.3 mg/dL (0.3-1.0) 06/30/17 01:45 AST 15 U/L (13-39) 06/30/17 01:45 ALT 15 U/L (7-52) 06/30/17 01:45 Alkaline Phosphatase 104 U/L (34-104) 06/30/17 01:45 Total Protein 8.7 gm/dL (6.0-8.3) H 06/30/17 01:45 Albumin 4.0 gm/dL (3.7-5.3) 06/30/17 01:45 Globulin 4.7 gm/dL 06/30/17 01:45 Albumin/Globulin Ratio 0.9 (1.0-1.8) L 06/30/17 01:45 Urine Source RANDOM 07/03/17 15:10 Urine Color YELLOW 07/03/17 15:10 Urine Clarity CLEAR (CLEAR) 07/03/17 15:10 Urine pH 7.0 (4.6 - 8.0) 07/03/17 15:10 Ur Specific [place] 1.020 (1.005-1.030) 07/03/17 15:10 Urine Protein NEGATIVE mg/dL (NEGATIVE) 07/03/17 15:10 Urine Glucose (UA) NEGATIVE mg/dL (NEGATIVE) 07/03/17 15:10 Urine Ketones NEGATIVE mg/dL (NEGATIVE) 07/03/17 15:10 Urine Blood NEGATIVE (NEGATIVE) 07/03/17 15:10 Urine Nitrate NEGATIVE (NEGATIVE) 07/03/17 15:10 Urine Bilirubin NEGATIVE (NEGATIVE) 07/03/17 15:10 Urine Urobilinogen 0.2 E.U./dL (0.2 - 1.0) 07/03/17 15:10 Ur Leukocyte Esterase NEGATIVE (NEGATIVE) 07/03/17 15:10 Urine RBC NONE SEEN /hpf (0-5) 07/03/17 15:10 Urine WBC NONE SEEN /hpf (0-5) 07/03/17 15:10 Ur Epithelial Cells NONE SEEN /lpf (FEW) 07/03/17 15:10 Urine Bacteria NONE SEEN /hpf (NONE SEEN) 07/03/17 15:10 Vancomycin Trough 9.6 ug/mL (10-20) L 07/02/17 07:45 - Physical Exam Vitals and I&O: Vital Signs Temp 97.6 F 07/05/17 08:00 Pulse 96 07/05/17 08:00 Resp 20 07/05/17 08:00 BP 136/89 07/05/17 08:00 Pulse Ox 95 07/05/17 08:00 Intake & Output 07/04/17 07/05/17 07/05/17 18:59 06:59 18:59 Intake Total 350 200 250 Balance 350 200 250 Weight (lbs) 212 lb 1.6 oz Intake: Intake, IV Amount 350 200 250 Piperacillin Sodium/ 100 200 Tazobact 4.5 gm In Sodium Chloride 0.9% 100 ml @ 100 mls/hr IV Q8HR [facility] Rx #:[id number] Vancomycin HCl 1.25 gm In 250 250 Sodium Chloride 0.9% 250 ml @ 165 mls/hr IV Q24H [facility] Rx#:[id number] Other: # Voids 3 # Bowel Movements 2 Stool Characteristics Formed Active Medications: Current Medications Piperacillin Sod/Tazobactam (Sod 4.5 gm/ Sodium Chloride) 100 mls @ 100 mls/hr IV Q8HR [facility] Stop: 08/29/17 12:59 Last Admin: 07/05/17 13:14 Dose: 100 mls/hr Vancomycin HCl 1.25 gm/ Sodium (Chloride) 250 mls @ 165 mls/hr IV Q24H [facility] Stop: 08/31/17 08:59 Last Infusion: 07/05/17 11:15 Dose: Infused Lactic Acid (Lac-Hydrin Cream) 1 appl TP Q12HR [facility] Stop: 08/30/17 20:59 Last Admin: 07/05/17 09:41 Dose: 1 appl Miscellaneous (Vancomycin Iv Per Pharmacy) 1 ea PRN PRN PRN Reason: PROTOCOL Stop: 08/29/17 03:35 Miscellaneous (Zosyn Iv Per Pharmacy) 1 ea PRN PRN PRN Reason: PROTOCOL Stop: 08/29/17 03:35 Miscellaneous (Vte Chemical Prophylaxis Screen/ Admission) 1 ea PRN PRN PRN Reason: PROTOCOL Stop: 08/29/17 11:16 Morphine Sulfate (Morphine) 1 mg IV Q4H PRN PRN Reason: Pain (Moderate) Stop: 08/29/17 03:44 Morphine Sulfate (Morphine) 2 mg IV Q4H PRN PRN Reason: Pain (Severe) Stop: 08/29/17 03:44 Mupirocin (Bactroban Oint) 1 appl TP Q12HR [facility] Stop: 07/06/17 20:59 Last Admin: 07/05/17 09:41 Dose: 1 appl Nystatin (Nystop) 0 units TP Q12HR [facility] Stop: 08/30/17 20:59 Last Admin: 07/05/17 09:41 Dose: 100,000 units Ondansetron HCl (Zofran) 4 mg IV Q4H PRN PRN Reason: Nausea Stop: 08/29/17 03:44 General: alert HEENT: NC/AT, PERRLA Neck: Supple Lungs: CTAB Cardiovascular: RRR, Normal S1, Normal S2, without murmur Abdomen: soft, non-tender, non-distended, positive bowel sound - Procedures Procedures: Procedures Procedure Code Date INSERTION OF INFUSION DEV INTO SUP VENA CAVA, PERC APPROACH [id number] 01/06/17 Internal Medicine Assmt/Plan - Assessment Assessment: cellulitis bilateral lower limbs hx cva - Plan Plan: ivabx as per id cbc/bmp in am continue current orders Nutritional Asmnt/Malnutr-PDOC - Dietary Evaluation Malnutrition Findings (Please click <Entered> for more info): Nutritional Asmnt/Malnutrition Start: 06/30/17 09: 06 Text: Status: Complete Freq: Document 06/30/17 09:14 [email or web address] (Rec: 06/30/17 09:25 [email or web address]) Nutritional Asmnt/Malnutrition Patient General Information Nutritional Screening Consult Diagnosis bilateral lower extremity cellulitis Pertinent Medical Hx/Surgical Hx brain surgery, foot surgery, CVA Subjective Information Pt sleeping during visit. Mumbled somewhat in her sleep, but did not awaken to name being called multiple times. No PO intake recorded since admit (only 1 meal served). Current Diet Order/ Nutrition Support regular Patient / S.O Not Indicated Pertinent Medications reviewed Pertinent Labs BUN: 40 Nutritional Hx/Data Height 5 ft 6 in Height (Calculated Centimeters) 167.6 Current Weight (lbs) 213 lb Weight (Calculated Kilograms) 96.6 Weight (Calculated Grams) 25791.2 [place] Body Weight 130 lbs % [place] Body Weight 128 Body Mass Index (BMI) 34.3 Weight Status Obese GI Symptoms GI Symptoms None Last BM none since admit (<1 day) Difficult in: None Food Allergies No Usual diet at home unable to assess Skin Integrity/Comment: intact, cellulitis, nonpitting edema to BLE Estimated Nutritional Goals BEE in Kcals: Adj wt of IBW Calories/Kcals/Kg 25-30 Kcals Calculated 5870-7937 Protein: Adj wt of IBW Protein g/k.8-1 Protein Calculated 55-69 Fluid: ml 0855-6925 mL (1 ml/kcal) Nutritional Problem 1. Problem Problem inadequate oral intake Etiology sleepiness Signs/Symptoms: no recorded PO intake since admit Intervention/Recommendation Comments 1. Continue regular diet, if PO intake consistently <50% then recommend add supplement Expected Outcomes/Goals Expected Outcomes/Goals goal: PO intake >50% monitor wt, labs, skin, PO intake
--- NOTE | 2017-07-05 16:54 | Infectious Disease Prog Note ---
Infectious Disease Subjective - Review of Systems Service Date: 07/05/17 Subjective: No new change, no fever. Infectious Disease Objective - Results Result Diagrams: 07/04/17 05:52 07/04/17 05:52 Recent Labs: Laboratory Last Values WBC 8.9 Th/cmm (4.8-10.8) 07/04/17 05:52 RBC 4.80 Mil/cmm (3.80-5.20) 07/04/17 05:52 Hgb 13.2 gm/dL (12-16) 07/04/17 05:52 Hct 40.7 % (41.0-60) L D 07/04/17 05:52 MCV 84.9 fl (81-100) 07/04/17 05:52 MCH 27.4 pg (27.0-31.0) 07/04/17 05:52 MCHC Differential 32.3 pg (28.0-36.0) 07/04/17 05:52 RDW 14.1 % (11.5-20.0) 07/04/17 05:52 Plt Count 376 Th/cmm (150-400) 07/04/17 05:52 MPV 8.7 fl 07/04/17 05:52 Neutrophils % 60.4 % (40.0-80.0) 07/04/17 05:52 Lymphocytes % 26.6 % (20.0-50.0) 07/04/17 05:52 Monocytes % 7.9 % (2.0-10.0) 07/04/17 05:52 Eosinophils % 4.5 % (0.0-5.0) 07/04/17 05:52 Basophils % 0.6 % (0.0-2.0) 07/04/17 05:52 Sodium 136 mEq/L (136-145) 07/04/17 05:52 Potassium 3.7 mEq/L (3.5-5.1) 07/04/17 05:52 Chloride 109 mEq/L (98-107) H 07/02/17 07:45 Carbon Dioxide 26.2 mEq/L (21.0-31.0) 07/04/17 05:52 Anion Gap 8.4 (7.0-16.0) 07/02/17 07:45 BUN 19 mg/dL (7-25) 07/04/17 05:52 Creatinine 0.8 mg/dL (0.6-1.2) 07/04/17 05:52 Est GFR ( Amer) TNP 07/04/17 05:52 Est GFR (Non-Af Amer) TNP 07/04/17 05:52 BUN/Creatinine Ratio 23.8 07/04/17 05:52 Glucose 94 mg/dL (70-105) 07/04/17 05:52 POC Glucose 94 MG/DL (70 - 105) 06/30/17 07:24 Calcium 9.5 mg/dL (8.6-10.3) 07/04/17 05:52 Total Bilirubin 0.3 mg/dL (0.3-1.0) 06/30/17 01:45 AST 15 U/L (13-39) 06/30/17 01:45 ALT 15 U/L (7-52) 06/30/17 01:45 Alkaline Phosphatase 104 U/L (34-104) 06/30/17 01:45 Total Protein 8.7 gm/dL (6.0-8.3) H 06/30/17 01:45 Albumin 4.0 gm/dL (3.7-5.3) 06/30/17 01:45 Globulin 4.7 gm/dL 06/30/17 01:45 Albumin/Globulin Ratio 0.9 (1.0-1.8) L 06/30/17 01:45 Urine Source RANDOM 07/03/17 15:10 Urine Color YELLOW 07/03/17 15:10 Urine Clarity CLEAR (CLEAR) 07/03/17 15:10 Urine pH 7.0 (4.6 - 8.0) 07/03/17 15:10 Ur Specific [place] 1.020 (1.005-1.030) 07/03/17 15:10 Urine Protein NEGATIVE mg/dL (NEGATIVE) 07/03/17 15:10 Urine Glucose (UA) NEGATIVE mg/dL (NEGATIVE) 07/03/17 15:10 Urine Ketones NEGATIVE mg/dL (NEGATIVE) 07/03/17 15:10 Urine Blood NEGATIVE (NEGATIVE) 07/03/17 15:10 Urine Nitrate NEGATIVE (NEGATIVE) 07/03/17 15:10 Urine Bilirubin NEGATIVE (NEGATIVE) 07/03/17 15:10 Urine Urobilinogen 0.2 E.U./dL (0.2 - 1.0) 07/03/17 15:10 Ur Leukocyte Esterase NEGATIVE (NEGATIVE) 07/03/17 15:10 Urine RBC NONE SEEN /hpf (0-5) 07/03/17 15:10 Urine WBC NONE SEEN /hpf (0-5) 07/03/17 15:10 Ur Epithelial Cells NONE SEEN /lpf (FEW) 07/03/17 15:10 Urine Bacteria NONE SEEN /hpf (NONE SEEN) 07/03/17 15:10 Vancomycin Trough 9.6 ug/mL (10-20) L 07/02/17 07:45 - Physical Exam Vitals and I&O: Vital Signs Temp 98.2 F 07/05/17 16:00 Pulse 84 07/05/17 16:00 Resp 20 07/05/17 16:00 BP 106/65 07/05/17 16:00 Pulse Ox 100 07/05/17 16:00 Intake & Output 07/04/17 07/05/17 07/05/17 18:59 06:59 18:59 Intake Total 350 200 350 Balance 350 200 350 Weight (lbs) 96.207 kg Intake: Intake, IV Amount 350 200 350 Piperacillin Sodium/ 100 200 100 Tazobact 4.5 gm In Sodium Chloride 0.9% 100 ml @ 100 mls/hr IV Q8HR [facility] Rx #:[id number] Vancomycin HCl 1.25 gm In 250 250 Sodium Chloride 0.9% 250 ml @ 165 mls/hr IV Q24H [facility] Rx#:[id number] Other: # Voids 3 # Bowel Movements 2 Stool Characteristics Formed Active Medications: Current Medications Piperacillin Sod/Tazobactam (Sod 4.5 gm/ Sodium Chloride) 100 mls @ 100 mls/hr IV Q8HR [facility] Stop: 08/29/17 12:59 Last Infusion: 07/05/17 14:15 Dose: Infused Vancomycin HCl 1.25 gm/ Sodium (Chloride) 250 mls @ 165 mls/hr IV Q24H [facility] Stop: 08/31/17 08:59 Last Infusion: 07/05/17 11:15 Dose: Infused Lactic Acid (Lac-Hydrin Cream) 1 appl TP Q12HR [facility] Stop: 08/30/17 20:59 Last Admin: 07/05/17 09:41 Dose: 1 appl Miscellaneous (Vancomycin Iv Per Pharmacy) 1 ea [facility] PRN PRN PRN Reason: PROTOCOL Stop: 08/29/17 03:35 Miscellaneous (Zosyn Iv Per Pharmacy) 1 [facility] PRN PRN PRN Reason: PROTOCOL Stop: 08/29/17 03:35 Miscellaneous (Vte Chemical Prophylaxis Screen/ Admission) 1 [facility] PRN PRN PRN Reason: PROTOCOL Stop: 08/29/17 11:16 Morphine Sulfate (Morphine) 1 mg IV Q4H PRN PRN Reason: Pain (Moderate) Stop: 08/29/17 03:44 Morphine Sulfate (Morphine) 2 mg IV Q4H PRN PRN Reason: Pain (Severe) Stop: 08/29/17 03:44 Mupirocin (Bactroban Oint) 1 appl TP Q12HR [facility] Stop: 07/06/17 20:59 Last Admin: 07/05/17 09:41 Dose: 1 appl Nystatin (Nystop) 0 units TP Q12HR [facility] Stop: 08/30/17 20:59 Last Admin: 07/05/17 09:41 Dose: 100,000 units Ondansetron HCl (Zofran) 4 mg IV Q4H PRN PRN Reason: Nausea Stop: 08/29/17 03:44 General: no acute distress, well developed, well nourished HEENT: atraumatic, normocephalic, PERRLA, EOMI, moist mucous membrane Neck: supple, no thyromegaly Cardiovascular: S1S2, regular Lungs: clear to auscultation bilaterally, clear to percussion Abdomen: soft, no tender, no distended, no mass Extremities: no cyanosis, no clubbing, no edema Neurological: awake, alert, oriented Skin: intact - Procedures Procedures: Procedures Procedure Code Date INSERTION OF INFUSION DEV INTO SUP VENA CAVA, PERC APPROACH [id number] 01/06/17 Infectious Disease Assmt/Plan - Assessment Assessment: 1. Bilateral lower extremity cellulitis and swelling, rule out deep vein thrombosis, rule out arterial insufficiency. 2. Abdominal wall cellulitis, secondary infection on Tinea cruris. 3. Obesity. 4. Cerebrovascular accident. 5. Tinea Cruris. - Plan Plan: Continue vancomycin for 2 weeks. PICC line. DC zosyn. Apply some moisturizer cream like Lac-Hydrin cream and apply Lotrisone to groins and lower abdomen. Nutritional Asmnt/Malnutr-PDOC - Dietary Evaluation Malnutrition Findings (Please click <Entered> for more info): Nutritional Asmnt/Malnutrition Start: 06/30/17 09: 06 Text: Status: Complete Freq: Document 06/30/17 09:14 [email or web address] (Rec: 06/30/17 09:25 [email or web address]) Nutritional Asmnt/Malnutrition Patient General Information Nutritional Screening Consult Diagnosis bilateral lower extremity cellulitis Pertinent Medical Hx/Surgical Hx brain surgery, foot surgery, CVA Subjective Information Pt sleeping during visit. Mumbled somewhat in her sleep, but did not awaken to name being called multiple times. No PO intake recorded since admit (only 1 meal served). Current Diet Order/ Nutrition Support regular Patient / S.O Not Indicated Pertinent Medications reviewed Pertinent Labs BUN: 40 Nutritional Hx/Data Height 1.68 m Height (Calculated Centimeters) 167.6 Current Weight (lbs) 96.615 kg Weight (Calculated Kilograms) 96.6 Weight (Calculated Grams) 42120.2 [place] Body Weight 130 lbs % [place] Body Weight 128 Body Mass Index (BMI) 34.3 Weight Status Obese GI Symptoms GI Symptoms None Last BM none since admit (<1 day) Difficult in: None Food Allergies No Usual diet at home unable to assess Skin Integrity/Comment: intact, cellulitis, nonpitting edema to BLE Estimated Nutritional Goals BEE in Kcals: Adj wt of IBW Calories/Kcals/Kg 25-30 Kcals Calculated 0103-7031 Protein: Adj wt of IBW Protein g/k.8-1 Protein Calculated 55-69 Fluid: ml 7070-6471 mL (1 ml/kcal) Nutritional Problem 1. Problem Problem inadequate oral intake Etiology sleepiness Signs/Symptoms: no recorded PO intake since admit Intervention/Recommendation Comments 1. Continue regular diet, if PO intake consistently <50% then recommend add supplement Expected Outcomes/Goals Expected Outcomes/Goals goal: PO intake >50% monitor wt, labs, skin, PO intake
[2017-07-05 18:30] LABS: ANION GAP 7.5 (7.0-16.0); CHLORIDE 106 mEq/L (98-107)
[2017-07-06 06:55] LABS: % BASOPHILS 0.7 % (0.0-2.0); % EOSINOPHILS 5.6 % (0.0-5.0); % LYMPHOCYTES 31.8 % (20.0-50.0); % MONOCYTES 7.3 % (2.0-10.0); % NEUTROPHILS 54.6 % (40.0-80.0); BASOPHILE ABSOLUTE 0.1 Th/cumm (0-0.2); EOSINOPHILE ABSOLUTE 0.6 Th/cmm (0.1-0.4); HEMATOCRIT 41.6 % (41.0-60); HEMOGLOBIN 13.2 gm/dL (12-16); LYMPHOCYTE ABSOLUTE 3.1 Th/cmm (1.5-3.0); MEAN CELL VOLUME 85.2 fl (81-100); MEAN CORPUSCULAR HGB CONC 31.7 pg (28.0-36.0); MEAN PLATELET VOLUME 8.5 fl; MONOCYTE ABSOLUTE 0.7 Th/cmm (0.3-1.0); NEUTROPHILE ABSOLUTE 5.4 Th/cmm (1.8-8.0); PLATELET COUNT 368 Th/cmm (150-400); RED BLOOD COUNT 4.89 Mil/cmm (3.80-5.20); RED CELL DISTRIBUTION WIDTH 14.1 % (11.5-20.0); WHITE BLOOD COUNT 9.9 Th/cmm (4.8-10.8)
[2017-07-06 07:12] LABS: ANION GAP 9.8 (7.0-16.0); BUN - UREA NITROGEN 23 mg/dL (7-25); CALCIUM SERUM 9.5 mg/dL (8.6-10.3); CARBON DIOXIDE 24.1 mEq/L (21.0-31.0); CHLORIDE 108 mEq/L (98-107); CREATININE - SERUM 0.9 mg/dL (0.6-1.2); GLUCOSE 88 mg/dL (70-105); POTASSIUM SERUM 3.9 mEq/L (3.5-5.1); SODIUM SERUM 138 mEq/L (136-145)
--- NOTE | 2017-07-06 09:18 | General Progress Note ---
Subjective - Review of Systems Events since last encounter: no change no fever Objective - Results Result Diagrams: 07/06/17 06:20 07/06/17 06:20 Recent Labs: Laboratory Last Values WBC 9.9 Th/cmm (4.8-10.8) 07/06/17 06:20 RBC 4.89 Mil/cmm (3.80-5.20) 07/06/17 06:20 Hgb 13.2 gm/dL (12-16) 07/06/17 06:20 Hct 41.6 % (41.0-60) 07/06/17 06:20 MCV 85.2 fl (81-100) 07/06/17 06:20 MCH 27.0 pg (27.0-31.0) 07/06/17 06:20 MCHC Differential 31.7 pg (28.0-36.0) 07/06/17 06:20 RDW 14.1 % (11.5-20.0) 07/06/17 06:20 Plt Count 368 Th/cmm (150-400) 07/06/17 06:20 MPV 8.5 fl 07/06/17 06:20 Neutrophils % 54.6 % (40.0-80.0) 07/06/17 06:20 Lymphocytes % 31.8 % (20.0-50.0) 07/06/17 06:20 Monocytes % 7.3 % (2.0-10.0) 07/06/17 06:20 Eosinophils % 5.6 % (0.0-5.0) H 07/06/17 06:20 Basophils % 0.7 % (0.0-2.0) 07/06/17 06:20 Sodium 138 mEq/L (136-145) 07/06/17 06:20 Potassium 3.9 mEq/L (3.5-5.1) 07/06/17 06:20 Chloride 108 mEq/L (98-107) H 07/06/17 06:20 Carbon Dioxide 24.1 mEq/L (21.0-31.0) 07/06/17 06:20 Anion Gap 9.8 (7.0-16.0) 07/06/17 06:20 BUN 23 mg/dL (7-25) 07/06/17 06:20 Creatinine 0.9 mg/dL (0.6-1.2) 07/06/17 06:20 Est GFR ( Amer) TNP 07/06/17 06:20 Est GFR (Non-Af Amer) TNP 07/06/17 06:20 BUN/Creatinine Ratio 25.6 07/06/17 06:20 Glucose 88 mg/dL (70-105) 07/06/17 06:20 POC Glucose 94 MG/DL (70 - 105) 06/30/17 07:24 Calcium 9.5 mg/dL (8.6-10.3) 07/06/17 06:20 Total Bilirubin 0.3 mg/dL (0.3-1.0) 06/30/17 01:45 AST 15 U/L (13-39) 06/30/17 01:45 ALT 15 U/L (7-52) 06/30/17 01:45 Alkaline Phosphatase 104 U/L (34-104) 06/30/17 01:45 Total Protein 8.7 gm/dL (6.0-8.3) H 06/30/17 01:45 Albumin 4.0 gm/dL (3.7-5.3) 06/30/17 01:45 Globulin 4.7 gm/dL 06/30/17 01:45 Albumin/Globulin Ratio 0.9 (1.0-1.8) L 06/30/17 01:45 Urine Source RANDOM 07/03/17 15:10 Urine Color YELLOW 07/03/17 15:10 Urine Clarity CLEAR (CLEAR) 07/03/17 15:10 Urine pH 7.0 (4.6 - 8.0) 07/03/17 15:10 Ur Specific [place] 1.020 (1.005-1.030) 07/03/17 15:10 Urine Protein NEGATIVE mg/dL (NEGATIVE) 07/03/17 15:10 Urine Glucose (UA) NEGATIVE mg/dL (NEGATIVE) 07/03/17 15:10 Urine Ketones NEGATIVE mg/dL (NEGATIVE) 07/03/17 15:10 Urine Blood NEGATIVE (NEGATIVE) 07/03/17 15:10 Urine Nitrate NEGATIVE (NEGATIVE) 07/03/17 15:10 Urine Bilirubin NEGATIVE (NEGATIVE) 07/03/17 15:10 Urine Urobilinogen 0.2 E.U./dL (0.2 - 1.0) 07/03/17 15:10 Ur Leukocyte Esterase NEGATIVE (NEGATIVE) 07/03/17 15:10 Urine RBC NONE SEEN /hpf (0-5) 07/03/17 15:10 Urine WBC NONE SEEN /hpf (0-5) 07/03/17 15:10 Ur Epithelial Cells NONE SEEN /lpf (FEW) 07/03/17 15:10 Urine Bacteria NONE SEEN /hpf (NONE SEEN) 07/03/17 15:10 Vancomycin Trough 10.7 ug/mL (10-20) 07/06/17 06:20 - Physical Exam Vitals and I&O: Vital Signs Temp 97.4 F 07/06/17 04:00 Pulse 80 07/06/17 04:00 Resp 19 07/06/17 04:00 BP 128/72 07/06/17 04:00 Pulse Ox 98 07/06/17 04:00 Intake & Output 07/05/17 07/06/17 07/06/17 18:59 06:59 18:59 Intake Total 350 50 Output Total 1 Balance 350 49 Weight (lbs) 96.57 kg Intake: Intake, IV Amount 350 Piperacillin Sodium/ 100 Tazobact 4.5 gm In Sodium Chloride 0.9% 100 ml @ 100 mls/hr IV Q8HR [facility] Rx #:[id number] Vancomycin HCl 1.25 gm In 250 Sodium Chloride 0.9% 250 ml @ 165 mls/hr IV Q24H [facility] Rx#:[id number] Oral 50 Output: Stool 1 Other: # Voids 1 Stool Characteristics Formed Formed Active Medications: Current Medications Vancomycin HCl 1.25 gm/ Sodium (Chloride) 250 mls @ 165 mls/hr IV Q24H [facility] Stop: 08/31/17 08:59 Last Infusion: 07/05/17 11:15 Dose: Infused Lactic Acid (Lac-Hydrin Cream) 1 appl TP Q12HR [facility] Stop: 08/30/17 20:59 Last Admin: 07/05/17 20:10 Dose: 1 appl Miscellaneous (Vancomycin Iv Per Pharmacy) 1 [facility] PRN PRN PRN Reason: PROTOCOL Stop: 08/29/17 03:35 Miscellaneous (Zosyn Iv Per Pharmacy) 1 [facility] PRN PRN PRN Reason: PROTOCOL Stop: 08/29/17 03:35 Miscellaneous (Vte Chemical Prophylaxis Screen/ Admission) 1 [facility] PRN PRN PRN Reason: PROTOCOL Stop: 08/29/17 11:16 Morphine Sulfate (Morphine) 1 mg IV Q4H PRN PRN Reason: Pain (Moderate) Stop: 08/29/17 03:44 Morphine Sulfate (Morphine) 2 mg IV Q4H PRN PRN Reason: Pain (Severe) Stop: 08/29/17 03:44 Mupirocin (Bactroban Oint) 1 appl TP Q12HR [facility] Stop: 07/06/17 20:59 Last Admin: 07/05/17 20:10 Dose: 1 appl Nystatin (Nystop) 0 units TP Q12HR [facility] Stop: 08/30/17 20:59 Last Admin: 07/05/17 20:10 Dose: 100,000 units Ondansetron HCl (Zofran) 4 mg IV Q4H PRN PRN Reason: Nausea Stop: 08/29/17 03:44 - Procedures Procedures: Procedures Procedure Code Date INSERTION OF INFUSION DEV INTO SUP VENA CAVA, PERC APPROACH [id number] 01/06/17 Nutritional Asmnt/Malnutr-PDOC - Dietary Evaluation Malnutrition Findings (Please click <Entered> for more info): Nutritional Asmnt/Malnutrition Start: 06/30/17 09: 06 Text: Status: Complete Freq: Document 06/30/17 09:14 [email or web address].[email or web address] (Rec: 06/30/17 09:25 [email or web address] [email or web address]) Nutritional Asmnt/Malnutrition Patient General Information Nutritional Screening Consult Diagnosis bilateral lower extremity cellulitis Pertinent Medical Hx/Surgical Hx brain surgery, foot surgery, CVA Subjective Information Pt sleeping during visit. Mumbled somewhat in her sleep, but did not awaken to name being called multiple times. No PO intake recorded since admit (only 1 meal served). Current Diet Order/ Nutrition Support regular Patient / S.O Not Indicated Pertinent Medications reviewed Pertinent Labs BUN: 40 Nutritional Hx/Data Height 1.68 m Height (Calculated Centimeters) 167.6 Current Weight (lbs) 96.615 kg Weight (Calculated Kilograms) 96.6 Weight (Calculated Grams) 46947.2 [place] Body Weight 130 lbs % [place] Body Weight 128 Body Mass Index (BMI) 34.3 Weight Status Obese GI Symptoms GI Symptoms None Last BM none since admit (<1 day) Difficult in: None Food Allergies No Usual diet at home unable to assess Skin Integrity/Comment: intact, cellulitis, nonpitting edema to BLE Estimated Nutritional Goals BEE in Kcals: Adj wt of IBW Calories/Kcals/Kg 25-30 Kcals Calculated 4833-4313 Protein: Adj wt of IBW Protein g/k.8-1 Protein Calculated 55-69 Fluid: ml 3462-6593 mL (1 ml/kcal) Nutritional Problem 1. Problem Problem inadequate oral intake Etiology sleepiness Signs/Symptoms: no recorded PO intake since admit Intervention/Recommendation Comments 1. Continue regular diet, if PO intake consistently <50% then recommend add supplement Expected Outcomes/Goals Expected Outcomes/Goals goal: PO intake >50% monitor wt, labs, skin, PO intake
[2017-07-06] MEDS: Ammonium Lactate Cream 140 gm Tube TP SCH ×2 (10:06→20:31)
[2017-07-06] MEDS: NYSTATIN 100000 UNITS/GM POWD TP SCH ×2 (10:06→20:31)
[2017-07-06] MEDS ORDERED: Probiotic Screen MC PRN (12:45)
--- NOTE | 2017-07-06 13:38 | Infectious Disease Prog Note ---
Infectious Disease Subjective - Review of Systems Service Date: 07/06/17 Subjective: No new change, no fever. Infectious Disease Objective - Results Result Diagrams: 07/06/17 06:20 07/06/17 06:20 Recent Labs: Laboratory Last Values WBC 9.9 Th/cmm (4.8-10.8) 07/06/17 06:20 RBC 4.89 Mil/cmm (3.80-5.20) 07/06/17 06:20 Hgb 13.2 gm/dL (12-16) 07/06/17 06:20 Hct 41.6 % (41.0-60) 07/06/17 06:20 MCV 85.2 fl (81-100) 07/06/17 06:20 MCH 27.0 pg (27.0-31.0) 07/06/17 06:20 MCHC Differential 31.7 pg (28.0-36.0) 07/06/17 06:20 RDW 14.1 % (11.5-20.0) 07/06/17 06:20 Plt Count 368 Th/cmm (150-400) 07/06/17 06:20 MPV 8.5 fl 07/06/17 06:20 Neutrophils % 54.6 % (40.0-80.0) 07/06/17 06:20 Lymphocytes % 31.8 % (20.0-50.0) 07/06/17 06:20 Monocytes % 7.3 % (2.0-10.0) 07/06/17 06:20 Eosinophils % 5.6 % (0.0-5.0) H 07/06/17 06:20 Basophils % 0.7 % (0.0-2.0) 07/06/17 06:20 Sodium 138 mEq/L (136-145) 07/06/17 06:20 Potassium 3.9 mEq/L (3.5-5.1) 07/06/17 06:20 Chloride 108 mEq/L (98-107) H 07/06/17 06:20 Carbon Dioxide 24.1 mEq/L (21.0-31.0) 07/06/17 06:20 Anion Gap 9.8 (7.0-16.0) 07/06/17 06:20 BUN 23 mg/dL (7-25) 07/06/17 06:20 Creatinine 0.9 mg/dL (0.6-1.2) 07/06/17 06:20 Est GFR ( Amer) TNP 07/06/17 06:20 Est GFR (Non-Af Amer) TNP 07/06/17 06:20 BUN/Creatinine Ratio 25.6 07/06/17 06:20 Glucose 88 mg/dL (70-105) 07/06/17 06:20 POC Glucose 94 MG/DL (70 - 105) 06/30/17 07:24 Calcium 9.5 mg/dL (8.6-10.3) 07/06/17 06:20 Total Bilirubin 0.3 mg/dL (0.3-1.0) 06/30/17 01:45 AST 15 U/L (13-39) 06/30/17 01:45 ALT 15 U/L (7-52) 06/30/17 01:45 Alkaline Phosphatase 104 U/L (34-104) 06/30/17 01:45 Total Protein 8.7 gm/dL (6.0-8.3) H 06/30/17 01:45 Albumin 4.0 gm/dL (3.7-5.3) 06/30/17 01:45 Globulin 4.7 gm/dL 06/30/17 01:45 Albumin/Globulin Ratio 0.9 (1.0-1.8) L 06/30/17 01:45 Urine Source RANDOM 07/03/17 15:10 Urine Color YELLOW 07/03/17 15:10 Urine Clarity CLEAR (CLEAR) 07/03/17 15:10 Urine pH 7.0 (4.6 - 8.0) 07/03/17 15:10 Ur Specific [place] 1.020 (1.005-1.030) 07/03/17 15:10 Urine Protein NEGATIVE mg/dL (NEGATIVE) 07/03/17 15:10 Urine Glucose (UA) NEGATIVE mg/dL (NEGATIVE) 07/03/17 15:10 Urine Ketones NEGATIVE mg/dL (NEGATIVE) 07/03/17 15:10 Urine Blood NEGATIVE (NEGATIVE) 07/03/17 15:10 Urine Nitrate NEGATIVE (NEGATIVE) 07/03/17 15:10 Urine Bilirubin NEGATIVE (NEGATIVE) 07/03/17 15:10 Urine Urobilinogen 0.2 E.U./dL (0.2 - 1.0) 07/03/17 15:10 Ur Leukocyte Esterase NEGATIVE (NEGATIVE) 07/03/17 15:10 Urine RBC NONE SEEN /hpf (0-5) 07/03/17 15:10 Urine WBC NONE SEEN /hpf (0-5) 07/03/17 15:10 Ur Epithelial Cells NONE SEEN /lpf (FEW) 07/03/17 15:10 Urine Bacteria NONE SEEN /hpf (NONE SEEN) 07/03/17 15:10 Vancomycin Trough 10.7 ug/mL (10-20) 07/06/17 06:20 - Physical Exam Vitals and I&O: Vital Signs Temp 97.0 F 07/06/17 08:00 Pulse 93 07/06/17 08:00 Resp 18 07/06/17 08:00 BP 117/73 07/06/17 08:00 Pulse Ox 96 07/06/17 08:00 Intake & Output 07/05/17 07/06/17 07/06/17 18:59 06:59 18:59 Intake Total 350 50 120 Output Total 1 Balance 350 49 120 Weight (lbs) 96.57 kg 96.57 kg Intake: Intake, IV Amount 350 Piperacillin Sodium/ 100 Tazobact 4.5 gm In Sodium Chloride 0.9% 100 ml @ 100 mls/hr IV Q8HR [facility] Rx #:[id number] Vancomycin HCl 1.25 gm In 250 Sodium Chloride 0.9% 250 ml @ 165 mls/hr IV Q24H [facility] Rx#:[id number] Oral 50 120 Output: Stool 1 Other: # Voids 1 Stool Characteristics Formed Formed Active Medications: Current Medications Vancomycin HCl 1.5 gm/ Sodium (Chloride) 500 mls @ 250 mls/hr IV Q24H [facility] Stop: 09/05/17 04:59 Lactic Acid (Lac-Hydrin Cream) 1 appl TP Q12HR [facility] Stop: 08/30/17 20:59 Last Admin: 07/06/17 10:06 Dose: 1 appl Lactobacillus Rhamnosus (Culturelle 15b) 1 each PO DAILY [facility] Stop: 09/04/17 13:59 Miscellaneous (Vancomycin Iv Per Pharmacy) 1 ea PRN PRN PRN Reason: PROTOCOL Stop: 08/29/17 03:35 Miscellaneous (Vte Chemical Prophylaxis Screen/ Admission) 1 ea PRN PRN PRN Reason: PROTOCOL Stop: 08/29/17 11:16 Miscellaneous (Probiotic Screen) 1 ea MC PRN PRN PRN Reason: PROTOCOL Stop: 09/04/17 12:44 Morphine Sulfate (Morphine) 1 mg IV Q4H PRN PRN Reason: Pain (Moderate) Stop: 08/29/17 03:44 Morphine Sulfate (Morphine) 2 mg IV Q4H PRN PRN Reason: Pain (Severe) Stop: 08/29/17 03:44 Mupirocin (Bactroban Oint) 1 appl TP Q12HR [facility] Stop: 07/06/17 20:59 Last Admin: 07/06/17 10:06 Dose: 1 appl Nystatin (Nystop) 0 units TP Q12HR [facility] Stop: 08/30/17 20:59 Last Admin: 07/06/17 10:06 Dose: 100,000 units Ondansetron HCl (Zofran) 4 mg IV Q4H PRN PRN Reason: Nausea Stop: 08/29/17 03:44 General: no acute distress, well developed, well nourished HEENT: atraumatic, normocephalic, PERRLA Neck: supple, no thyromegaly, no lymphadenopathy Cardiovascular: S1S2, regular Lungs: clear to auscultation bilaterally, clear to percussion Abdomen: soft, no tender, no distended, no mass Extremities: edema, other (redness of legs better), no cyanosis, no clubbing Neurological: awake, alert, oriented - Procedures Procedures: Procedures Procedure Code Date INSERTION OF INFUSION DEV INTO SUP VENA CAVA, PERC APPROACH [id number] 01/06/17 Infectious Disease Assmt/Plan - Assessment Assessment: 1. Bilateral lower extremity cellulitis and swelling, rule out deep vein thrombosis, rule out arterial insufficiency. 2. Abdominal wall cellulitis, secondary infection on Tinea cruris. 3. Obesity. 4. Cerebrovascular accident. 5. Tinea Cruris. - Plan Plan: Continue vancomycin for 10 days. Apply some moisturizer cream like Lac-Hydrin cream and apply Lotrisone to groins and lower abdomen. Nutritional Asmnt/Malnutr-PDOC - Dietary Evaluation Malnutrition Findings (Please click <Entered> for more info): Nutritional Asmnt/Malnutrition Start: 06/30/17 09: 06 Text: Status: Complete Freq: Document 06/30/17 09:14 [email or web address] (Rec: 06/30/17 09:25 [email or web address]) Nutritional Asmnt/Malnutrition Patient General Information Nutritional Screening Consult Diagnosis bilateral lower extremity cellulitis Pertinent Medical Hx/Surgical Hx brain surgery, foot surgery, CVA Subjective Information Pt sleeping during visit. Mumbled somewhat in her sleep, but did not awaken to name being called multiple times. No PO intake recorded since admit (only 1 meal served). Current Diet Order/ Nutrition Support regular Patient / S.O Not Indicated Pertinent Medications reviewed Pertinent Labs BUN: 40 Nutritional Hx/Data Height 1.68 m Height (Calculated Centimeters) 167.6 Current Weight (lbs) 96.615 kg Weight (Calculated Kilograms) 96.6 Weight (Calculated Grams) 87514.2 [place] Body Weight 130 lbs % [place] Body Weight 128 Body Mass Index (BMI) 34.3 Weight Status Obese GI Symptoms GI Symptoms None Last BM none since admit (<1 day) Difficult in: None Food Allergies No Usual diet at home unable to assess Skin Integrity/Comment: intact, cellulitis, nonpitting edema to BLE Estimated Nutritional Goals BEE in Kcals: Adj wt of IBW Calories/Kcals/Kg 25-30 Kcals Calculated 6288-6655 Protein: Adj wt of IBW Protein g/k.8-1 Protein Calculated 55-69 Fluid: ml 2911-1279 mL (1 ml/kcal) Nutritional Problem 1. Problem Problem inadequate oral intake Etiology sleepiness Signs/Symptoms: no recorded PO intake since admit Intervention/Recommendation Comments 1. Continue regular diet, if PO intake consistently <50% then recommend add supplement Expected Outcomes/Goals Expected Outcomes/Goals goal: PO intake >50% monitor wt, labs, skin, PO intake
[2017-07-06] MEDS: Lactobacillus Rhamnosus GG 15 Billion CFU CAP.SPRINK PO SCH (20:31)
[2017-07-07] MEDS ORDERED: Vancomycin HCl 1.5 GM in Sodium Chloride 0.9% 500 ML IV SCH (05:00)
[2017-07-07] MEDS: NYSTATIN 100000 UNITS/GM POWD TP SCH ×2 (08:53→21:04)
[2017-07-07] MEDS: Lactobacillus Rhamnosus GG 15 Billion CFU CAP.SPRINK PO SCH (08:53)
[2017-07-07] MEDS: Ammonium Lactate Cream 140 gm Tube TP SCH ×2 (08:53→21:04)
[2017-07-07 11:10] LABS: % BASOPHILS 0.4 % (0.0-2.0); % EOSINOPHILS 5.7 % (0.0-5.0); % LYMPHOCYTES 27.4 % (20.0-50.0); % MONOCYTES 6.8 % (2.0-10.0); % NEUTROPHILS 59.7 % (40.0-80.0); EOSINOPHILE ABSOLUTE 0.5 Th/cmm (0.1-0.4); HEMATOCRIT 39.8 % (41.0-60); HEMOGLOBIN 12.9 gm/dL (12-16); LYMPHOCYTE ABSOLUTE 2.6 Th/cmm (1.5-3.0); MEAN CELL VOLUME 84.7 fl (81-100); MEAN CORPUSCULAR HEMOGLOBIN 27.5 pg (27.0-31.0); MEAN CORPUSCULAR HGB CONC 32.4 pg (28.0-36.0); MONOCYTE ABSOLUTE 0.7 Th/cmm (0.3-1.0); NEUTROPHILE ABSOLUTE 5.8 Th/cmm (1.8-8.0); PLATELET COUNT 343 Th/cmm (150-400); RED CELL DISTRIBUTION WIDTH 13.9 % (11.5-20.0); WHITE BLOOD COUNT 9.6 Th/cmm (4.8-10.8)
[2017-07-07 11:40] LABS: ANION GAP 10.5 (7.0-16.0); BUN - UREA NITROGEN 23 mg/dL (7-25); CARBON DIOXIDE 26.2 mEq/L (21.0-31.0); CHLORIDE 107 mEq/L (98-107); CREATININE - SERUM 0.8 mg/dL (0.6-1.2); GLUCOSE 106 mg/dL (70-105); POTASSIUM SERUM 3.7 mEq/L (3.5-5.1); SODIUM SERUM 140 mEq/L (136-145)
--- NOTE | 2017-07-07 15:20 | General Progress Note ---
Subjective - Review of Systems Events since last encounter: no fever no change Objective - Results Result Diagrams: 07/07/17 11:00 07/07/17 11:00 Recent Labs: Laboratory Last Values WBC 9.6 Th/cmm (4.8-10.8) 07/07/17 11:00 RBC 4.70 Mil/cmm (3.80-5.20) 07/07/17 11:00 Hgb 12.9 gm/dL (12-16) 07/07/17 11:00 Hct 39.8 % (41.0-60) L 07/07/17 11:00 MCV 84.7 fl (81-100) 07/07/17 11:00 MCH 27.5 pg (27.0-31.0) 07/07/17 11:00 MCHC Differential 32.4 pg (28.0-36.0) 07/07/17 11:00 RDW 13.9 % (11.5-20.0) 07/07/17 11:00 Plt Count 343 Th/cmm (150-400) 07/07/17 11:00 MPV 8.0 fl 07/07/17 11:00 Neutrophils % 59.7 % (40.0-80.0) 07/07/17 11:00 Lymphocytes % 27.4 % (20.0-50.0) 07/07/17 11:00 Monocytes % 6.8 % (2.0-10.0) 07/07/17 11:00 Eosinophils % 5.7 % (0.0-5.0) H 07/07/17 11:00 Basophils % 0.4 % (0.0-2.0) 07/07/17 11:00 Sodium 140 mEq/L (136-145) 07/07/17 11:00 Potassium 3.7 mEq/L (3.5-5.1) 07/07/17 11:00 Chloride 107 mEq/L (98-107) 07/07/17 11:00 Carbon Dioxide 26.2 mEq/L (21.0-31.0) 07/07/17 11:00 Anion Gap 10.5 (7.0-16.0) 07/07/17 11:00 BUN 23 mg/dL (7-25) 07/07/17 11:00 Creatinine 0.8 mg/dL (0.6-1.2) 07/07/17 11:00 Est GFR ( Amer) TNP 07/07/17 11:00 Est GFR (Non-Af Amer) TNP 07/07/17 11:00 BUN/Creatinine Ratio 28.8 07/07/17 11:00 Glucose 106 mg/dL (70-105) H 07/07/17 11:00 POC Glucose 94 MG/DL (70 - 105) 06/30/17 07:24 Calcium 9.0 mg/dL (8.6-10.3) 07/07/17 11:00 Total Bilirubin 0.3 mg/dL (0.3-1.0) 06/30/17 01:45 AST 15 U/L (13-39) 06/30/17 01:45 ALT 15 U/L (7-52) 06/30/17 01:45 Alkaline Phosphatase 104 U/L (34-104) 06/30/17 01:45 Total Protein 8.7 gm/dL (6.0-8.3) H 06/30/17 01:45 Albumin 4.0 gm/dL (3.7-5.3) 06/30/17 01:45 Globulin 4.7 gm/dL 06/30/17 01:45 Albumin/Globulin Ratio 0.9 (1.0-1.8) L 06/30/17 01:45 Urine Source RANDOM 07/03/17 15:10 Urine Color YELLOW 07/03/17 15:10 Urine Clarity CLEAR (CLEAR) 07/03/17 15:10 Urine pH 7.0 (4.6 - 8.0) 07/03/17 15:10 Ur Specific [place] 1.020 (1.005-1.030) 07/03/17 15:10 Urine Protein NEGATIVE mg/dL (NEGATIVE) 07/03/17 15:10 Urine Glucose (UA) NEGATIVE mg/dL (NEGATIVE) 07/03/17 15:10 Urine Ketones NEGATIVE mg/dL (NEGATIVE) 07/03/17 15:10 Urine Blood NEGATIVE (NEGATIVE) 07/03/17 15:10 Urine Nitrate NEGATIVE (NEGATIVE) 07/03/17 15:10 Urine Bilirubin NEGATIVE (NEGATIVE) 07/03/17 15:10 Urine Urobilinogen 0.2 E.U./dL (0.2 - 1.0) 07/03/17 15:10 Ur Leukocyte Esterase NEGATIVE (NEGATIVE) 07/03/17 15:10 Urine RBC NONE SEEN /hpf (0-5) 07/03/17 15:10 Urine WBC NONE SEEN /hpf (0-5) 07/03/17 15:10 Ur Epithelial Cells NONE SEEN /lpf (FEW) 07/03/17 15:10 Urine Bacteria NONE SEEN /hpf (NONE SEEN) 07/03/17 15:10 Vancomycin Trough 10.7 ug/mL (10-20) 07/06/17 06:20 - Physical Exam Vitals and I&O: Vital Signs Temp 97.7 F 07/07/17 13:15 Pulse 88 07/07/17 13:15 Resp 18 07/07/17 13:15 BP 112/63 07/07/17 13:15 Pulse Ox 92 07/07/17 13:15 Intake & Output 07/06/17 07/07/17 07/07/17 18:59 06:59 18:59 Intake Total 120 50 Balance 120 50 Weight (lbs) 96.57 kg 96.388 kg Intake: Oral 120 50 Other: # Voids 2 # Bowel Movements 0 Active Medications: Current Medications Vancomycin HCl 1.5 gm/ Sodium (Chloride) 500 mls @ 250 mls/hr IV Q24H [facility] Stop: 09/06/17 08:59 Lactic Acid (Lac-Hydrin Cream) 1 appl TP Q12HR [facility] Stop: 08/30/17 20:59 Last Admin: 07/07/17 08:53 Dose: 1 appl Lactobacillus Rhamnosus (Culturelle 15b) 1 each PO DAILY [facility] Stop: 09/04/17 13:59 Last Admin: 07/07/17 08:53 Dose: 1 each Miscellaneous (Vancomycin Iv Per Pharmacy) 1 ea MC PRN PRN PRN Reason: PROTOCOL Stop: 08/29/17 03:35 Miscellaneous (Vte Chemical Prophylaxis Screen/ Admission) 1 ea MC PRN PRN PRN Reason: PROTOCOL Stop: 08/29/17 11:16 Miscellaneous (Probiotic Screen) 1 ea MC PRN PRN PRN Reason: PROTOCOL Stop: 09/04/17 12:44 Morphine Sulfate (Morphine) 1 mg IV Q4H PRN PRN Reason: Pain (Moderate) Stop: 08/29/17 03:44 Morphine Sulfate (Morphine) 2 mg IV Q4H PRN PRN Reason: Pain (Severe) Stop: 08/29/17 03:44 Nystatin (Nystop) 0 units TP Q12HR [facility] Stop: 08/30/17 20:59 Last Admin: 07/07/17 08:53 Dose: 100,000 units Ondansetron HCl (Zofran) 4 mg IV Q4H PRN PRN Reason: Nausea Stop: 08/29/17 03:44 - Procedures Procedures: Procedures Procedure Code Date INSERTION OF INFUSION DEV INTO SUP VENA CAVA, PERC APPROACH [id number] 01/06/17 Nutritional Asmnt/Malnutr-PDOC - Dietary Evaluation Malnutrition Findings (Please click <Entered> for more info): Nutritional Asmnt/Malnutrition Start: 06/30/17 09: 06 Text: Status: Complete Freq: Document 06/30/17 09:14 [email or web address] (Rec: 06/30/17 09:25 [email or web address]) Nutritional Asmnt/Malnutrition Patient General Information Nutritional Screening Consult Diagnosis bilateral lower extremity cellulitis Pertinent Medical Hx/Surgical Hx brain surgery, foot surgery, CVA Subjective Information Pt sleeping during visit. Mumbled somewhat in her sleep, but did not awaken to name being called multiple times. No PO intake recorded since admit (only 1 meal served). Current Diet Order/ Nutrition Support regular Patient / S.O Not Indicated Pertinent Medications reviewed Pertinent Labs BUN: 40 Nutritional Hx/Data Height 1.68 m Height (Calculated Centimeters) 167.6 Current Weight (lbs) 96.615 kg Weight (Calculated Kilograms) 96.6 Weight (Calculated Grams) 91347.2 [place] Body Weight 130 lbs % [place] Body Weight 128 Body Mass Index (BMI) 34.3 Weight Status Obese GI Symptoms GI Symptoms None Last BM none since admit (<1 day) Difficult in: None Food Allergies No Usual diet at home unable to assess Skin Integrity/Comment: intact, cellulitis, nonpitting edema to BLE Estimated Nutritional Goals BEE in Kcals: Adj wt of IBW Calories/Kcals/Kg 25-30 Kcals Calculated 2756-2760 Protein: Adj wt of IBW Protein g/k.8-1 Protein Calculated 55-69 Fluid: ml 3939-5402 mL (1 ml/kcal) Nutritional Problem 1. Problem Problem inadequate oral intake Etiology sleepiness Signs/Symptoms: no recorded PO intake since admit Intervention/Recommendation Comments 1. Continue regular diet, if PO intake consistently <50% then recommend add supplement Expected Outcomes/Goals Expected Outcomes/Goals goal: PO intake >50% monitor wt, labs, skin, PO intake
[2017-07-08 06:17] LABS: % EOSINOPHILS 3.1 % (0.0-5.0); % LYMPHOCYTES 26.6 % (20.0-50.0); % MONOCYTES 6.4 % (2.0-10.0); % NEUTROPHILS 62.9 % (40.0-80.0); BASOPHILE ABSOLUTE 0.1 Th/cumm (0-0.2); EOSINOPHILE ABSOLUTE 0.3 Th/cmm (0.1-0.4); HEMATOCRIT 41.4 % (41.0-60); HEMOGLOBIN 13.4 gm/dL (12-16); LYMPHOCYTE ABSOLUTE 2.9 Th/cmm (1.5-3.0); MEAN CELL VOLUME 85.2 fl (81-100); MEAN CORPUSCULAR HEMOGLOBIN 27.6 pg (27.0-31.0); MEAN CORPUSCULAR HGB CONC 32.4 pg (28.0-36.0); MEAN PLATELET VOLUME 8.7 fl; MONOCYTE ABSOLUTE 0.7 Th/cmm (0.3-1.0); NEUTROPHILE ABSOLUTE 6.8 Th/cmm (1.8-8.0); PLATELET COUNT 368 Th/cmm (150-400); RED BLOOD COUNT 4.86 Mil/cmm (3.80-5.20); RED CELL DISTRIBUTION WIDTH 13.8 % (11.5-20.0); WHITE BLOOD COUNT 10.8 Th/cmm (4.8-10.8)
[2017-07-08 07:01] LABS: ANION GAP 9.4 (7.0-16.0); BUN - UREA NITROGEN 27 mg/dL (7-25); CALCIUM SERUM 9.4 mg/dL (8.6-10.3); CARBON DIOXIDE 24.6 mEq/L (21.0-31.0); CHLORIDE 105 mEq/L (98-107); CREATININE - SERUM 0.8 mg/dL (0.6-1.2); GLUCOSE 93 mg/dL (70-105); SODIUM SERUM 135 mEq/L (136-145)
[2017-07-08] MEDS ORDERED: Vancomycin HCl 1.5 GM in Sodium Chloride 0.9% 500 ML IV SCH (09:00)
[2017-07-08] MEDS: NYSTATIN 100000 UNITS/GM POWD TP SCH (09:36)
[2017-07-08] MEDS: Lactobacillus Rhamnosus GG 15 Billion CFU CAP.SPRINK PO SCH (09:36)
[2017-07-08] MEDS: Ammonium Lactate Cream 140 gm Tube TP SCH (09:36)
--- NOTE | 2017-07-08 13:38 | Internal Medicine Prog Note ---
Internal Medicine Subjective - Subjective Service Date: 07/08/17 Patient seen and examined:: with staff Patient is:: awake, verbal Per staff patient has:: tolerating meds Internal Medicine Objective - Results Result Diagrams: 07/08/17 05:45 07/08/17 05:45 Recent Labs: Laboratory Last Values WBC 10.8 Th/cmm (4.8-10.8) 07/08/17 05:45 RBC 4.86 Mil/cmm (3.80-5.20) 07/08/17 05:45 Hgb 13.4 gm/dL (12-16) 07/08/17 05:45 Hct 41.4 % (41.0-60) 07/08/17 05:45 MCV 85.2 fl (81-100) 07/08/17 05:45 MCH 27.6 pg (27.0-31.0) 07/08/17 05:45 MCHC Differential 32.4 pg (28.0-36.0) 07/08/17 05:45 RDW 13.8 % (11.5-20.0) 07/08/17 05:45 Plt Count 368 Th/cmm (150-400) 07/08/17 05:45 MPV 8.7 fl 07/08/17 05:45 Neutrophils % 62.9 % (40.0-80.0) 07/08/17 05:45 Lymphocytes % 26.6 % (20.0-50.0) 07/08/17 05:45 Monocytes % 6.4 % (2.0-10.0) 07/08/17 05:45 Eosinophils % 3.1 % (0.0-5.0) 07/08/17 05:45 Basophils % 1.0 % (0.0-2.0) 07/08/17 05:45 Sodium 135 mEq/L (136-145) L 07/08/17 05:45 Potassium 4.0 mEq/L (3.5-5.1) 07/08/17 05:45 Chloride 105 mEq/L (98-107) 07/08/17 05:45 Carbon Dioxide 24.6 mEq/L (21.0-31.0) 07/08/17 05:45 Anion Gap 9.4 (7.0-16.0) 07/08/17 05:45 BUN 27 mg/dL (7-25) H 07/08/17 05:45 Creatinine 0.8 mg/dL (0.6-1.2) 07/08/17 05:45 Est GFR ( Amer) TNP 07/08/17 05:45 Est GFR (Non-Af Amer) TNP 07/08/17 05:45 BUN/Creatinine Ratio 33.8 07/08/17 05:45 Glucose 93 mg/dL (70-105) 07/08/17 05:45 POC Glucose 94 MG/DL (70 - 105) 06/30/17 07:24 Calcium 9.4 mg/dL (8.6-10.3) 07/08/17 05:45 Total Bilirubin 0.3 mg/dL (0.3-1.0) 06/30/17 01:45 AST 15 U/L (13-39) 06/30/17 01:45 ALT 15 U/L (7-52) 06/30/17 01:45 Alkaline Phosphatase 104 U/L (34-104) 06/30/17 01:45 Total Protein 8.7 gm/dL (6.0-8.3) H 06/30/17 01:45 Albumin 4.0 gm/dL (3.7-5.3) 06/30/17 01:45 Globulin 4.7 gm/dL 06/30/17 01:45 Albumin/Globulin Ratio 0.9 (1.0-1.8) L 06/30/17 01:45 Urine Source RANDOM 07/03/17 15:10 Urine Color YELLOW 07/03/17 15:10 Urine Clarity CLEAR (CLEAR) 07/03/17 15:10 Urine pH 7.0 (4.6 - 8.0) 07/03/17 15:10 Ur Specific [place] 1.020 (1.005-1.030) 07/03/17 15:10 Urine Protein NEGATIVE mg/dL (NEGATIVE) 07/03/17 15:10 Urine Glucose (UA) NEGATIVE mg/dL (NEGATIVE) 07/03/17 15:10 Urine Ketones NEGATIVE mg/dL (NEGATIVE) 07/03/17 15:10 Urine Blood NEGATIVE (NEGATIVE) 07/03/17 15:10 Urine Nitrate NEGATIVE (NEGATIVE) 07/03/17 15:10 Urine Bilirubin NEGATIVE (NEGATIVE) 07/03/17 15:10 Urine Urobilinogen 0.2 E.U./dL (0.2 - 1.0) 07/03/17 15:10 Ur Leukocyte Esterase NEGATIVE (NEGATIVE) 07/03/17 15:10 Urine RBC NONE SEEN /hpf (0-5) 07/03/17 15:10 Urine WBC NONE SEEN /hpf (0-5) 07/03/17 15:10 Ur Epithelial Cells NONE SEEN /lpf (FEW) 07/03/17 15:10 Urine Bacteria NONE SEEN /hpf (NONE SEEN) 07/03/17 15:10 Vancomycin Trough 11.2 ug/mL (10-20) 07/08/17 08:00 - Physical Exam Vitals and I&O: Vital Signs Temp 97.5 F 07/08/17 12:00 Pulse 88 07/08/17 12:00 Resp 19 07/08/17 12:00 BP 142/80 07/08/17 12:00 Pulse Ox 94 07/08/17 12:00 Intake & Output 07/07/17 07/08/17 07/08/17 18:59 06:59 18:59 Intake Total 450 200 Balance 450 200 Weight (lbs) 212 lb 8 oz 212 lb 9 oz Intake: Oral 450 200 Other: # Voids 3 2 # Bowel Movements 1 1 Stool Characteristics Soft Soft Formed Formed Brown Brown Active Medications: Current Medications Vancomycin HCl 1.5 gm/ Sodium (Chloride) 500 mls @ 250 mls/hr IV Q24H [facility] Stop: 09/06/17 08:59 Last Admin: 07/08/17 09:36 Dose: 250 mls/hr Lactic Acid (Lac-Hydrin Cream) 1 appl TP Q12HR [facility] Stop: 08/30/17 20:59 Last Admin: 07/08/17 09:36 Dose: 1 appl Lactobacillus Rhamnosus (Culturelle 15b) 1 each PO DAILY [facility] Stop: 09/04/17 13:59 Last Admin: 07/08/17 09:36 Dose: 1 each Miscellaneous (Vancomycin Iv Per Pharmacy) 1 ea PRN PRN PRN Reason: PROTOCOL Stop: 08/29/17 03:35 Miscellaneous (Vte Chemical Prophylaxis Screen/ Admission) 1 ea PRN PRN PRN Reason: PROTOCOL Stop: 08/29/17 11:16 Miscellaneous (Probiotic Screen) 1 ea PRN PRN PRN Reason: PROTOCOL Stop: 09/04/17 12:44 Morphine Sulfate (Morphine) 1 mg IV Q4H PRN PRN Reason: Pain (Moderate) Stop: 08/29/17 03:44 Morphine Sulfate (Morphine) 2 mg IV Q4H PRN PRN Reason: Pain (Severe) Stop: 08/29/17 03:44 Last Admin: 07/08/17 06:43 Dose: 2 mg Nystatin (Nystop) 0 units TP Q12HR [facility] Stop: 08/30/17 20:59 Last Admin: 07/08/17 09:36 Dose: 100,000 units Ondansetron HCl (Zofran) 4 mg IV Q4H PRN PRN Reason: Nausea Stop: 08/29/17 03:44 General: alert HEENT: NC/AT, PERRLA Neck: Supple Lungs: CTAB Cardiovascular: RRR, Normal S1, Normal S2, without murmur Abdomen: soft, non-tender, non-distended, positive bowel sound - Procedures Procedures: Procedures Procedure Code Date INSERTION OF INFUSION DEV INTO SUP VENA CAVA, PERC APPROACH [id number] 01/06/17 Internal Medicine Assmt/Plan - Assessment Assessment: cellulitis bilateral lower limbs hx cva - Plan Plan: ivabx as per id cbc/bmp in am continue current orders Nutritional Asmnt/Malnutr-PDOC - Dietary Evaluation Malnutrition Findings (Please click <Entered> for more info): Nutritional Asmnt/Malnutrition Start: 06/30/17 09: 06 Text: Status: Complete Freq: Document 06/30/17 09:14 [email or web address] (Rec: 06/30/17 09:25 [email or web address] [id number]) Nutritional Asmnt/Malnutrition Patient General Information Nutritional Screening Consult Diagnosis bilateral lower extremity cellulitis Pertinent Medical Hx/Surgical Hx brain surgery, foot surgery, CVA Subjective Information Pt sleeping during visit. Mumbled somewhat in her sleep, but did not awaken to name being called multiple times. No PO intake recorded since admit (only 1 meal served). Current Diet Order/ Nutrition Support regular Patient / S.O Not Indicated Pertinent Medications reviewed Pertinent Labs BUN: 40 Nutritional Hx/Data Height 5 ft 6 in Height (Calculated Centimeters) 167.6 Current Weight (lbs) 213 lb Weight (Calculated Kilograms) 96.6 Weight (Calculated Grams) 64407.2 [place] Body Weight 130 lbs % [place] Body Weight 128 Body Mass Index (BMI) 34.3 Weight Status Obese GI Symptoms GI Symptoms None Last BM none since admit (<1 day) Difficult in: None Food Allergies No Usual diet at home unable to assess Skin Integrity/Comment: intact, cellulitis, nonpitting edema to BLE Estimated Nutritional Goals BEE in Kcals: Adj wt of IBW Calories/Kcals/Kg 25-30 Kcals Calculated 5480-1109 Protein: Adj wt of IBW Protein g/k.8-1 Protein Calculated 55-69 Fluid: ml 0742-9184 mL (1 ml/kcal) Nutritional Problem 1. Problem Problem inadequate oral intake Etiology sleepiness Signs/Symptoms: no recorded PO intake since admit Intervention/Recommendation Comments 1. Continue regular diet, if PO intake consistently <50% then recommend add supplement Expected Outcomes/Goals Expected Outcomes/Goals goal: PO intake >50% monitor wt, labs, skin, PO intake
--- NOTE | 2017-07-16 21:37 | Discharge Summary ---
DATE OF DISCHARGE: 07/08/2017 This 72-year-old female patient, known to have history of swelling and redness and bilateral leg swelling. It was extremely angry looking, she was unable to walk, and the patient was admitted. Admitting diagnosis: Severe cellulitis, bilateral lower leg, history of CVA in the past, history of cellulitis in the past, history of obesity, history of COPD was made. The patient was given IV antibiotics and physical therapy and local wound care and the patient gradually improved. The patient was in stable condition on 07/08/2017 with a diagnosis of improving cellulitis, IV antibiotics for home was arranged for 10 days, and the patient was advised to come and follow up with me in a week. The patient's condition at time of discharge was stable. A 2-gram sodium diet. Activity as tolerated. [facility]# [id number]
== END 2017-07-08 21:00 | disposition home or self-care (01) | DRG 603 ==
LOC: ER 00:07 → MSI 03:35 → TELE 07-01 17:59 → MSI 07-03 06:40
PROVIDERS: ADMIT Internal Medicine; ATTEND Internal Medicine
DX: L03.116 Cellulitis of left lower limb (principal); L03.311 Cellulitis of abdominal wall; F03.90 Unspecified dementia, unspecified severity, without behavioral disturbance, psychotic disturbance, mood disturbance, and anxiety; E66.9 Obesity, unspecified; B35.6 Tinea cruris; F17.200 Nicotine dependence, unspecified, uncomplicated; L03.115 Cellulitis of right lower limb; Z68.34 Body mass index [BMI] 34.0-34.9, adult; Z86.73 Personal history of transient ischemic attack (TIA), and cerebral infarction without residual deficits
CPT/HCPCS: 36415-UA; 71045-TC; 80048-TC; 80053-TC; 80202-TC; 81001-TC; 82948-90; 85025-TC; 87070-90; 87086-90; 93005; 93925-TC; 93970-TC-50; 94760; 96374; 96375; J0696; J1170; J2270; J2543; J3370; J7040; X3904; Z7610

== ENCOUNTER 2017-07-28 23:45 | Inpatient (IN) | payer MEDICARE ==
--- NOTE | 2017-07-29 00:24 | ED Physician Chart ---
ED Chief Complaint/HPI - Patient Information Date Seen:: 07/29/17 Time Seen:: 00:23 Chief Complaint:: BLE cellulitis History of Present Illness:: 72 yo female had bilateral lower extremities cellulitis for 1 month. She was hospitalized for 10 days and was discharged 20 days ago. She received Vancomycin and Zosyn by home health for 10 days. The swelling, burning and erythema persisted for 20 days. She also had difficulty standing and walking. Allergies:: Allergies Allergy/AdvReac Type Severity Reaction Status Date / Time No Known Allergies Allergy Verified 07/29/17 00:11 Vitals:: Vital Signs - 8 hr 07/29/17 00:00 Temp 97.6 F HR 88 RR 16 BP 122/86 O2 Sat % 96 ED Review of Systems - Review of Systems General/Constitutional: No fever Skin: Skin lesions Head: No headache Eyes: No pain ENT: No earache Neck: No neck pain Cardio Vascular: No chest pain Pulmonary: No SOB GI: No nausea, No vomiting Musculoskeletal: Bone or joint pain Neurological: No syncope, No focal symptoms ED Past Medical History - Past Medical History Social History: Smoker, No Alcohol, Illicit Drug Use (marijuana) Surgical History: other (Craniotomy for intracranial aneurysm, 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 ED Assessment - Assessment General Assessment: Bilateral lower extremities cellulitis Assessment/Comments:: CBC, CMP Levaquin NS 1L IV bolus ED Septic Shock - <6hrs of presentation: Vital Signs: Vital Signs - 8 hr 07/29/17 00:00 Temp 97.6 F HR 88 RR 16 BP 122/86 O2 Sat % 96
[2017-07-29 00:47] LABS: NEUTROPHILE ABSOLUTE 5.2 Th/cmm (1.8-8.0); WHITE BLOOD COUNT 8.9 Th/cmm (4.8-10.8)
[2017-07-29 00:49] LABS: % BASOPHILS 0.8 % (0.0-2.0); % EOSINOPHILS 7.7 % (0.0-5.0); % LYMPHOCYTES 27.4 % (20.0-50.0); % MONOCYTES 5.9 % (2.0-10.0); % NEUTROPHILS 58.2 % (40.0-80.0); BASOPHILE ABSOLUTE 0.1 Th/cumm (0-0.2); EOSINOPHILE ABSOLUTE 0.7 Th/cmm (0.1-0.4); HEMATOCRIT 37.8 % (41.0-60); HEMOGLOBIN 12.8 gm/dL (12-16); LYMPHOCYTE ABSOLUTE 2.4 Th/cmm (1.5-3.0); MEAN CELL VOLUME 84.8 fl (81-100); MEAN CORPUSCULAR HEMOGLOBIN 28.6 pg (27.0-31.0); MEAN CORPUSCULAR HGB CONC 33.7 pg (28.0-36.0); MEAN PLATELET VOLUME 8.7 fl; MONOCYTE ABSOLUTE 0.5 Th/cmm (0.3-1.0); PLATELET COUNT 305 Th/cmm (150-400); RED BLOOD COUNT 4.46 Mil/cmm (3.80-5.20); RED CELL DISTRIBUTION WIDTH 14.4 % (11.5-20.0)
[2017-07-29 01:03] LABS: ALB/GLOB RATIO 0.8 (1.0-1.8); ALBUMIN 3.4 gm/dL (3.7-5.3); ANION GAP 9.2 (7.0-16.0); BILIRUBIN,TOTAL 0.3 mg/dL (0.3-1.0); BUN - UREA NITROGEN 30 mg/dL (7-25); CALCIUM SERUM 9.7 mg/dL (8.6-10.3); CARBON DIOXIDE 24.2 mEq/L (21.0-31.0); CHLORIDE 108 mEq/L (98-107); GLUCOSE 108 mg/dL (70-105); POTASSIUM SERUM 4.4 mEq/L (3.5-5.1); SGOT 13 U/L (13-39); SGPT/ALT 12 U/L (7-52); SODIUM SERUM 137 mEq/L (136-145); TOTAL PROTEIN,SERUM 7.5 gm/dL (6.0-8.3)
[2017-07-29] MEDS ORDERED: Levofloxacin 500mg/100mL 500 MG/100 ML BAG IV ONE ×2 (01:25→01:38)
[2017-07-29] MEDS ORDERED: Sodium Chloride 0.9% 1,000 ML IV ONE (01:27)
[2017-07-29] MEDS ORDERED: Piperacillin Sodium/Tazobact 3.375 gm Vial IV ONE (02:23)
[2017-07-29 05:25] VITALS: BP 133/95
[2017-07-29] MEDS ORDERED: Pneumococcal Vaccine 0.5 mL Vial IM ONE (05:36)
[2017-07-29 06:12] LABS: % BASOPHILS 0.8 % (0.0-2.0); % EOSINOPHILS 6.7 % (0.0-5.0); % MONOCYTES 8.3 % (2.0-10.0); % NEUTROPHILS 56.2 % (40.0-80.0); BASOPHILE ABSOLUTE 0.1 Th/cumm (0-0.2); EOSINOPHILE ABSOLUTE 0.6 Th/cmm (0.1-0.4); HEMATOCRIT 38.1 % (41.0-60); HEMOGLOBIN 12.5 gm/dL (12-16); LYMPHOCYTE ABSOLUTE 2.6 Th/cmm (1.5-3.0); MEAN CELL VOLUME 85.3 fl (81-100); MEAN CORPUSCULAR HGB CONC 32.9 pg (28.0-36.0); MEAN PLATELET VOLUME 8.7 fl; MONOCYTE ABSOLUTE 0.8 Th/cmm (0.3-1.0); NEUTROPHILE ABSOLUTE 5.3 Th/cmm (1.8-8.0); PLATELET COUNT 302 Th/cmm (150-400); RED BLOOD COUNT 4.47 Mil/cmm (3.80-5.20); RED CELL DISTRIBUTION WIDTH 14.4 % (11.5-20.0); WHITE BLOOD COUNT 9.4 Th/cmm (4.8-10.8)
[2017-07-29 06:27] LABS: ANION GAP 8.2 (7.0-16.0); BUN - UREA NITROGEN 29 mg/dL (7-25); CALCIUM SERUM 9.3 mg/dL (8.6-10.3); CARBON DIOXIDE 26.5 mEq/L (21.0-31.0); CHLORIDE 104 mEq/L (98-107); CHOLESTEROL 145 mg/dL (<200); GLUCOSE 101 mg/dL (70-105); HDL -HIGH DENSITY LIPOPROTEIN 41 mg/dL (23-92); POTASSIUM SERUM 3.7 mEq/L (3.5-5.1); SODIUM SERUM 135 mEq/L (136-145); TRIGLYCERIDES 184 mg/dL (<150)
[2017-07-29] MEDS ORDERED: Influenza Vaccine 0.5 mL Syr IM ONE (10:00)
--- NOTE | 2017-07-29 16:58 | Internal Medicine Prog Note ---
Internal Medicine Subjective - Subjective Patient is:: awake Per staff patient has:: no adverse event Internal Medicine Objective - Results Result Diagrams: 07/29/17 05:36 07/29/17 05:36 Recent Labs: Laboratory Last Values WBC 9.4 Th/cmm (4.8-10.8) 07/29/17 05:36 RBC 4.47 Mil/cmm (3.80-5.20) 07/29/17 05:36 Hgb 12.5 gm/dL (12-16) 07/29/17 05:36 Hct 38.1 % (41.0-60) L 07/29/17 05:36 MCV 85.3 fl (81-100) 07/29/17 05:36 MCH 28.0 pg (27.0-31.0) 07/29/17 05:36 MCHC Differential 32.9 pg (28.0-36.0) 07/29/17 05:36 RDW 14.4 % (11.5-20.0) 07/29/17 05:36 Plt Count 302 Th/cmm (150-400) 07/29/17 05:36 MPV 8.7 fl 07/29/17 05:36 Neutrophils % 56.2 % (40.0-80.0) 07/29/17 05:36 Lymphocytes % 28.0 % (20.0-50.0) 07/29/17 05:36 Monocytes % 8.3 % (2.0-10.0) 07/29/17 05:36 Eosinophils % 6.7 % (0.0-5.0) H 07/29/17 05:36 Basophils % 0.8 % (0.0-2.0) 07/29/17 05:36 Sodium 135 mEq/L (136-145) L 07/29/17 05:36 Potassium 3.7 mEq/L (3.5-5.1) 07/29/17 05:36 Chloride 104 mEq/L (98-107) 07/29/17 05:36 Carbon Dioxide 26.5 mEq/L (21.0-31.0) 07/29/17 05:36 Anion Gap 8.2 (7.0-16.0) 07/29/17 05:36 BUN 29 mg/dL (7-25) H 07/29/17 05:36 Creatinine 1.0 mg/dL (0.6-1.2) 07/29/17 05:36 Est GFR ( Amer) TNP 07/29/17 05:36 Est GFR (Non-Af Amer) TNP 07/29/17 05:36 BUN/Creatinine Ratio 29.0 07/29/17 05:36 Glucose 101 mg/dL (70-105) 07/29/17 05:36 Whole Bld Lactic Acid 1.60 mmol/L (0.60-1.99) 07/29/17 00:34 Calcium 9.3 mg/dL (8.6-10.3) 07/29/17 05:36 Total Bilirubin 0.3 mg/dL (0.3-1.0) 07/29/17 00:34 AST 13 U/L (13-39) 07/29/17 00:34 ALT 12 U/L (7-52) 07/29/17 00:34 Troponin I 0.02 ng/mL (0.01-0.05) 07/29/17 00:34 B-Natriuretic Peptide 791.0 pg/mL (5.0-100.0) H 07/29/17 00:34 Total Protein 7.5 gm/dL (6.0-8.3) 07/29/17 00:34 Albumin 3.4 gm/dL (3.7-5.3) L 07/29/17 00:34 Globulin 4.1 gm/dL 07/29/17 00:34 Albumin/Globulin Ratio 0.8 (1.0-1.8) L 07/29/17 00:34 Triglycerides 184 mg/dL (<150) H 07/29/17 05:36 Cholesterol 145 mg/dL (<200) 07/29/17 05:36 LDL Cholesterol Direct 88 mg/dL (75-193) 07/29/17 05:36 HDL Cholesterol 41 mg/dL (23-92) 07/29/17 05:36 TSH 2.28 uIU/ml (0.34-5.60) 07/29/17 05:36 - Physical Exam Vitals and I&O: Vital Signs Temp 97.1 F 07/29/17 16:00 Pulse 66 07/29/17 16:00 Resp 18 07/29/17 16:50 BP 142/78 07/29/17 16:00 Pulse Ox 94 07/29/17 16:00 Intake & Output 07/28/17 07/29/17 07/29/17 18:59 06:59 18:59 Intake Total 350 50 Output Total 0 Balance 350 50 Weight (lbs) 101.151 kg Intake: Intake, IV Amount 300 50 Piperacillin Sodium/ 50 50 Tazobact 3.375 gm In Sodium Chloride 0.9% 50 ml @ 100 mls/hr IV Q8H [facility] Rx#:[id number] Vancomycin HCl 1 gm In 250 Sodium Chloride 0.9% 250 ml @ 165 mls/hr IV Q24H [facility] Rx#:[id number] Oral 50 Output: Urine/Stool Mix 0 Other: # Voids 2 Stool Characteristics Soft Active Medications: Current Medications Furosemide (Lasix) 20 mg IVP DAILY [facility] Stop: 09/28/17 08:59 Piperacillin Sod/Tazobactam (Sod 3.375 gm/ Sodium Chloride) 50 mls @ 100 mls/ hr IV Q8H [facility] Stop: 09/27/17 02:59 Last Infusion: 07/29/17 11:14 Dose: Infused Vancomycin HCl 1.5 gm/ Sodium (Chloride) 500 mls @ 250 mls/hr IV Q24H [facility] Stop: 09/28/17 08:59 Miscellaneous (Vancomycin Iv Per Pharmacy) 1 ea [facility] DAILY [facility] Stop: 09/27/17 13:39 - Procedures Procedures: Procedures Procedure Code Date INSERTION OF INFUSION DEV INTO SUP VENA CAVA, PERC APPROACH 68UA03H 01/06/17 Nutritional Asmnt/Malnutr-PDOC - Dietary Evaluation Malnutrition Findings (Please click <Entered> for more info): Nutritional Asmnt/Malnutrition Start: 07/29/17 15: 23 Text: Status: Complete Freq: Document 07/29/17 15:23 LCHENG (Rec: 07/29/17 15:29 LCHENG [id number]) Nutritional Asmnt/Malnutrition Patient General Information Nutritional Screening High Risk Consult Diagnosis bilateral lower extremity cellulitis Pertinent Medical Hx/Surgical Hx no H&P, not able to obtain Per ER note, pt had bilateral lower extremity cellulitis a month ago. Subjective Information Consult received for low rodríguez score. Pt seen sitting in bed at time of visit, just finised 100% of lunch. Pt reported good appetite, not picky, likes the food provided . Current Diet Order/ Nutrition Support low sodiuam 2gm Pertinent Medications lasix, piperacillin, vancomycin Pertinent Labs 07/29 na 135, K 3.7, Cl 104, BUN 29, Cr 1.0, glucose 101, Ca 9.3 Nutritional Hx/Data Height 1.68 m Height (Calculated Centimeters) 167.6 Current Weight (lbs) 101.151 kg Weight (Calculated Kilograms) 101.2 Weight (Calculated Grams) 194157.1 [place] Body Weight 130 Body Mass Index (BMI) 35.9 Weight Status Obese GI Symptoms GI Symptoms None Last BM no record Difficult in: None Skin Integrity/Comment: both leg pitting edema 3+ rash to anterior vagina, left arm, abdomen, hand, anterior chest reddened to right/left leg Current %PO Good (75-100%) Estimated Nutritional Goals BEE in Kcals: Adj wt of IBW Calories/Kcals/Kg 25-30 Kcals Calculated 9221-7413 Protein: Adj wt of IBW Protein g/k-1.1 Protein Calculated 70-77 Fluid: ml 1750-2100ml (1ml/kcal) Nutritional Problem 1. Problem Problem increased nutrition needs ( protein) Etiology increased metabolic demand for healing Signs/Symptoms: biletaeral lower extremity cellulitis Intervention/Recommendation Comments 1. Continue with current diet as ordered. 2. Monitor PO intake, wt, labs and skin integrity 3. F/U as moderate risk in 3-5 days, 08/01-08/03 Expected Outcomes/Goals Expected Outcomes/Goals 1. PO intake to meet at least 75% of nutritional needs. 2. Wt stability, skin to remain intact, labs to approach WNL.
--- NOTE | 2017-07-29 16:59 | Internal Medicine Prog Note ---
Internal Medicine Objective - Results Result Diagrams: 07/29/17 05:36 07/29/17 05:36 Recent Labs: Laboratory Last Values WBC 9.4 Th/cmm (4.8-10.8) 07/29/17 05:36 RBC 4.47 Mil/cmm (3.80-5.20) 07/29/17 05:36 Hgb 12.5 gm/dL (12-16) 07/29/17 05:36 Hct 38.1 % (41.0-60) L 07/29/17 05:36 MCV 85.3 fl (81-100) 07/29/17 05:36 MCH 28.0 pg (27.0-31.0) 07/29/17 05:36 MCHC Differential 32.9 pg (28.0-36.0) 07/29/17 05:36 RDW 14.4 % (11.5-20.0) 07/29/17 05:36 Plt Count 302 Th/cmm (150-400) 07/29/17 05:36 MPV 8.7 fl 07/29/17 05:36 Neutrophils % 56.2 % (40.0-80.0) 07/29/17 05:36 Lymphocytes % 28.0 % (20.0-50.0) 07/29/17 05:36 Monocytes % 8.3 % (2.0-10.0) 07/29/17 05:36 Eosinophils % 6.7 % (0.0-5.0) H 07/29/17 05:36 Basophils % 0.8 % (0.0-2.0) 07/29/17 05:36 Sodium 135 mEq/L (136-145) L 07/29/17 05:36 Potassium 3.7 mEq/L (3.5-5.1) 07/29/17 05:36 Chloride 104 mEq/L (98-107) 07/29/17 05:36 Carbon Dioxide 26.5 mEq/L (21.0-31.0) 07/29/17 05:36 Anion Gap 8.2 (7.0-16.0) 07/29/17 05:36 BUN 29 mg/dL (7-25) H 07/29/17 05:36 Creatinine 1.0 mg/dL (0.6-1.2) 07/29/17 05:36 Est GFR ( Amer) TNP 07/29/17 05:36 Est GFR (Non-Af Amer) TNP 07/29/17 05:36 BUN/Creatinine Ratio 29.0 07/29/17 05:36 Glucose 101 mg/dL (70-105) 07/29/17 05:36 Whole Bld Lactic Acid 1.60 mmol/L (0.60-1.99) 07/29/17 00:34 Calcium 9.3 mg/dL (8.6-10.3) 07/29/17 05:36 Total Bilirubin 0.3 mg/dL (0.3-1.0) 07/29/17 00:34 AST 13 U/L (13-39) 07/29/17 00:34 ALT 12 U/L (7-52) 07/29/17 00:34 Troponin I 0.02 ng/mL (0.01-0.05) 07/29/17 00:34 B-Natriuretic Peptide 791.0 pg/mL (5.0-100.0) H 07/29/17 00:34 Total Protein 7.5 gm/dL (6.0-8.3) 07/29/17 00:34 Albumin 3.4 gm/dL (3.7-5.3) L 07/29/17 00:34 Globulin 4.1 gm/dL 07/29/17 00:34 Albumin/Globulin Ratio 0.8 (1.0-1.8) L 07/29/17 00:34 Triglycerides 184 mg/dL (<150) H 07/29/17 05:36 Cholesterol 145 mg/dL (<200) 07/29/17 05:36 LDL Cholesterol Direct 88 mg/dL (75-193) 07/29/17 05:36 HDL Cholesterol 41 mg/dL (23-92) 07/29/17 05:36 TSH 2.28 uIU/ml (0.34-5.60) 07/29/17 05:36 - Physical Exam Vitals and I&O: Vital Signs Temp 97.1 F 07/29/17 16:00 Pulse 66 07/29/17 16:00 Resp 18 07/29/17 16:50 BP 142/78 07/29/17 16:00 Pulse Ox 94 07/29/17 16:00 Intake & Output 07/28/17 07/29/17 07/29/17 18:59 06:59 18:59 Intake Total 350 50 Output Total 0 Balance 350 50 Weight (lbs) 101.151 kg Intake: Intake, IV Amount 300 50 Piperacillin Sodium/ 50 50 Tazobact 3.375 gm In Sodium Chloride 0.9% 50 ml @ 100 mls/hr IV Q8H [facility] Rx#:[id number] Vancomycin HCl 1 gm In 250 Sodium Chloride 0.9% 250 ml @ 165 mls/hr IV Q24H [facility] Rx#:[id number] Oral 50 Output: Urine/Stool Mix 0 Other: # Voids 2 Stool Characteristics Soft Active Medications: Current Medications Furosemide (Lasix) 20 mg IVP DAILY [facility] Stop: 09/28/17 08:59 Piperacillin Sod/Tazobactam (Sod 3.375 gm/ Sodium Chloride) 50 mls @ 100 mls/ hr IV Q8H [facility] Stop: 09/27/17 02:59 Last Infusion: 07/29/17 11:14 Dose: Infused Vancomycin HCl 1.5 gm/ Sodium (Chloride) 500 mls @ 250 mls/hr IV Q24H [facility] Stop: 09/28/17 08:59 Miscellaneous (Vancomycin Iv Per Pharmacy) 1 ea [facility] DAILY [facility] Stop: 09/27/17 13:39 - Procedures Procedures: Procedures Procedure Code Date INSERTION OF INFUSION DEV INTO SUP VENA CAVA, PERC APPROACH 74QR06H 01/06/17 Nutritional Asmnt/Malnutr-PDOC - Dietary Evaluation Malnutrition Findings (Please click <Entered> for more info): Nutritional Asmnt/Malnutrition Start: 07/29/17 15: 23 Text: Status: Complete Freq: Document 07/29/17 15:23 LCHENG (Rec: 07/29/17 15:29 LCHENG [id number]) Nutritional Asmnt/Malnutrition Patient General Information Nutritional Screening High Risk Consult Diagnosis bilateral lower extremity cellulitis Pertinent Medical Hx/Surgical Hx no H&P, not able to obtain Per ER note, pt had bilateral lower extremity cellulitis a month ago. Subjective Information Consult received for low rodríguez score. Pt seen sitting in bed at time of visit, just finised 100% of lunch. Pt reported good appetite, not picky, likes the food provided . Current Diet Order/ Nutrition Support low sodiuam 2gm Pertinent Medications lasix, piperacillin, vancomycin Pertinent Labs 07/29 na 135, K 3.7, Cl 104, BUN 29, Cr 1.0, glucose 101, Ca 9.3 Nutritional Hx/Data Height 1.68 m Height (Calculated Centimeters) 167.6 Current Weight (lbs) 101.151 kg Weight (Calculated Kilograms) 101.2 Weight (Calculated Grams) 387055.1 [place] Body Weight 130 Body Mass Index (BMI) 35.9 Weight Status Obese GI Symptoms GI Symptoms None Last BM no record Difficult in: None Skin Integrity/Comment: both leg pitting edema 3+ rash to anterior vagina, left arm, abdomen, hand, anterior chest reddened to right/left leg Current %PO Good (75-100%) Estimated Nutritional Goals BEE in Kcals: Adj wt of IBW Calories/Kcals/Kg 25-30 Kcals Calculated 8023-7065 Protein: Adj wt of IBW Protein g/k-1.1 Protein Calculated 70-77 Fluid: ml 1750-2100ml (1ml/kcal) Nutritional Problem 1. Problem Problem increased nutrition needs ( protein) Etiology increased metabolic demand for healing Signs/Symptoms: biletaeral lower extremity cellulitis Intervention/Recommendation Comments 1. Continue with current diet as ordered. 2. Monitor PO intake, wt, labs and skin integrity 3. F/U as moderate risk in 3-5 days, 08/01-08/03 Expected Outcomes/Goals Expected Outcomes/Goals 1. PO intake to meet at least 75% of nutritional needs. 2. Wt stability, skin to remain intact, labs to approach WNL.
[2017-07-29 19:47] LABS: URINE MICROSCOPIC INDICATED? YES; URINE SOURCE CATH
[2017-07-29 19:49] LABS: URINE BILIRUBIN NEGATIVE (NEGATIVE); URINE BLOOD NEGATIVE (NEGATIVE); URINE GLUCOSE (UA) NEGATIVE (NEGATIVE); URINE KETONE NEGATIVE (NEGATIVE); URINE LEUKOCYTE ESTERASE NEGATIVE (NEGATIVE); URINE NITRATE NEGATIVE (NEGATIVE); URINE PH 7.5 (4.6 - 8.0); URINE PROTEIN NEGATIVE (NEGATIVE); URINE UROBILINOGEN 0.2 E.U./dL (0.2 - 1.0)
[2017-07-29 19:51] LABS: URINE CLARITY CLEAR (CLEAR); URINE COLOR YELLOW
[2017-07-29 20:10] LABS: URINE BACTERIA NONE SEEN /hpf (NONE SEEN); URINE EPITHELIAL CELLS NONE SEEN /lpf (FEW); URINE RBC NONE SEEN /hpf (0-5); URINE WBC NONE SEEN /hpf (0-5)
--- NOTE | 2017-07-30 09:11 | General Progress Note ---
Subjective - Review of Systems Events since last encounter: patient with bilateral lower ext celulitis Objective - Results Result Diagrams: 07/29/17 05:36 07/29/17 05:36 Recent Labs: Laboratory Last Values WBC 9.4 Th/cmm (4.8-10.8) 07/29/17 05:36 RBC 4.47 Mil/cmm (3.80-5.20) 07/29/17 05:36 Hgb 12.5 gm/dL (12-16) 07/29/17 05:36 Hct 38.1 % (41.0-60) L 07/29/17 05:36 MCV 85.3 fl (81-100) 07/29/17 05:36 MCH 28.0 pg (27.0-31.0) 07/29/17 05:36 MCHC Differential 32.9 pg (28.0-36.0) 07/29/17 05:36 RDW 14.4 % (11.5-20.0) 07/29/17 05:36 Plt Count 302 Th/cmm (150-400) 07/29/17 05:36 MPV 8.7 fl 07/29/17 05:36 Neutrophils % 56.2 % (40.0-80.0) 07/29/17 05:36 Lymphocytes % 28.0 % (20.0-50.0) 07/29/17 05:36 Monocytes % 8.3 % (2.0-10.0) 07/29/17 05:36 Eosinophils % 6.7 % (0.0-5.0) H 07/29/17 05:36 Basophils % 0.8 % (0.0-2.0) 07/29/17 05:36 Sodium 135 mEq/L (136-145) L 07/29/17 05:36 Potassium 3.7 mEq/L (3.5-5.1) 07/29/17 05:36 Chloride 104 mEq/L (98-107) 07/29/17 05:36 Carbon Dioxide 26.5 mEq/L (21.0-31.0) 07/29/17 05:36 Anion Gap 8.2 (7.0-16.0) 07/29/17 05:36 BUN 29 mg/dL (7-25) H 07/29/17 05:36 Creatinine 1.0 mg/dL (0.6-1.2) 07/29/17 05:36 Est GFR ( Amer) TNP 07/29/17 05:36 Est GFR (Non-Af Amer) TNP 07/29/17 05:36 BUN/Creatinine Ratio 29.0 07/29/17 05:36 Glucose 101 mg/dL (70-105) 07/29/17 05:36 Whole Bld Lactic Acid 1.60 mmol/L (0.60-1.99) 07/29/17 00:34 Calcium 9.3 mg/dL (8.6-10.3) 07/29/17 05:36 Total Bilirubin 0.3 mg/dL (0.3-1.0) 07/29/17 00:34 AST 13 U/L (13-39) 07/29/17 00:34 ALT 12 U/L (7-52) 07/29/17 00:34 Troponin I 0.02 ng/mL (0.01-0.05) 07/29/17 00:34 B-Natriuretic Peptide 791.0 pg/mL (5.0-100.0) H 07/29/17 00:34 Total Protein 7.5 gm/dL (6.0-8.3) 07/29/17 00:34 Albumin 3.4 gm/dL (3.7-5.3) L 07/29/17 00:34 Globulin 4.1 gm/dL 07/29/17 00:34 Albumin/Globulin Ratio 0.8 (1.0-1.8) L 07/29/17 00:34 Triglycerides 184 mg/dL (<150) H 07/29/17 05:36 Cholesterol 145 mg/dL (<200) 07/29/17 05:36 LDL Cholesterol Direct 88 mg/dL (75-193) 07/29/17 05:36 HDL Cholesterol 41 mg/dL (23-92) 07/29/17 05:36 TSH 2.28 uIU/ml (0.34-5.60) 07/29/17 05:36 Urine Source CATH 07/29/17 19:00 Urine Color YELLOW 07/29/17 19:00 Urine Clarity CLEAR (CLEAR) 07/29/17 19:00 Urine pH 7.5 (4.6 - 8.0) 07/29/17 19:00 Ur Specific [place] 1.020 (1.005-1.030) 07/29/17 19:00 Urine Protein NEGATIVE mg/dL (NEGATIVE) 07/29/17 19:00 Urine Glucose (UA) NEGATIVE mg/dL (NEGATIVE) 07/29/17 19:00 Urine Ketones NEGATIVE mg/dL (NEGATIVE) 07/29/17 19:00 Urine Blood NEGATIVE (NEGATIVE) 07/29/17 19:00 Urine Nitrate NEGATIVE (NEGATIVE) 07/29/17 19:00 Urine Bilirubin NEGATIVE (NEGATIVE) 07/29/17 19:00 Urine Urobilinogen 0.2 E.U./dL (0.2 - 1.0) 07/29/17 19:00 Ur Leukocyte Esterase NEGATIVE (NEGATIVE) 07/29/17 19:00 Urine RBC NONE SEEN /hpf (0-5) 07/29/17 19:00 Urine WBC NONE SEEN /hpf (0-5) 07/29/17 19:00 Ur Epithelial Cells NONE SEEN /lpf (FEW) 07/29/17 19:00 Urine Bacteria NONE SEEN /hpf (NONE SEEN) 07/29/17 19:00 - Physical Exam Vitals and I&O: Vital Signs Temp 97.2 F 07/30/17 04:00 Pulse 68 07/30/17 04:00 Resp 17 07/30/17 04:00 BP 138/75 07/30/17 04:00 Pulse Ox 96 07/30/17 04:00 Intake & Output 07/29/17 07/30/17 07/30/17 18:59 06:59 18:59 Intake Total 500 50 Output Total 100 Balance 400 50 Weight (lbs) 101.151 kg Intake: Intake, IV Amount 50 50 Piperacillin Sodium/ 50 50 Tazobact 3.375 gm In Sodium Chloride 0.9% 50 ml @ 100 mls/hr IV Q8H [facility] Rx#:[id number] Oral 450 Output: Urine 100 Other: # Voids 3 # Bowel Movements 0 Active Medications: Current Medications Furosemide (Lasix) 20 mg IVP DAILY [facility] Stop: 09/28/17 08:59 Piperacillin Sod/Tazobactam (Sod 3.375 gm/ Sodium Chloride) 50 mls @ 100 mls/ hr IV Q8H [facility] Stop: 09/27/17 02:59 Last Admin: 07/30/17 02:39 Dose: 100 mls/hr Vancomycin HCl 1.5 gm/ Sodium (Chloride) 500 mls @ 250 mls/hr IV Q24H [facility] Stop: 09/28/17 08:59 Miscellaneous (Vancomycin Iv Per Pharmacy) 1 ea [facility] DAILY [facility] Stop: 09/27/17 13:39 Nystatin (Nystop) 0 units TP BID [facility] Stop: 09/27/17 18:29 - Procedures Procedures: Procedures Procedure Code Date INSERTION OF INFUSION DEV INTO SUP VENA CAVA, PERC APPROACH [id number] 01/06/17 Nutritional Asmnt/Malnutr-PDOC - Dietary Evaluation Malnutrition Findings (Please click <Entered> for more info): Nutritional Asmnt/Malnutrition Start: 07/29/17 15: 23 Text: Status: Complete Freq: Document 07/29/17 15:23 LCPORSHAG (Rec: 07/29/17 15:29 LCPORSHAG [id number]) Nutritional Asmnt/Malnutrition Patient General Information Nutritional Screening High Risk Consult Diagnosis bilateral lower extremity cellulitis Pertinent Medical Hx/Surgical Hx no H&P, not able to obtain Per ER note, pt had bilateral lower extremity cellulitis a month ago. Subjective Information Consult received for low rodríguez score. Pt seen sitting in bed at time of visit, just finised 100% of lunch. Pt reported good appetite, not picky, likes the food provided . Current Diet Order/ Nutrition Support low sodiuam 2gm Pertinent Medications lasix, piperacillin, vancomycin Pertinent Labs 07/29 na 135, K 3.7, Cl 104, BUN 29, Cr 1.0, glucose 101, Ca 9.3 Nutritional Hx/Data Height 1.68 m Height (Calculated Centimeters) 167.6 Current Weight (lbs) 101.151 kg Weight (Calculated Kilograms) 101.2 Weight (Calculated Grams) 092842.1 [place] Body Weight 130 Body Mass Index (BMI) 35.9 Weight Status Obese GI Symptoms GI Symptoms None Last BM no record Difficult in: None Skin Integrity/Comment: both leg pitting edema 3+ rash to anterior vagina, left arm, abdomen, hand, anterior chest reddened to right/left leg Current %PO Good (75-100%) Estimated Nutritional Goals BEE in Kcals: Adj wt of IBW Calories/Kcals/Kg 25-30 Kcals Calculated 7536-4508 Protein: Adj wt of IBW Protein g/k-1.1 Protein Calculated 70-77 Fluid: ml 1750-2100ml (1ml/kcal) Nutritional Problem 1. Problem Problem increased nutrition needs ( protein) Etiology increased metabolic demand for healing Signs/Symptoms: biletaeral lower extremity cellulitis Intervention/Recommendation Comments 1. Continue with current diet as ordered. 2. Monitor PO intake, wt, labs and skin integrity 3. F/U as moderate risk in 3-5 days, 08/01-08/03 Expected Outcomes/Goals Expected Outcomes/Goals 1. PO intake to meet at least 75% of nutritional needs. 2. Wt stability, skin to remain intact, labs to approach WNL.
--- NOTE | 2017-07-30 09:27 | Diagnostic Imaging Report ---
Bilateral lower extremity Doppler venous ultrasound exam HISTORY: Pain/swelling Sonographic sector images were obtained through the deep venous systems of both legs. Associated Doppler data was obtained. The exam is limited due to marked generalized soft tissue swelling. The exam demonstrates patency of the common femoral, superficial femoral, popliteal, and posterior tibial veins bilaterally. Specifically, no thrombus is seen. There are normal compressibility and augmentation responses. IMPRESSION: 1. Limited exam due to marked soft tissue swelling/edema 2. No definite evidence of deep vein thrombophlebitis
[2017-07-30] MEDS: Vancomycin HCl 1.5 GM in Sodium Chloride 0.9% 500 ML IV SCH (09:51)
[2017-07-30] MEDS: NYSTATIN 100000 UNITS/GM POWD TP SCH ×2 (10:32→17:40)
--- NOTE | 2017-07-30 14:03 | Internal Medicine Prog Note ---
Internal Medicine Subjective - Subjective Service Date: 07/30/17 ([id number] [facility] ) Patient is:: awake Per staff patient has:: no adverse event Internal Medicine Objective - Results Result Diagrams: 07/29/17 05:36 07/29/17 05:36 Recent Labs: Laboratory Last Values WBC 9.4 Th/cmm (4.8-10.8) 07/29/17 05:36 RBC 4.47 Mil/cmm (3.80-5.20) 07/29/17 05:36 Hgb 12.5 gm/dL (12-16) 07/29/17 05:36 Hct 38.1 % (41.0-60) L 07/29/17 05:36 MCV 85.3 fl (81-100) 07/29/17 05:36 MCH 28.0 pg (27.0-31.0) 07/29/17 05:36 MCHC Differential 32.9 pg (28.0-36.0) 07/29/17 05:36 RDW 14.4 % (11.5-20.0) 07/29/17 05:36 Plt Count 302 Th/cmm (150-400) 07/29/17 05:36 MPV 8.7 fl 07/29/17 05:36 Neutrophils % 56.2 % (40.0-80.0) 07/29/17 05:36 Lymphocytes % 28.0 % (20.0-50.0) 07/29/17 05:36 Monocytes % 8.3 % (2.0-10.0) 07/29/17 05:36 Eosinophils % 6.7 % (0.0-5.0) H 07/29/17 05:36 Basophils % 0.8 % (0.0-2.0) 07/29/17 05:36 Sodium 135 mEq/L (136-145) L 07/29/17 05:36 Potassium 3.7 mEq/L (3.5-5.1) 07/29/17 05:36 Chloride 104 mEq/L (98-107) 07/29/17 05:36 Carbon Dioxide 26.5 mEq/L (21.0-31.0) 07/29/17 05:36 Anion Gap 8.2 (7.0-16.0) 07/29/17 05:36 BUN 29 mg/dL (7-25) H 07/29/17 05:36 Creatinine 1.0 mg/dL (0.6-1.2) 07/29/17 05:36 Est GFR ( Amer) TNP 07/29/17 05:36 Est GFR (Non-Af Amer) TNP 07/29/17 05:36 BUN/Creatinine Ratio 29.0 07/29/17 05:36 Glucose 101 mg/dL (70-105) 07/29/17 05:36 Whole Bld Lactic Acid 1.60 mmol/L (0.60-1.99) 07/29/17 00:34 Calcium 9.3 mg/dL (8.6-10.3) 07/29/17 05:36 Total Bilirubin 0.3 mg/dL (0.3-1.0) 07/29/17 00:34 AST 13 U/L (13-39) 07/29/17 00:34 ALT 12 U/L (7-52) 07/29/17 00:34 Troponin I 0.02 ng/mL (0.01-0.05) 07/29/17 00:34 B-Natriuretic Peptide 791.0 pg/mL (5.0-100.0) H 07/29/17 00:34 Total Protein 7.5 gm/dL (6.0-8.3) 07/29/17 00:34 Albumin 3.4 gm/dL (3.7-5.3) L 07/29/17 00:34 Globulin 4.1 gm/dL 07/29/17 00:34 Albumin/Globulin Ratio 0.8 (1.0-1.8) L 07/29/17 00:34 Triglycerides 184 mg/dL (<150) H 07/29/17 05:36 Cholesterol 145 mg/dL (<200) 07/29/17 05:36 LDL Cholesterol Direct 88 mg/dL (75-193) 07/29/17 05:36 HDL Cholesterol 41 mg/dL (23-92) 07/29/17 05:36 TSH 2.28 uIU/ml (0.34-5.60) 07/29/17 05:36 Urine Source CATH 07/29/17 19:00 Urine Color YELLOW 07/29/17 19:00 Urine Clarity CLEAR (CLEAR) 07/29/17 19:00 Urine pH 7.5 (4.6 - 8.0) 07/29/17 19:00 Ur Specific [place] 1.020 (1.005-1.030) 07/29/17 19:00 Urine Protein NEGATIVE mg/dL (NEGATIVE) 07/29/17 19:00 Urine Glucose (UA) NEGATIVE mg/dL (NEGATIVE) 07/29/17 19:00 Urine Ketones NEGATIVE mg/dL (NEGATIVE) 07/29/17 19:00 Urine Blood NEGATIVE (NEGATIVE) 07/29/17 19:00 Urine Nitrate NEGATIVE (NEGATIVE) 07/29/17 19:00 Urine Bilirubin NEGATIVE (NEGATIVE) 07/29/17 19:00 Urine Urobilinogen 0.2 E.U./dL (0.2 - 1.0) 07/29/17 19:00 Ur Leukocyte Esterase NEGATIVE (NEGATIVE) 07/29/17 19:00 Urine RBC NONE SEEN /hpf (0-5) 07/29/17 19:00 Urine WBC NONE SEEN /hpf (0-5) 07/29/17 19:00 Ur Epithelial Cells NONE SEEN /lpf (FEW) 07/29/17 19:00 Urine Bacteria NONE SEEN /hpf (NONE SEEN) 07/29/17 19:00 - Physical Exam Vitals and I&O: Vital Signs Temp 97.2 F 07/30/17 11:56 Pulse 87 07/30/17 11:56 Resp 18 07/30/17 13:36 BP 143/81 07/30/17 11:56 Pulse Ox 96 07/30/17 11:56 Intake & Output 07/29/17 07/30/17 07/30/17 18:59 06:59 18:59 Intake Total 500 100 Output Total 100 Balance 400 100 Weight (lbs) 223 lb Intake: Intake, IV Amount 50 100 Piperacillin Sodium/ 50 100 Tazobact 3.375 gm In Sodium Chloride 0.9% 50 ml @ 100 mls/hr IV Q8H [facility] Rx#:[id number] Oral 450 Output: Urine 100 Other: # Voids 3 # Bowel Movements 0 Active Medications: Current Medications Furosemide (Lasix) 40 mg IVP DAILY [facility] Stop: 09/29/17 08:59 Piperacillin Sod/Tazobactam (Sod 3.375 gm/ Sodium Chloride) 50 mls @ 100 mls/ hr IV Q8H [facility] Stop: 09/27/17 02:59 Last Admin: 07/30/17 12:12 Dose: 100 mls/hr Vancomycin HCl 1.5 gm/ Sodium (Chloride) 500 mls @ 250 mls/hr IV Q24H [facility] Stop: 09/28/17 08:59 Last Admin: 07/30/17 09:51 Dose: 250 mls/hr Miscellaneous (Vancomycin Iv Per Pharmacy) 1 ea MC DAILY [facility] Stop: 09/27/17 13:39 Mupirocin (Bactroban Oint) 1 appl NS BID [facility] Stop: 08/04/17 09:01 Nystatin (Nystop) 0 units TP BID [facility] Stop: 09/27/17 18:29 Last Admin: 07/30/17 10:32 Dose: 100,000 units - Procedures Procedures: Procedures Procedure Code Date INSERTION OF INFUSION DEV INTO SUP VENA CAVA, PERC APPROACH [id number] 01/06/17 Nutritional Asmnt/Malnutr-PDOC - Dietary Evaluation Malnutrition Findings (Please click <Entered> for more info): Nutritional Asmnt/Malnutrition Start: 07/29/17 15: 23 Text: Status: Complete Freq: Document 07/29/17 15:23 LCHENG (Rec: 07/29/17 15:29 LCHENG [email or web address]) Nutritional Asmnt/Malnutrition Patient General Information Nutritional Screening High Risk Consult Diagnosis bilateral lower extremity cellulitis Pertinent Medical Hx/Surgical Hx no H&P, not able to obtain Per ER note, pt had bilateral lower extremity cellulitis a month ago. Subjective Information Consult received for low rodríguez score. Pt seen sitting in bed at time of visit, just finised 100% of lunch. Pt reported good appetite, not picky, likes the food provided . Current Diet Order/ Nutrition Support low sodiuam 2gm Pertinent Medications lasix, piperacillin, vancomycin Pertinent Labs 07/29 na 135, K 3.7, Cl 104, BUN 29, Cr 1.0, glucose 101, Ca 9.3 Nutritional Hx/Data Height 5 ft 6 in Height (Calculated Centimeters) 167.6 Current Weight (lbs) 223 lb Weight (Calculated Kilograms) 101.2 Weight (Calculated Grams) 981943.1 [place] Body Weight 130 Body Mass Index (BMI) 35.9 Weight Status Obese GI Symptoms GI Symptoms None Last BM no record Difficult in: None Skin Integrity/Comment: both leg pitting edema 3+ rash to anterior vagina, left arm, abdomen, hand, anterior chest reddened to right/left leg Current %PO Good (75-100%) Estimated Nutritional Goals BEE in Kcals: Adj wt of IBW Calories/Kcals/Kg 25-30 Kcals Calculated 2773-8748 Protein: Adj wt of IBW Protein g/k-1.1 Protein Calculated 70-77 Fluid: ml 1750-2100ml (1ml/kcal) Nutritional Problem 1. Problem Problem increased nutrition needs ( protein) Etiology increased metabolic demand for healing Signs/Symptoms: biletaeral lower extremity cellulitis Intervention/Recommendation Comments 1. Continue with current diet as ordered. 2. Monitor PO intake, wt, labs and skin integrity 3. F/U as moderate risk in 3-5 days, 08/01-08/03 Expected Outcomes/Goals Expected Outcomes/Goals 1. PO intake to meet at least 75% of nutritional needs. 2. Wt stability, skin to remain intact, labs to approach WNL.
--- NOTE | 2017-07-30 15:29 | History & Physical ---
ADMIT DATE: 07/29/2017 HISTORY OF PRESENT ILLNESS: This is a 72-year-old female patient, came to the Emergency Room with bilateral lower leg extremity swelling for one month. The patient actually was treated about 20 days ago with the vancomycin and Zosyn and also was sent home on for 10 days of antibiotic therapy. Apparently, the patient is having increasing swelling, increasing burning, increasing erythema, difficulty walking, so she came to the ER and was admitted from the Emergency Room. REVIEW OF SYSTEMS: No fever. She has skin lesions. She has no headache, no neck pain, and no chest pain. Complains of some shortness of breath. The patient has bony pains and joint pains and the patient complains of bilateral leg weakness and some bilateral lower leg swelling, erythema, and weeping cellulitis. PAST MEDICAL HISTORY: History of smoking, history of COPD, and history of drug abuse. PHYSICAL EXAMINATION: HEAD: Normal. ENT: Normal. LUNGS: Bilaterally decreased. CARDIOVASCULAR SYSTEM: S1 and S2 heard. ABDOMEN: Soft. EXTREMITIES: Bilateral lower extremity swelling and erythema and seeping cellulitis. DIAGNOSES: Severe diffuse ____ extremity, bilateral leg weakness, lymphedema, skin dermatitis as well as chronic changes, possible systemic inflammatory response syndrome, history of bilateral lower leg weakness and history of chronic obstructive pulmonary disease and history of drug abuse in the past. PLAN: The patient was started on IV antibiotics, Levaquin. We will have ID doctor, Dr. Tahir Bustos see the patient and I will follow the patient. JOB# [id number]
--- NOTE | 2017-07-30 16:33 | History & Physical ---
ADMIT DATE: 07/30/2017 CHIEF COMPLAINT: Bilateral lower extremity swelling. HISTORY OF PRESENT ILLNESS: This is a 72-year-old pleasant female who has a 1-month history of bilateral lower extremity swelling. The patient states that she was recently hospitalized for 10 days due to bilateral lower extremity cellulitis and she was on vancomycin and Zosyn and she continued these medication also at her home by home health nurses for another 10 days, but due to patient's increase of burning and redness and pain where her bilateral lower extremities is, she was brought here to [facility]. PAST MEDICAL HISTORY: Intracranial aneurysm and neuroma. ALLERGIES: No drug allergies. SURGICAL HISTORY: Craniotomy for intracranial aneurysm and right foot surgery due to neuroma. SOCIAL HISTORY: Denies any alcohol. The patient states that she smokes marijuana daily and smokes cigarettes as well. FAMILY HISTORY: Noncontributory. REVIEW OF SYSTEMS: GENERAL: Denies any fevers and chills. CARDIOVASCULAR: Denies chest pain. RESPIRATORY: Denies shortness of breath. GASTROINTESTINAL: Denies nausea, vomiting, abdominal pain. GENITOURINARY: Denies increased frequency or dysuria. NEUROLOGIC: Denies headache, seizures, or syncope. All other systems are reviewed and are negative. PHYSICAL EXAMINATION: GENERAL: The patient is well developed, well nourished, no acute distress. VITAL SIGNS: Temperature 97.2, heart rate 87, blood pressure 143/81, respirations 18, O2 96%. HEENT: Head normocephalic, atraumatic. NECK: Supple. No mass. LUNGS: Clear bilaterally. ABDOMEN: Soft, nontender. LABORATORY DATA: WBC 9.4, H and H 12.5 and 38.1, platelet of 302. Sodium 135, potassium 3.7, chloride 104, BUN 29, creatinine 1.0. BNP of 791. DIAGNOSTICS: The patient has a lower extremity ultrasound done and the impression is limited examination due to soft tissue swelling, no definite evidence of DVT. ASSESSMENT: Bilateral lower extremity cellulitis, hyponatremia, acute renal insufficiency, elevated BNP, history of intracranial aneurysm, history of neuroma. PLAN: The patient to be admitted to the med/surg unit. We will get Infectious Disease, also paraprofessional education assistant on the case. We will get patient's baseline hemoglobin A1c and lipid panels, keep the patient on IV antibiotics of vancomycin and Zosyn. We will continue to follow this patient. [facility]# [id number]
--- NOTE | 2017-07-30 16:37 | Infectious Disease Prog Note ---
Infectious Disease Subjective - Review of Systems Service Date: 07/30/17 Subjective: There is no new change, no fever. Infectious Disease Objective - Results Result Diagrams: 07/29/17 05:36 07/29/17 05:36 Recent Labs: Laboratory Last Values WBC 9.4 Th/cmm (4.8-10.8) 07/29/17 05:36 RBC 4.47 Mil/cmm (3.80-5.20) 07/29/17 05:36 Hgb 12.5 gm/dL (12-16) 07/29/17 05:36 Hct 38.1 % (41.0-60) L 07/29/17 05:36 MCV 85.3 fl (81-100) 07/29/17 05:36 MCH 28.0 pg (27.0-31.0) 07/29/17 05:36 MCHC Differential 32.9 pg (28.0-36.0) 07/29/17 05:36 RDW 14.4 % (11.5-20.0) 07/29/17 05:36 Plt Count 302 Th/cmm (150-400) 07/29/17 05:36 MPV 8.7 fl 07/29/17 05:36 Neutrophils % 56.2 % (40.0-80.0) 07/29/17 05:36 Lymphocytes % 28.0 % (20.0-50.0) 07/29/17 05:36 Monocytes % 8.3 % (2.0-10.0) 07/29/17 05:36 Eosinophils % 6.7 % (0.0-5.0) H 07/29/17 05:36 Basophils % 0.8 % (0.0-2.0) 07/29/17 05:36 Sodium 135 mEq/L (136-145) L 07/29/17 05:36 Potassium 3.7 mEq/L (3.5-5.1) 07/29/17 05:36 Chloride 104 mEq/L (98-107) 07/29/17 05:36 Carbon Dioxide 26.5 mEq/L (21.0-31.0) 07/29/17 05:36 Anion Gap 8.2 (7.0-16.0) 07/29/17 05:36 BUN 29 mg/dL (7-25) H 07/29/17 05:36 Creatinine 1.0 mg/dL (0.6-1.2) 07/29/17 05:36 Est GFR ( Amer) TNP 07/29/17 05:36 Est GFR (Non-Af Amer) TNP 07/29/17 05:36 BUN/Creatinine Ratio 29.0 07/29/17 05:36 Glucose 101 mg/dL (70-105) 07/29/17 05:36 Whole Bld Lactic Acid 1.60 mmol/L (0.60-1.99) 07/29/17 00:34 Calcium 9.3 mg/dL (8.6-10.3) 07/29/17 05:36 Total Bilirubin 0.3 mg/dL (0.3-1.0) 07/29/17 00:34 AST 13 U/L (13-39) 07/29/17 00:34 ALT 12 U/L (7-52) 07/29/17 00:34 Troponin I 0.02 ng/mL (0.01-0.05) 07/29/17 00:34 B-Natriuretic Peptide 791.0 pg/mL (5.0-100.0) H 07/29/17 00:34 Total Protein 7.5 gm/dL (6.0-8.3) 07/29/17 00:34 Albumin 3.4 gm/dL (3.7-5.3) L 07/29/17 00:34 Globulin 4.1 gm/dL 07/29/17 00:34 Albumin/Globulin Ratio 0.8 (1.0-1.8) L 07/29/17 00:34 Triglycerides 184 mg/dL (<150) H 07/29/17 05:36 Cholesterol 145 mg/dL (<200) 07/29/17 05:36 LDL Cholesterol Direct 88 mg/dL (75-193) 07/29/17 05:36 HDL Cholesterol 41 mg/dL (23-92) 07/29/17 05:36 TSH 2.28 uIU/ml (0.34-5.60) 07/29/17 05:36 Urine Source CATH 07/29/17 19:00 Urine Color YELLOW 07/29/17 19:00 Urine Clarity CLEAR (CLEAR) 07/29/17 19:00 Urine pH 7.5 (4.6 - 8.0) 07/29/17 19:00 Ur Specific [place] 1.020 (1.005-1.030) 07/29/17 19:00 Urine Protein NEGATIVE mg/dL (NEGATIVE) 07/29/17 19:00 Urine Glucose (UA) NEGATIVE mg/dL (NEGATIVE) 07/29/17 19:00 Urine Ketones NEGATIVE mg/dL (NEGATIVE) 07/29/17 19:00 Urine Blood NEGATIVE (NEGATIVE) 07/29/17 19:00 Urine Nitrate NEGATIVE (NEGATIVE) 07/29/17 19:00 Urine Bilirubin NEGATIVE (NEGATIVE) 07/29/17 19:00 Urine Urobilinogen 0.2 E.U./dL (0.2 - 1.0) 07/29/17 19:00 Ur Leukocyte Esterase NEGATIVE (NEGATIVE) 07/29/17 19:00 Urine RBC NONE SEEN /hpf (0-5) 07/29/17 19:00 Urine WBC NONE SEEN /hpf (0-5) 07/29/17 19:00 Ur Epithelial Cells NONE SEEN /lpf (FEW) 07/29/17 19:00 Urine Bacteria NONE SEEN /hpf (NONE SEEN) 07/29/17 19:00 - Physical Exam Vitals and I&O: Vital Signs Temp 97.1 F 07/30/17 16:26 Pulse 81 07/30/17 16:26 Resp 18 07/30/17 16:26 BP 126/82 07/30/17 16:26 Pulse Ox 97 07/30/17 16:26 Intake & Output 07/29/17 07/30/17 07/30/17 18:59 06:59 18:59 Intake Total 500 100 Output Total 100 Balance 400 100 Weight (lbs) 101.151 kg Intake: Intake, IV Amount 50 100 Piperacillin Sodium/ 50 100 Tazobact 3.375 gm In Sodium Chloride 0.9% 50 ml @ 100 mls/hr IV Q8H [facility] Rx#:[id number] Oral 450 Output: Urine 100 Other: # Voids 3 # Bowel Movements 0 Active Medications: Current Medications Furosemide (Lasix) 40 mg IVP DAILY [facility] Stop: 09/29/17 08:59 Piperacillin Sod/Tazobactam (Sod 3.375 gm/ Sodium Chloride) 50 mls @ 100 mls/ hr IV Q8H [facility] Stop: 09/27/17 02:59 Last Admin: 03/15/18 12:12 Dose: 100 mls/hr Vancomycin HCl 1.5 gm/ Sodium (Chloride) 500 mls @ 250 mls/hr IV Q24H [facility] Stop: 09/28/17 08:59 Last Admin: 07/30/17 09:51 Dose: 250 mls/hr Miscellaneous (Vancomycin Iv Per Pharmacy) 1 ea [facility] DAILY [facility] Stop: 09/27/17 13:39 Mupirocin (Bactroban Oint) 1 appl NS BID [facility] Stop: 08/04/17 09:01 Nystatin (Nystop) 0 units TP BID [facility] Stop: 09/27/17 18:29 Last Admin: 07/30/17 10:32 Dose: 100,000 units General: no acute distress, well developed, well nourished HEENT: atraumatic, normocephalic Neck: supple, no thyromegaly Cardiovascular: S1S2, regular Lungs: clear to auscultation bilaterally, clear to percussion Abdomen: soft, no tender, no distended, no mass Extremities: no cyanosis, no clubbing, no edema Neurological: awake, alert, oriented Skin: intact - Procedures Procedures: Procedures Procedure Code Date INSERTION OF INFUSION DEV INTO SUP VENA CAVA, PERC APPROACH [id number] 01/06/17 Nutritional Asmnt/Malnutr-PDOC - Dietary Evaluation Malnutrition Findings (Please click <Entered> for more info): Nutritional Asmnt/Malnutrition Start: 07/29/17 15: 23 Text: Status: Complete Freq: Document 07/29/17 15:23 PORSHA (Rec: 07/29/17 15:29 [facility] Nutritional Asmnt/Malnutrition Patient General Information Nutritional Screening High Risk Consult Diagnosis bilateral lower extremity cellulitis Pertinent Medical Hx/Surgical Hx no H&P, not able to obtain Per ER note, pt had bilateral lower extremity cellulitis a month ago. Subjective Information Consult received for low rodríguez score. Pt seen sitting in bed at time of visit, just finised 100% of lunch. Pt reported good appetite, not picky, likes the food provided . Current Diet Order/ Nutrition Support low sodiuam 2gm Pertinent Medications lasix, piperacillin, vancomycin Pertinent Labs 07/29 na 135, K 3.7, Cl 104, BUN 29, Cr 1.0, glucose 101, Ca 9.3 Nutritional Hx/Data Height 1.68 m Height (Calculated Centimeters) 167.6 Current Weight (lbs) 101.151 kg Weight (Calculated Kilograms) 101.2 Weight (Calculated Grams) 432210.1 [place] Body Weight 130 Body Mass Index (BMI) 35.9 Weight Status Obese GI Symptoms GI Symptoms None Last BM no record Difficult in: None Skin Integrity/Comment: both leg pitting edema 3+ rash to anterior vagina, left arm, abdomen, hand, anterior chest reddened to right/left leg Current %PO Good (75-100%) Estimated Nutritional Goals BEE in Kcals: Adj wt of IBW Calories/Kcals/Kg 25-30 Kcals Calculated 3594-1760 Protein: Adj wt of IBW Protein g/k-1.1 Protein Calculated 70-77 Fluid: ml 1750-2100ml (1ml/kcal) Nutritional Problem 1. Problem Problem increased nutrition needs ( protein) Etiology increased metabolic demand for healing Signs/Symptoms: biletaeral lower extremity cellulitis Intervention/Recommendation Comments 1. Continue with current diet as ordered. 2. Monitor PO intake, wt, labs and skin integrity 3. F/U as moderate risk in 3-5 days, 08/01-08/03 Expected Outcomes/Goals Expected Outcomes/Goals 1. PO intake to meet at least 75% of nutritional needs. 2. Wt stability, skin to remain intact, labs to approach WNL.
--- NOTE | 2017-07-30 22:40 | Consultation ---
DATE OF CONSULTATION: 07/29/2017 HISTORY AND PHYSICAL: This is a 72-year-old female patient who apparently has been complaining of swelling in both lower extremities, which gradually deteriorated with some shortness of breath. No history of PND, orthopnea. PAST MEDICAL HISTORY: Bilateral cellulitis with lymphedema, congestive heart failure, diastolic dysfunction, COPD, hyponatremia, CKD stage II, intracranial aneurysm. FAMILY HISTORY: Unremarkable. SOCIAL HISTORY: No history of smoking, alcohol abuse. ALLERGIES: None. PHYSICAL EXAMINATION: VITAL SIGNS: Blood pressure 140/80, pulse 78, respirations 28. HEAD: Normocephalic. No lumps or bumps. EYES: Pupils equal, reactive to light. Fundi showing sclerae white, conjunctivae pink. NECK: Carotid 2+. Normal upstroke. JVD 10 cm above the sternal angle. Thyroid not palpable. Lymph nodes not palpable. CHEST: Shows increased AP diameter. No kyphosis, scoliosis. LUNGS: Bilateral rales. Decreased breath sounds both the bases. HEART: PMI fifth intercostal space with lateral to midclavicular line. S1, S2, S3, S4, soft systolic murmur. ABDOMEN: Soft, hepatojugular reflux. Positive bowel sounds active. NEUROLOGIC: Unremarkable. EXTREMITIES: Peripheral pulses difficult to palpate. The patient has bilateral lymphedema with cellulitis. DIAGNOSIS: Acute respiratory failure, bilateral leg cellulitis, lymphedema, chronic obstructive pulmonary disease, congestive heart failure, diastolic dysfunction, acute hyponatremia, chronic kidney disease stage II, intracranial aneurysm. PLAN: We will start the patient on IV antibiotics and get Lasix. An echocardiogram for left ventricular function. JOB# [id number]
--- NOTE | 2017-07-31 05:04 | Consultation ---
DATE OF CONSULTATION: 07/30/2017 INFECTIOUS DISEASE CONSULTATION REFERRING PHYSICIAN: Jade Mcguire M.D. REASON FOR CONSULTATION: Cellulitis of both lower extremities. HISTORY OF PRESENT ILLNESS: The patient is a 72-year-old female with a past medical history of dementia, brain surgery, CVA, obesity, initially admitted on 06/30/2017 for swelling and redness of both lower extremities as well as abdomen. The patient was diagnosed to have cellulitis of both lower extremities and abdominal wall cellulitis secondary to tinea cruris. The patient was treated with vancomycin and Zosyn. She was discharged home with home health on 07/08/2017 with IV antibiotics including vancomycin. Unfortunately, she developed burning pain and swelling with redness of both lower extremities again. She developed trouble walking and standing on her feet, so she came to the ER for further evaluation and management. On initial evaluation, her temperature was 97.6 degrees Fahrenheit and WBC count was 8900. The patient was diagnosed to have cellulitis of both lower extremities and started on vancomycin and Zosyn. ID consult was called for further antibiotic management. PAST MEDICAL HISTORY: Includes dementia, brain surgery, CVA, obesity. ALLERGIES: NKDA. MEDICATIONS: Per medication reconciliation sheet. Antibiotic ob, she is receiving vancomycin and Zosyn. FAMILY HISTORY: Not contributory. SOCIAL HISTORY: The patient lives alone. Denies any smoking, alcohol or drug use. REVIEW OF SYSTEMS: GENERAL: The patient denies any fever or chills. HEENT: No diplopia, no photophobia, no sore throat. RESPIRATORY: No cough, no shortness of breath. CARDIOVASCULAR: No chest pain or palpitation. GASTROINTESTINAL: No nausea, no vomiting, no diarrhea, no constipation. GENITOURINARY: No dysuria. NEUROLOGIC: The patient had no headache, no dizziness, no focal weakness. SKIN: The patient complains of burning sensation and redness of both lower extremities. PHYSICAL EXAMINATION: VITAL SIGNS: Shows temperature is 97.1 degrees Fahrenheit, pulse 81, respirations 18, blood pressure 126/82. GENERAL: This is comfortable lying in the bed, not in acute distress. Obese. HEENT: Head is normocephalic, atraumatic. Oral cavity moist, pink tongue. Eyes: No pallor, no icterus. PERRLA. EOMI. NECK: Supple, no JVD, no bruit. Trachea in midline. CHEST: Bilateral breath sounds. No crackles or wheezing. HEART: S1, S2 within normal limits. Regular rhythm. No murmur, no gallop. ABDOMEN: Soft, nontender, nondistended. Bowel sounds present. EXTREMITIES: No cyanosis, no clubbing. The patient has swollen lower extremity with very mild trace erythema. NEUROLOGIC: Alert, awake, oriented x 3. LABORATORY DATA: Current lab shows WBC count is 9400, hemoglobin is 12.5, hematocrit is 38.1, platelets are 302,000. Sodium is 135, potassium 3.5, chloride 104, bicarbonate 26, BUN is 29, creatinine 1, glucose 101. Urinalysis clear urine, negative nitrite, negative leukoesterase. Lower extremity ultrasound suggested marked soft tissue swelling and edema. No evidence of DVT. IMPRESSION: 1. Cellulitis of both lower extremities. 2. Lymphedema both lower extremities. 3. Obesity. 4. Chronic obstructive pulmonary disease. RECOMMENDATIONS: We will continue same antibiotic including vancomycin and Zosyn. Recommend to continue vancomycin and Zosyn. JOB# [id number]
[2017-07-31 08:45] LABS: % BASOPHILS 0.6 % (0.0-2.0); % EOSINOPHILS 7.3 % (0.0-5.0); % LYMPHOCYTES 19.1 % (20.0-50.0); % MONOCYTES 6.5 % (2.0-10.0); % NEUTROPHILS 66.5 % (40.0-80.0); BASOPHILE ABSOLUTE 0.1 Th/cumm (0-0.2); EOSINOPHILE ABSOLUTE 0.7 Th/cmm (0.1-0.4); HEMATOCRIT 41.5 % (41.0-60); HEMOGLOBIN 13.4 gm/dL (12-16); LYMPHOCYTE ABSOLUTE 1.7 Th/cmm (1.5-3.0); MEAN CELL VOLUME 85.3 fl (81-100); MEAN CORPUSCULAR HEMOGLOBIN 27.6 pg (27.0-31.0); MEAN CORPUSCULAR HGB CONC 32.4 pg (28.0-36.0); MEAN PLATELET VOLUME 9.1 fl; MONOCYTE ABSOLUTE 0.6 Th/cmm (0.3-1.0); NEUTROPHILE ABSOLUTE 5.9 Th/cmm (1.8-8.0); PLATELET COUNT 280 Th/cmm (150-400); RED BLOOD COUNT 4.87 Mil/cmm (3.80-5.20); RED CELL DISTRIBUTION WIDTH 14.2 % (11.5-20.0)
[2017-07-31] MEDS: NYSTATIN 100000 UNITS/GM POWD TP SCH ×2 (08:57→18:37)
[2017-07-31] MEDS: Vancomycin HCl 1.5 GM in Sodium Chloride 0.9% 500 ML IV SCH (08:58)
[2017-07-31 09:09] LABS: CHOLESTEROL 139 mg/dL (<200); HDL -HIGH DENSITY LIPOPROTEIN 37 mg/dL (23-92); TRIGLYCERIDES 153 mg/dL (<150)
[2017-07-31 09:10] LABS: ANION GAP 9.1 (7.0-16.0); BUN - UREA NITROGEN 22 mg/dL (7-25); CALCIUM SERUM 9.1 mg/dL (8.6-10.3); CHLORIDE 107 mEq/L (98-107); GLUCOSE 98 mg/dL (70-105); POTASSIUM SERUM 4.1 mEq/L (3.5-5.1); SODIUM SERUM 135 mEq/L (136-145)
[2017-07-31] MEDS ORDERED: Albumin 25% 25gm/100mL 25 GM/100 ML BTL IV ONE (10:08)
[2017-07-31] MEDS ORDERED: Probiotic Screen MC PRN (15:41)
[2017-07-31 16:50] LABS: A1C % 6.3 % (4.0-6.0)
[2017-07-31] MEDS ORDERED: Morphine Sulfate 2 mg/mL 1mL Syr IVP PRN (21:53)
[2017-08-01] MEDS: NYSTATIN 100000 UNITS/GM POWD TP SCH ×2 (09:27→18:33)
[2017-08-01] MEDS: Vancomycin HCl 1.5 GM in Sodium Chloride 0.9% 500 ML IV SCH (10:30)
[2017-08-01] MEDS: Morphine Sulfate 4 mg/mL 1mL Syr IVP PRN ×3 (12:26→23:43)
--- NOTE | 2017-08-01 16:13 | Progress Notes ---
DATE: 08/01/2017 SUBJECTIVE: The patient was seen in her room. The patient is asleep, but easily arousable. Otherwise, the patient denies any pain or discomfort. The patient is in no acute distress. OBJECTIVE: VITAL SIGNS: Temperature 97, heart rate 95, respirations 18, blood pressure 137/82, 96% on room air. HEENT: Head is atraumatic and normocephalic. Eyes: Bilateral conjunctivae are clear. Bilateral pupils are equally round and reactive. NECK: Supple. No JVD. CARDIOVASCULAR: S1 and S2, without murmur. PULMONARY: Clear to auscultation. GASTROINTESTINAL: Soft and nontender without guarding. Positive bowel sounds. MUSCULOSKELETAL: No clubbing. No cyanosis noted. ASSESSMENT: 1. Bilateral lower extremity cellulitis. 2. Renal insufficiency. 3. Congestive heart failure. 4. Chronic kidney disease. PLAN: She will continue current antibiotics. We will keep the patient inpatient and we will monitor the patient's electrolytes. We are going to monitor patient for any pain or discomfort. Treatment plans were discussed with the patient's nurse. Treatment plans were discussed with Dr. Mcguire. JOB# [id number]
--- NOTE | 2017-08-02 09:11 | General Progress Note ---
Subjective - Review of Systems Events since last encounter: patient awake alert denies pain or discomfort Objective - Results Result Diagrams: 07/31/17 07:50 07/31/17 07:50 Recent Labs: Laboratory Last Values WBC 9.0 Th/cmm (4.8-10.8) 07/31/17 07:50 RBC 4.87 Mil/cmm (3.80-5.20) 07/31/17 07:50 Hgb 13.4 gm/dL (12-16) 07/31/17 07:50 Hct 41.5 % (41.0-60) 07/31/17 07:50 MCV 85.3 fl (81-100) 07/31/17 07:50 MCH 27.6 pg (27.0-31.0) 07/31/17 07:50 MCHC Differential 32.4 pg (28.0-36.0) 07/31/17 07:50 RDW 14.2 % (11.5-20.0) 07/31/17 07:50 Plt Count 280 Th/cmm (150-400) 07/31/17 07:50 MPV 9.1 fl 07/31/17 07:50 Neutrophils % 66.5 % (40.0-80.0) 07/31/17 07:50 Lymphocytes % 19.1 % (20.0-50.0) L 07/31/17 07:50 Monocytes % 6.5 % (2.0-10.0) 07/31/17 07:50 Eosinophils % 7.3 % (0.0-5.0) H 07/31/17 07:50 Basophils % 0.6 % (0.0-2.0) 07/31/17 07:50 Sodium 135 mEq/L (136-145) L 07/31/17 07:50 Potassium 4.1 mEq/L (3.5-5.1) 07/31/17 07:50 Chloride 107 mEq/L (98-107) 07/31/17 07:50 Carbon Dioxide 23.0 mEq/L (21.0-31.0) 07/31/17 07:50 Anion Gap 9.1 (7.0-16.0) 07/31/17 07:50 BUN 22 mg/dL (7-25) 07/31/17 07:50 Creatinine 1.0 mg/dL (0.6-1.2) 07/31/17 07:50 Est GFR ( Amer) TNP 07/31/17 07:50 Est GFR (Non-Af Amer) TNP 07/31/17 07:50 BUN/Creatinine Ratio 22.0 07/31/17 07:50 Glucose 98 mg/dL (70-105) 07/31/17 07:50 Hemoglobin A1c % 6.3 % (4.0-6.0) H 07/31/17 07:50 Whole Bld Lactic Acid 1.60 mmol/L (0.60-1.99) 07/29/17 00:34 Calcium 9.1 mg/dL (8.6-10.3) 07/31/17 07:50 Total Bilirubin 0.3 mg/dL (0.3-1.0) 07/29/17 00:34 AST 13 U/L (13-39) 07/29/17 00:34 ALT 12 U/L (7-52) 07/29/17 00:34 Troponin I 0.02 ng/mL (0.01-0.05) 07/29/17 00:34 B-Natriuretic Peptide 239.0 pg/mL (5.0-100.0) H 07/31/17 07:50 Total Protein 7.5 gm/dL (6.0-8.3) 07/29/17 00:34 Albumin 3.4 gm/dL (3.7-5.3) L 07/29/17 00:34 Globulin 4.1 gm/dL 07/29/17 00:34 Albumin/Globulin Ratio 0.8 (1.0-1.8) L 07/29/17 00:34 Triglycerides 153 mg/dL (<150) H 07/31/17 07:50 Cholesterol 139 mg/dL (<200) 07/31/17 07:50 LDL Cholesterol Direct 87 mg/dL (75-193) 07/31/17 07:50 HDL Cholesterol 37 mg/dL (23-92) 07/31/17 07:50 TSH 2.28 uIU/ml (0.34-5.60) 07/29/17 05:36 Urine Source CATH 07/29/17 19:00 Urine Color YELLOW 07/29/17 19:00 Urine Clarity CLEAR (CLEAR) 07/29/17 19:00 Urine pH 7.5 (4.6 - 8.0) 07/29/17 19:00 Ur Specific [place] 1.020 (1.005-1.030) 07/29/17 19:00 Urine Protein NEGATIVE mg/dL (NEGATIVE) 07/29/17 19:00 Urine Glucose (UA) NEGATIVE mg/dL (NEGATIVE) 07/29/17 19:00 Urine Ketones NEGATIVE mg/dL (NEGATIVE) 07/29/17 19:00 Urine Blood NEGATIVE (NEGATIVE) 07/29/17 19:00 Urine Nitrate NEGATIVE (NEGATIVE) 07/29/17 19:00 Urine Bilirubin NEGATIVE (NEGATIVE) 07/29/17 19:00 Urine Urobilinogen 0.2 E.U./dL (0.2 - 1.0) 07/29/17 19:00 Ur Leukocyte Esterase NEGATIVE (NEGATIVE) 07/29/17 19:00 Urine RBC NONE SEEN /hpf (0-5) 07/29/17 19:00 Urine WBC NONE SEEN /hpf (0-5) 07/29/17 19:00 Ur Epithelial Cells NONE SEEN /lpf (FEW) 07/29/17 19:00 Urine Bacteria NONE SEEN /hpf (NONE SEEN) 07/29/17 19:00 Vancomycin Trough 11.5 ug/mL (10-20) 07/31/17 07:50 - Physical Exam Vitals and I&O: Vital Signs Temp 7.0 F 08/02/17 07:49 Pulse 90 08/02/17 07:49 Resp 17 08/02/17 07:49 BP 121/78 08/02/17 07:49 Pulse Ox 95 08/02/17 07:49 Intake & Output 08/01/17 08/02/17 08/02/17 18:59 06:59 18:59 Intake Total 50 410 Balance 50 410 Weight (lbs) 97.069 kg 0 g Intake: Intake, IV Amount 50 50 Piperacillin Sodium/ 50 50 Tazobact 3.375 gm In Sodium Chloride 0.9% 50 ml @ 100 mls/hr IV Q8H REPLACED BY [facility] Rx#:[id number] Oral 360 Other: # Voids 2 # Bowel Movements 0 Active Medications: Current Medications Furosemide (Lasix) 40 mg IVP DAILY [facility] Stop: 09/29/17 08:59 Last Admin: 08/01/17 09:21 Dose: 40 mg Piperacillin Sod/Tazobactam (Sod 3.375 gm/ Sodium Chloride) 50 mls @ 100 mls/ hr IV Q8H REPLACED BY [facility] Stop: 09/27/17 02:59 Last Admin: 08/02/17 02:42 Dose: 100 mls/hr Vancomycin HCl 1.5 gm/ Sodium (Chloride) 500 mls @ 250 mls/hr IV Q24H REPLACED BY [facility] Stop: 09/28/17 08:59 Last Admin: 08/01/17 10:30 Dose: 250 mls/hr Lactobacillus Rhamnosus (Culturelle 15b) 1 each PO DAILY REPLACED BY [facility] Stop: 09/30/17 08:59 Miscellaneous (Vancomycin Iv Per Pharmacy) 1 ea MC DAILY REPLACED BY [facility] Stop: 09/27/17 13:39 Miscellaneous (Probiotic Screen) 1 ea [facility] PRN PRN PRN Reason: PROTOCOL Stop: 09/29/17 15:40 Morphine Sulfate (Morphine) 2 mg IVP Q4HR PRN PRN Reason: Pain (Moderate) Stop: 09/29/17 21:52 Last Admin: 08/01/17 23:43 Dose: 2 mg Mupirocin (Bactroban Oint) 1 appl NS BID REPLACED BY [facility] Stop: 08/04/17 09:01 Last Admin: 08/01/17 18:33 Dose: 1 appl Nystatin (Nystop) 0 units TP BID REPLACED BY [facility] Stop: 09/27/17 18:29 Last Admin: 08/01/17 18:33 Dose: 100,000 units - Procedures Procedures: Procedures Procedure Code Date INSERTION OF INFUSION DEV INTO SUP VENA CAVA, PERC APPROACH [id number] 01/06/17 Nutritional Asmnt/Malnutr-PDOC - Dietary Evaluation Malnutrition Findings (Please click <Entered> for more info): Nutritional Asmnt/Malnutrition Start: 07/29/17 15: 23 Text: Status: Complete Freq: Document 07/29/17 15:23 [facility] (Rec: 07/29/17 15:29 ADAIR [email or web address]) Nutritional Asmnt/Malnutrition Patient General Information Nutritional Screening High Risk Consult Diagnosis bilateral lower extremity cellulitis Pertinent Medical Hx/Surgical Hx no H&P, not able to obtain Per ER note, pt had bilateral lower extremity cellulitis a month ago. Subjective Information Consult received for low rodríguez score. Pt seen sitting in bed at time of visit, just finised 100% of lunch. Pt reported good appetite, not picky, likes the food provided . Current Diet Order/ Nutrition Support low sodiuam 2gm Pertinent Medications lasix, piperacillin, vancomycin Pertinent Labs 07/29 na 135, K 3.7, Cl 104, BUN 29, Cr 1.0, glucose 101, Ca 9.3 Nutritional Hx/Data Height 1.68 m Height (Calculated Centimeters) 167.6 Current Weight (lbs) 101.151 kg Weight (Calculated Kilograms) 101.2 Weight (Calculated Grams) 385767.1 [place] Body Weight 130 Body Mass Index (BMI) 35.9 Weight Status Obese GI Symptoms GI Symptoms None Last BM no record Difficult in: None Skin Integrity/Comment: both leg pitting edema 3+ rash to anterior vagina, left arm, abdomen, hand, anterior chest reddened to right/left leg Current %PO Good (75-100%) Estimated Nutritional Goals BEE in Kcals: Adj wt of IBW Calories/Kcals/Kg 25-30 Kcals Calculated 4714-3072 Protein: Adj wt of IBW Protein g/k-1.1 Protein Calculated 70-77 Fluid: ml 1750-2100ml (1ml/kcal) Nutritional Problem 1. Problem Problem increased nutrition needs ( protein) Etiology increased metabolic demand for healing Signs/Symptoms: biletaeral lower extremity cellulitis Intervention/Recommendation Comments 1. Continue with current diet as ordered. 2. Monitor PO intake, wt, labs and skin integrity 3. F/U as moderate risk in 3-5 days, 08/01-08/03 Expected Outcomes/Goals Expected Outcomes/Goals 1. PO intake to meet at least 75% of nutritional needs. 2. Wt stability, skin to remain intact, labs to approach WNL.
[2017-08-02] MEDS: Lactobacillus Rhamnosus GG 15 Billion CFU CAP.SPRINK PO SCH ×2 (09:17→09:27)
[2017-08-02] MEDS: NYSTATIN 100000 UNITS/GM POWD TP SCH ×2 (09:27→16:45)
[2017-08-02] MEDS: Vancomycin HCl 1.5 GM in Sodium Chloride 0.9% 500 ML IV SCH (10:01)
--- NOTE | 2017-08-02 15:49 | Infectious Disease Prog Note ---
Infectious Disease Subjective - Review of Systems Service Date: 08/02/17 Subjective: No new change. no fever. c/o crack i n the skin both feet. Infectious Disease Objective - Results Result Diagrams: 07/31/17 07:50 07/31/17 07:50 Recent Labs: Laboratory Last Values WBC 9.0 Th/cmm (4.8-10.8) 07/31/17 07:50 RBC 4.87 Mil/cmm (3.80-5.20) 07/31/17 07:50 Hgb 13.4 gm/dL (12-16) 07/31/17 07:50 Hct 41.5 % (41.0-60) 07/31/17 07:50 MCV 85.3 fl (81-100) 07/31/17 07:50 MCH 27.6 pg (27.0-31.0) 07/31/17 07:50 MCHC Differential 32.4 pg (28.0-36.0) 07/31/17 07:50 RDW 14.2 % (11.5-20.0) 07/31/17 07:50 Plt Count 280 Th/cmm (150-400) 07/31/17 07:50 MPV 9.1 fl 07/31/17 07:50 Neutrophils % 66.5 % (40.0-80.0) 07/31/17 07:50 Lymphocytes % 19.1 % (20.0-50.0) L 07/31/17 07:50 Monocytes % 6.5 % (2.0-10.0) 07/31/17 07:50 Eosinophils % 7.3 % (0.0-5.0) H 07/31/17 07:50 Basophils % 0.6 % (0.0-2.0) 07/31/17 07:50 Sodium 135 mEq/L (136-145) L 07/31/17 07:50 Potassium 4.1 mEq/L (3.5-5.1) 07/31/17 07:50 Chloride 107 mEq/L (98-107) 07/31/17 07:50 Carbon Dioxide 23.0 mEq/L (21.0-31.0) 07/31/17 07:50 Anion Gap 9.1 (7.0-16.0) 07/31/17 07:50 BUN 22 mg/dL (7-25) 07/31/17 07:50 Creatinine 1.0 mg/dL (0.6-1.2) 07/31/17 07:50 Est GFR ( Amer) TNP 07/31/17 07:50 Est GFR (Non-Af Amer) TNP 07/31/17 07:50 BUN/Creatinine Ratio 22.0 07/31/17 07:50 Glucose 98 mg/dL (70-105) 07/31/17 07:50 Hemoglobin A1c % 6.3 % (4.0-6.0) H 07/31/17 07:50 Whole Bld Lactic Acid 1.60 mmol/L (0.60-1.99) 07/29/17 00:34 Calcium 9.1 mg/dL (8.6-10.3) 07/31/17 07:50 Total Bilirubin 0.3 mg/dL (0.3-1.0) 07/29/17 00:34 AST 13 U/L (13-39) 07/29/17 00:34 ALT 12 U/L (7-52) 07/29/17 00:34 Troponin I 0.02 ng/mL (0.01-0.05) 07/29/17 00:34 B-Natriuretic Peptide 239.0 pg/mL (5.0-100.0) H 07/31/17 07:50 Total Protein 7.5 gm/dL (6.0-8.3) 07/29/17 00:34 Albumin 3.4 gm/dL (3.7-5.3) L 07/29/17 00:34 Globulin 4.1 gm/dL 07/29/17 00:34 Albumin/Globulin Ratio 0.8 (1.0-1.8) L 07/29/17 00:34 Triglycerides 153 mg/dL (<150) H 07/31/17 07:50 Cholesterol 139 mg/dL (<200) 07/31/17 07:50 LDL Cholesterol Direct 87 mg/dL (75-193) 07/31/17 07:50 HDL Cholesterol 37 mg/dL (23-92) 07/31/17 07:50 TSH 2.28 uIU/ml (0.34-5.60) 07/29/17 05:36 Urine Source CATH 07/29/17 19:00 Urine Color YELLOW 07/29/17 19:00 Urine Clarity CLEAR (CLEAR) 07/29/17 19:00 Urine pH 7.5 (4.6 - 8.0) 07/29/17 19:00 Ur Specific [place] 1.020 (1.005-1.030) 07/29/17 19:00 Urine Protein NEGATIVE mg/dL (NEGATIVE) 07/29/17 19:00 Urine Glucose (UA) NEGATIVE mg/dL (NEGATIVE) 07/29/17 19:00 Urine Ketones NEGATIVE mg/dL (NEGATIVE) 07/29/17 19:00 Urine Blood NEGATIVE (NEGATIVE) 07/29/17 19:00 Urine Nitrate NEGATIVE (NEGATIVE) 07/29/17 19:00 Urine Bilirubin NEGATIVE (NEGATIVE) 07/29/17 19:00 Urine Urobilinogen 0.2 E.U./dL (0.2 - 1.0) 07/29/17 19:00 Ur Leukocyte Esterase NEGATIVE (NEGATIVE) 07/29/17 19:00 Urine RBC NONE SEEN /hpf (0-5) 07/29/17 19:00 Urine WBC NONE SEEN /hpf (0-5) 07/29/17 19:00 Ur Epithelial Cells NONE SEEN /lpf (FEW) 07/29/17 19:00 Urine Bacteria NONE SEEN /hpf (NONE SEEN) 07/29/17 19:00 Vancomycin Trough 11.5 ug/mL (10-20) 07/31/17 07:50 - Physical Exam Vitals and I&O: Vital Signs Temp 98.2 F 08/02/17 11:57 Pulse 83 08/02/17 11:57 Resp 18 08/02/17 11:57 BP 127/67 08/02/17 11:57 Pulse Ox 96 08/02/17 11:57 Intake & Output 08/01/17 08/02/17 08/02/17 18:59 06:59 18:59 Intake Total 550 460 Balance 550 460 Weight (lbs) 97.069 kg 0 g Intake: Intake, IV Amount 550 100 Piperacillin Sodium/ 50 100 Tazobact 3.375 gm In Sodium Chloride 0.9% 50 ml @ 100 mls/hr IV Q8H [facility] Rx#:[id number] Vancomycin HCl 1.5 gm In 500 Sodium Chloride 0.9% 500 ml @ 250 mls/hr IV Q24H [facility] Rx#:[id number] Oral 360 Other: # Voids 2 # Bowel Movements 0 Active Medications: Current Medications Furosemide (Lasix) 40 mg IVP DAILY [facility] Stop: 09/29/17 08:59 Last Admin: 08/02/17 09:18 Dose: 40 mg Piperacillin Sod/Tazobactam (Sod 3.375 gm/ Sodium Chloride) 50 mls @ 100 mls/ hr IV Q8H [facility] Stop: 09/27/17 02:59 Last Admin: 08/02/17 11:40 Dose: 100 mls/hr Vancomycin HCl 1.5 gm/ Sodium (Chloride) 500 mls @ 250 mls/hr IV Q24H [facility] Stop: 09/28/17 08:59 Last Admin: 08/02/17 10:01 Dose: 250 mls/hr Lactobacillus Rhamnosus (Culturelle 15b) 1 each PO DAILY [facility] Stop: 09/30/17 08:59 Last Admin: 08/02/17 09:27 Dose: 1 each Miscellaneous (Vancomycin Iv Per Pharmacy) 1 ea DAILY [facility] Stop: 09/27/17 13:39 Miscellaneous (Probiotic Screen) 1 [facility] PRN PRN PRN Reason: PROTOCOL Stop: 09/29/17 15:40 Morphine Sulfate (Morphine) 2 mg IVP Q4HR PRN PRN Reason: Pain (Moderate) Stop: 09/29/17 21:52 Last Admin: 08/01/17 23:43 Dose: 2 mg Mupirocin (Bactroban Oint) 1 appl NS BID [facility] Stop: 08/04/17 09:01 Last Admin: 08/02/17 09:26 Dose: 1 appl Nystatin (Nystop) 0 units TP BID [facility] Stop: 09/27/17 18:29 Last Admin: 08/02/17 09:27 Dose: 100,000 units General: no acute distress, well developed, well nourished HEENT: atraumatic, normocephalic, PERRLA, EOMI Neck: supple, thyromegaly Cardiovascular: S1S2, regular Lungs: clear to auscultation bilaterally, no clear to percussion Abdomen: soft, rebound, no tender, no distended Extremities: edema, other (redness of the legs.), no cyanosis, no clubbing Neurological: awake, alert, oriented Skin: intact - Procedures Procedures: Procedures Procedure Code Date INSERTION OF INFUSION DEV INTO SUP VENA CAVA, PERC APPROACH [id number] 01/06/17 Infectious Disease Assmt/Plan - Assessment Assessment: 1. Cellulitis of both lower extremities. Extensive. 2. Lymphedema both lower extremities. 3. Obesity. 4. Chronic obstructive pulmonary disease. - Plan Plan: continue vancomycin and Zosyn. Check arterial ultrasound. Nutritional Asmnt/Malnutr-PDOC - Dietary Evaluation Malnutrition Findings (Please click <Entered> for more info): Nutritional Asmnt/Malnutrition Start: 07/29/17 15: 23 Text: Status: Complete Freq: Document 07/29/17 15:23 [facility] (Rec: 07/29/17 15:29 HEN [email or web address]) Nutritional Asmnt/Malnutrition Patient General Information Nutritional Screening High Risk Consult Diagnosis bilateral lower extremity cellulitis Pertinent Medical Hx/Surgical Hx no H&P, not able to obtain Per ER note, pt had bilateral lower extremity cellulitis a month ago. Subjective Information Consult received for low rodríguez score. Pt seen sitting in bed at time of visit, just finised 100% of lunch. Pt reported good appetite, not picky, likes the food provided . Current Diet Order/ Nutrition Support low sodiuam 2gm Pertinent Medications lasix, piperacillin, vancomycin Pertinent Labs 07/29 na 135, K 3.7, Cl 104, BUN 29, Cr 1.0, glucose 101, Ca 9.3 Nutritional Hx/Data Height 1.68 m Height (Calculated Centimeters) 167.6 Current Weight (lbs) 101.151 kg Weight (Calculated Kilograms) 101.2 Weight (Calculated Grams) 463760.1 [place] Body Weight 130 Body Mass Index (BMI) 35.9 Weight Status Obese GI Symptoms GI Symptoms None Last BM no record Difficult in: None Skin Integrity/Comment: both leg pitting edema 3+ rash to anterior vagina, left arm, abdomen, hand, anterior chest reddened to right/left leg Current %PO Good (75-100%) Estimated Nutritional Goals BEE in Kcals: Adj wt of IBW Calories/Kcals/Kg 25-30 Kcals Calculated 5484-3642 Protein: Adj wt of IBW Protein g/k-1.1 Protein Calculated 70-77 Fluid: ml 1750-2100ml (1ml/kcal) Nutritional Problem 1. Problem Problem increased nutrition needs ( protein) Etiology increased metabolic demand for healing Signs/Symptoms: biletaeral lower extremity cellulitis Intervention/Recommendation Comments 1. Continue with current diet as ordered. 2. Monitor PO intake, wt, labs and skin integrity 3. F/U as moderate risk in 3-5 days, 08/01-08/03 Expected Outcomes/Goals Expected Outcomes/Goals 1. PO intake to meet at least 75% of nutritional needs. 2. Wt stability, skin to remain intact, labs to approach WNL.
[2017-08-03] MEDS: Morphine Sulfate 4 mg/mL 1mL Syr IVP PRN (02:23)
[2017-08-03 05:35] LABS: % BASOPHILS 0.5 % (0.0-2.0); % EOSINOPHILS 7.6 % (0.0-5.0); % LYMPHOCYTES 27.1 % (20.0-50.0); % MONOCYTES 7.7 % (2.0-10.0); % NEUTROPHILS 57.1 % (40.0-80.0); EOSINOPHILE ABSOLUTE 0.7 Th/cmm (0.1-0.4); HEMATOCRIT 41.8 % (41.0-60); HEMOGLOBIN 13.5 gm/dL (12-16); LYMPHOCYTE ABSOLUTE 2.5 Th/cmm (1.5-3.0); MEAN CELL VOLUME 85.5 fl (81-100); MEAN CORPUSCULAR HEMOGLOBIN 27.7 pg (27.0-31.0); MEAN CORPUSCULAR HGB CONC 32.4 pg (28.0-36.0); MEAN PLATELET VOLUME 8.7 fl; MONOCYTE ABSOLUTE 0.7 Th/cmm (0.3-1.0); NEUTROPHILE ABSOLUTE 5.5 Th/cmm (1.8-8.0); PLATELET COUNT 312 Th/cmm (150-400); RED BLOOD COUNT 4.89 Mil/cmm (3.80-5.20); RED CELL DISTRIBUTION WIDTH 14.2 % (11.5-20.0); WHITE BLOOD COUNT 9.4 Th/cmm (4.8-10.8)
[2017-08-03 05:54] LABS: ANION GAP 9.9 (7.0-16.0); BUN - UREA NITROGEN 34 mg/dL (7-25); CALCIUM SERUM 9.5 mg/dL (8.6-10.3); CHLORIDE 107 mEq/L (98-107); CREATININE - SERUM 1.1 mg/dL (0.6-1.2); GLUCOSE 94 mg/dL (70-105); POTASSIUM SERUM 3.9 mEq/L (3.5-5.1); SODIUM SERUM 138 mEq/L (136-145)
[2017-08-03] MEDS: Vancomycin HCl 1.5 GM in Sodium Chloride 0.9% 500 ML IV SCH (10:11)
[2017-08-03] MEDS: NYSTATIN 100000 UNITS/GM POWD TP SCH (10:11)
[2017-08-03] MEDS: Lactobacillus Rhamnosus GG 15 Billion CFU CAP.SPRINK PO SCH (10:46)
--- NOTE | 2017-08-03 11:38 | General Progress Note ---
Subjective - Review of Systems Events since last encounter: no change Objective - Results Result Diagrams: 08/03/17 05:20 08/03/17 05:20 Recent Labs: Laboratory Last Values WBC 9.4 Th/cmm (4.8-10.8) 08/03/17 05:20 RBC 4.89 Mil/cmm (3.80-5.20) 08/03/17 05:20 Hgb 13.5 gm/dL (12-16) 08/03/17 05:20 Hct 41.8 % (41.0-60) 08/03/17 05:20 MCV 85.5 fl (81-100) 08/03/17 05:20 MCH 27.7 pg (27.0-31.0) 08/03/17 05:20 MCHC Differential 32.4 pg (28.0-36.0) 08/03/17 05:20 RDW 14.2 % (11.5-20.0) 08/03/17 05:20 Plt Count 312 Th/cmm (150-400) 08/03/17 05:20 MPV 8.7 fl 08/03/17 05:20 Neutrophils % 57.1 % (40.0-80.0) 08/03/17 05:20 Lymphocytes % 27.1 % (20.0-50.0) 08/03/17 05:20 Monocytes % 7.7 % (2.0-10.0) 08/03/17 05:20 Eosinophils % 7.6 % (0.0-5.0) H 08/03/17 05:20 Basophils % 0.5 % (0.0-2.0) 08/03/17 05:20 Sodium 138 mEq/L (136-145) 08/03/17 05:20 Potassium 3.9 mEq/L (3.5-5.1) 08/03/17 05:20 Chloride 107 mEq/L (98-107) 08/03/17 05:20 Carbon Dioxide 25.0 mEq/L (21.0-31.0) 08/03/17 05:20 Anion Gap 9.9 (7.0-16.0) 08/03/17 05:20 BUN 34 mg/dL (7-25) H 08/03/17 05:20 Creatinine 1.1 mg/dL (0.6-1.2) 08/03/17 05:20 Est GFR ( Amer) TNP 08/03/17 05:20 Est GFR (Non-Af Amer) TNP 08/03/17 05:20 BUN/Creatinine Ratio 30.9 08/03/17 05:20 Glucose 94 mg/dL (70-105) 08/03/17 05:20 Hemoglobin A1c % 6.3 % (4.0-6.0) H 07/31/17 07:50 Whole Bld Lactic Acid 1.60 mmol/L (0.60-1.99) 07/29/17 00:34 Calcium 9.5 mg/dL (8.6-10.3) 08/03/17 05:20 Total Bilirubin 0.3 mg/dL (0.3-1.0) 07/29/17 00:34 AST 13 U/L (13-39) 07/29/17 00:34 ALT 12 U/L (7-52) 07/29/17 00:34 Troponin I 0.02 ng/mL (0.01-0.05) 07/29/17 00:34 B-Natriuretic Peptide 239.0 pg/mL (5.0-100.0) H 07/31/17 07:50 Total Protein 7.5 gm/dL (6.0-8.3) 07/29/17 00:34 Albumin 3.4 gm/dL (3.7-5.3) L 07/29/17 00:34 Globulin 4.1 gm/dL 07/29/17 00:34 Albumin/Globulin Ratio 0.8 (1.0-1.8) L 07/29/17 00:34 Triglycerides 153 mg/dL (<150) H 07/31/17 07:50 Cholesterol 139 mg/dL (<200) 07/31/17 07:50 LDL Cholesterol Direct 87 mg/dL (75-193) 07/31/17 07:50 HDL Cholesterol 37 mg/dL (23-92) 07/31/17 07:50 TSH 2.28 uIU/ml (0.34-5.60) 07/29/17 05:36 Urine Source CATH 07/29/17 19:00 Urine Color YELLOW 07/29/17 19:00 Urine Clarity CLEAR (CLEAR) 07/29/17 19:00 Urine pH 7.5 (4.6 - 8.0) 07/29/17 19:00 Ur Specific [place] 1.020 (1.005-1.030) 07/29/17 19:00 Urine Protein NEGATIVE mg/dL (NEGATIVE) 07/29/17 19:00 Urine Glucose (UA) NEGATIVE mg/dL (NEGATIVE) 07/29/17 19:00 Urine Ketones NEGATIVE mg/dL (NEGATIVE) 07/29/17 19:00 Urine Blood NEGATIVE (NEGATIVE) 07/29/17 19:00 Urine Nitrate NEGATIVE (NEGATIVE) 07/29/17 19:00 Urine Bilirubin NEGATIVE (NEGATIVE) 07/29/17 19:00 Urine Urobilinogen 0.2 E.U./dL (0.2 - 1.0) 07/29/17 19:00 Ur Leukocyte Esterase NEGATIVE (NEGATIVE) 07/29/17 19:00 Urine RBC NONE SEEN /hpf (0-5) 07/29/17 19:00 Urine WBC NONE SEEN /hpf (0-5) 07/29/17 19:00 Ur Epithelial Cells NONE SEEN /lpf (FEW) 07/29/17 19:00 Urine Bacteria NONE SEEN /hpf (NONE SEEN) 07/29/17 19:00 Vancomycin Trough 11.5 ug/mL (10-20) 07/31/17 07:50 - Physical Exam Vitals and I&O: Vital Signs Temp 96.4 F 08/03/17 07:42 Pulse 51 08/03/17 07:42 Resp 18 08/03/17 08:42 BP 123/84 08/03/17 10:46 Pulse Ox 98 08/03/17 07:42 Intake & Output 08/02/17 08/03/17 08/03/17 18:59 06:59 18:59 Intake Total 550 550 Balance 550 550 Weight (lbs) 93.44 kg Intake: Intake, IV Amount 550 50 Piperacillin Sodium/ 50 50 Tazobact 3.375 gm In Sodium Chloride 0.9% 50 ml @ 100 mls/hr IV Q8H [facility] Rx#:[id number] Vancomycin HCl 1.5 gm In 500 Sodium Chloride 0.9% 500 ml @ 250 mls/hr IV Q24H [facility] Rx#:[id number] Oral 500 Other: # Voids 1 # Bowel Movements 1 Active Medications: Current Medications Furosemide (Lasix) 40 mg IVP DAILY [facility] Stop: 05/15/18 08:59 Last Admin: 08/03/17 10:46 Dose: 40 mg Piperacillin Sod/Tazobactam (Sod 3.375 gm/ Sodium Chloride) 50 mls @ 100 mls/ hr IV Q8H [facility] Stop: 09/27/17 02:59 Last Admin: 08/03/17 02:18 Dose: 100 mls/hr Vancomycin HCl 1.5 gm/ Sodium (Chloride) 500 mls @ 250 mls/hr IV Q24H [facility] Stop: 09/28/17 08:59 Last Admin: 08/03/17 10:11 Dose: 250 mls/hr Lactobacillus Rhamnosus (Culturelle 15b) 1 each PO DAILY [facility] Stop: 09/30/17 08:59 Last Admin: 08/03/17 10:46 Dose: 1 each Miscellaneous (Vancomycin Iv Per Pharmacy) 1 ea MC DAILY [facility] Stop: 09/27/17 13:39 Miscellaneous (Probiotic Screen) 1 [facility]a [facility] PRN PRN PRN Reason: PROTOCOL Stop: 09/29/17 15:40 Morphine Sulfate (Morphine) 2 mg IVP Q4HR PRN PRN Reason: Pain (Moderate) Stop: 09/29/17 21:52 Last Admin: 08/03/17 02:23 Dose: 2 mg Mupirocin (Bactroban Oint) 1 appl NS BID [facility] Stop: 08/04/17 09:01 Last Admin: 08/03/17 10:11 Dose: 1 appl Nystatin (Nystop) 0 units TP BID [facility] Stop: 09/27/17 18:29 Last Admin: 08/03/17 10:11 Dose: 100,000 units - Procedures Procedures: Procedures Procedure Code Date INSERTION OF INFUSION DEV INTO SUP VENA CAVA, PERC APPROACH [id number] 01/06/17 Nutritional Asmnt/Malnutr-PDOC - Dietary Evaluation Malnutrition Findings (Please click <Entered> for more info): Nutritional Asmnt/Malnutrition Start: 07/29/17 15: 23 Text: Status: Complete Freq: Document 07/29/17 15:23 [email or web address] (Rec: 07/29/17 15:29 [email or web address] [id number]) Nutritional Asmnt/Malnutrition Patient General Information Nutritional Screening High Risk Consult Diagnosis bilateral lower extremity cellulitis Pertinent Medical Hx/Surgical Hx no H&P, not able to obtain Per ER note, pt had bilateral lower extremity cellulitis a month ago. Subjective Information Consult received for low rodríguez score. Pt seen sitting in bed at time of visit, just finised 100% of lunch. Pt reported good appetite, not picky, likes the food provided . Current Diet Order/ Nutrition Support low sodiuam 2gm Pertinent Medications lasix, piperacillin, vancomycin Pertinent Labs 07/29 na 135, K 3.7, Cl 104, BUN 29, Cr 1.0, glucose 101, Ca 9.3 Nutritional Hx/Data Height 1.68 m Height (Calculated Centimeters) 167.6 Current Weight (lbs) 101.151 kg Weight (Calculated Kilograms) 101.2 Weight (Calculated Grams) 578611.1 [place] Body Weight 130 Body Mass Index (BMI) 35.9 Weight Status Obese GI Symptoms GI Symptoms None Last BM no record Difficult in: None Skin Integrity/Comment: both leg pitting edema 3+ rash to anterior vagina, left arm, abdomen, hand, anterior chest reddened to right/left leg Current %PO Good (75-100%) Estimated Nutritional Goals BEE in Kcals: Adj wt of IBW Calories/Kcals/Kg 25-30 Kcals Calculated 0061-8100 Protein: Adj wt of IBW Protein g/k-1.1 Protein Calculated 70-77 Fluid: ml 1750-2100ml (1ml/kcal) Nutritional Problem 1. Problem Problem increased nutrition needs ( protein) Etiology increased metabolic demand for healing Signs/Symptoms: biletaeral lower extremity cellulitis Intervention/Recommendation Comments 1. Continue with current diet as ordered. 2. Monitor PO intake, wt, labs and skin integrity 3. F/U as moderate risk in 3-5 days, 08/01-08/03 Expected Outcomes/Goals Expected Outcomes/Goals 1. PO intake to meet at least 75% of nutritional needs. 2. Wt stability, skin to remain intact, labs to approach WNL.
--- NOTE | 2017-08-03 13:53 | Infectious Disease Prog Note ---
Infectious Disease Subjective - Review of Systems Service Date: 08/03/17 Subjective: No new change. no fever. c/o crack i n the skin both feet. Infectious Disease Objective - Results Result Diagrams: 08/03/17 05:20 08/03/17 05:20 Recent Labs: Laboratory Last Values WBC 9.4 Th/cmm (4.8-10.8) 08/03/17 05:20 RBC 4.89 Mil/cmm (3.80-5.20) 08/03/17 05:20 Hgb 13.5 gm/dL (12-16) 08/03/17 05:20 Hct 41.8 % (41.0-60) 08/03/17 05:20 MCV 85.5 fl (81-100) 08/03/17 05:20 MCH 27.7 pg (27.0-31.0) 08/03/17 05:20 MCHC Differential 32.4 pg (28.0-36.0) 08/03/17 05:20 RDW 14.2 % (11.5-20.0) 08/03/17 05:20 Plt Count 312 Th/cmm (150-400) 08/03/17 05:20 MPV 8.7 fl 08/03/17 05:20 Neutrophils % 57.1 % (40.0-80.0) 08/03/17 05:20 Lymphocytes % 27.1 % (20.0-50.0) 08/03/17 05:20 Monocytes % 7.7 % (2.0-10.0) 08/03/17 05:20 Eosinophils % 7.6 % (0.0-5.0) H 08/03/17 05:20 Basophils % 0.5 % (0.0-2.0) 08/03/17 05:20 Sodium 138 mEq/L (136-145) 08/03/17 05:20 Potassium 3.9 mEq/L (3.5-5.1) 08/03/17 05:20 Chloride 107 mEq/L (98-107) 08/03/17 05:20 Carbon Dioxide 25.0 mEq/L (21.0-31.0) 08/03/17 05:20 Anion Gap 9.9 (7.0-16.0) 08/03/17 05:20 BUN 34 mg/dL (7-25) H 08/03/17 05:20 Creatinine 1.1 mg/dL (0.6-1.2) 08/03/17 05:20 Est GFR ( Amer) TNP 08/03/17 05:20 Est GFR (Non-Af Amer) TNP 08/03/17 05:20 BUN/Creatinine Ratio 30.9 08/03/17 05:20 Glucose 94 mg/dL (70-105) 08/03/17 05:20 Hemoglobin A1c % 6.3 % (4.0-6.0) H 07/31/17 07:50 Whole Bld Lactic Acid 1.60 mmol/L (0.60-1.99) 07/29/17 00:34 Calcium 9.5 mg/dL (8.6-10.3) 08/03/17 05:20 Total Bilirubin 0.3 mg/dL (0.3-1.0) 07/29/17 00:34 AST 13 U/L (13-39) 07/29/17 00:34 ALT 12 U/L (7-52) 07/29/17 00:34 Troponin I 0.02 ng/mL (0.01-0.05) 07/29/17 00:34 B-Natriuretic Peptide 239.0 pg/mL (5.0-100.0) H 07/31/17 07:50 Total Protein 7.5 gm/dL (6.0-8.3) 07/29/17 00:34 Albumin 3.4 gm/dL (3.7-5.3) L 07/29/17 00:34 Globulin 4.1 gm/dL 07/29/17 00:34 Albumin/Globulin Ratio 0.8 (1.0-1.8) L 07/29/17 00:34 Triglycerides 153 mg/dL (<150) H 07/31/17 07:50 Cholesterol 139 mg/dL (<200) 07/31/17 07:50 LDL Cholesterol Direct 87 mg/dL (75-193) 07/31/17 07:50 HDL Cholesterol 37 mg/dL (23-92) 07/31/17 07:50 TSH 2.28 uIU/ml (0.34-5.60) 07/29/17 05:36 Urine Source CATH 07/29/17 19:00 Urine Color YELLOW 07/29/17 19:00 Urine Clarity CLEAR (CLEAR) 07/29/17 19:00 Urine pH 7.5 (4.6 - 8.0) 07/29/17 19:00 Ur Specific [place] 1.020 (1.005-1.030) 07/29/17 19:00 Urine Protein NEGATIVE mg/dL (NEGATIVE) 07/29/17 19:00 Urine Glucose (UA) NEGATIVE mg/dL (NEGATIVE) 07/29/17 19:00 Urine Ketones NEGATIVE mg/dL (NEGATIVE) 07/29/17 19:00 Urine Blood NEGATIVE (NEGATIVE) 07/29/17 19:00 Urine Nitrate NEGATIVE (NEGATIVE) 07/29/17 19:00 Urine Bilirubin NEGATIVE (NEGATIVE) 07/29/17 19:00 Urine Urobilinogen 0.2 E.U./dL (0.2 - 1.0) 07/29/17 19:00 Ur Leukocyte Esterase NEGATIVE (NEGATIVE) 07/29/17 19:00 Urine RBC NONE SEEN /hpf (0-5) 07/29/17 19:00 Urine WBC NONE SEEN /hpf (0-5) 07/29/17 19:00 Ur Epithelial Cells NONE SEEN /lpf (FEW) 07/29/17 19:00 Urine Bacteria NONE SEEN /hpf (NONE SEEN) 07/29/17 19:00 Vancomycin Trough 11.5 ug/mL (10-20) 07/31/17 07:50 - Physical Exam Vitals and I&O: Vital Signs Temp 97.1 F 08/03/17 11:46 Pulse 104 08/03/17 11:46 Resp 19 08/03/17 11:46 BP 129/77 08/03/17 11:46 Pulse Ox 99 08/03/17 11:46 Intake & Output 08/02/17 08/03/17 08/03/17 18:59 06:59 18:59 Intake Total 550 550 500 Balance 550 550 500 Weight (lbs) 93.44 kg Intake: Intake, IV Amount 550 50 500 Piperacillin Sodium/ 50 50 Tazobact 3.375 gm In Sodium Chloride 0.9% 50 ml @ 100 mls/hr IV Q8H [facility] Rx#:[id number] Vancomycin HCl 1.5 gm In 500 500 Sodium Chloride 0.9% 500 ml @ 250 mls/hr IV Q24H [facility] Rx#:[id number] Oral 500 Other: # Voids 1 # Bowel Movements 1 Active Medications: Current Medications Furosemide (Lasix) 40 mg IVP DAILY [facility] Stop: 09/29/17 08:59 Last Admin: 08/03/17 10:46 Dose: 40 mg Piperacillin Sod/Tazobactam (Sod 3.375 gm/ Sodium Chloride) 50 mls @ 100 mls/ hr IV Q8H [facility] Stop: 09/27/17 02:59 Last Admin: 08/03/17 13:22 Dose: Not Given Vancomycin HCl 1.5 gm/ Sodium (Chloride) 500 mls @ 250 mls/hr IV Q24H [facility] Stop: 09/28/17 08:59 Last Infusion: 08/03/17 12:11 Dose: Infused Lactobacillus Rhamnosus (Culturelle 15b) 1 each PO DAILY [facility] Stop: 09/30/17 08:59 Last Admin: 08/03/17 10:46 Dose: 1 each Miscellaneous (Vancomycin Iv Per Pharmacy) 1 ea DAILY [facility] Stop: 09/27/17 13:39 Miscellaneous (Probiotic Screen) 1 [facility] PRN PRN PRN Reason: PROTOCOL Stop: 09/29/17 15:40 Morphine Sulfate (Morphine) 2 mg IVP Q4HR PRN PRN Reason: Pain (Moderate) Stop: 09/29/17 21:52 Last Admin: 08/03/17 02:23 Dose: 2 mg Mupirocin (Bactroban Oint) 1 appl NS BID [facility] Stop: 08/04/17 09:01 Last Admin: 08/03/17 10:11 Dose: 1 appl Nystatin (Nystop) 0 units TP BID [facility] Stop: 09/27/17 18:29 Last Admin: 08/03/17 10:11 Dose: 100,000 units General: no acute distress, well developed, well nourished HEENT: atraumatic, normocephalic, PERRLA Neck: supple, no thyromegaly Cardiovascular: S1S2, regular Lungs: clear to auscultation bilaterally, clear to percussion Abdomen: soft, no tender, no distended, no rebound Extremities: other (both legs are swollen and red. ), no cyanosis, no clubbing Neurological: awake, alert, oriented - Procedures Procedures: Procedures Procedure Code Date INSERTION OF INFUSION DEV INTO SUP VENA CAVA, PERC APPROACH [id number] 01/06/17 Infectious Disease Assmt/Plan - Assessment Assessment: 1. Cellulitis of both lower extremities. Extensive. 2. Lymphedema both lower extremities. 3. Obesity. 4. Chronic obstructive pulmonary disease. - Plan Plan: continue vancomycin and Zosyn. Check arterial ultrasound. dc planning if arterial us comes negative. Nutritional Asmnt/Malnutr-PDOC - Dietary Evaluation Malnutrition Findings (Please click <Entered> for more info): Nutritional Asmnt/Malnutrition Start: 07/29/17 15: 23 Text: Status: Complete Freq: Document 07/29/17 15:23 LCHENG (Rec: 07/29/17 15:29 HEN [id number]) Nutritional Asmnt/Malnutrition Patient General Information Nutritional Screening High Risk Consult Diagnosis bilateral lower extremity cellulitis Pertinent Medical Hx/Surgical Hx no H&P, not able to obtain Per ER note, pt had bilateral lower extremity cellulitis a month ago. Subjective Information Consult received for low rodríguez score. Pt seen sitting in bed at time of visit, just finised 100% of lunch. Pt reported good appetite, not picky, likes the food provided . Current Diet Order/ Nutrition Support low sodiuam 2gm Pertinent Medications lasix, piperacillin, vancomycin Pertinent Labs 07/29 na 135, K 3.7, Cl 104, BUN 29, Cr 1.0, glucose 101, Ca 9.3 Nutritional Hx/Data Height 1.68 m Height (Calculated Centimeters) 167.6 Current Weight (lbs) 101.151 kg Weight (Calculated Kilograms) 101.2 Weight (Calculated Grams) 722589.1 Victor Body Weight 130 Body Mass Index (BMI) 35.9 Weight Status Obese GI Symptoms GI Symptoms None Last BM no record Difficult in: None Skin Integrity/Comment: both leg pitting edema 3+ rash to anterior vagina, left arm, abdomen, hand, anterior chest reddened to right/left leg Current %PO Good (75-100%) Estimated Nutritional Goals BEE in Kcals: Adj wt of IBW Calories/Kcals/Kg 25-30 Kcals Calculated [id number] Protein: Adj wt of IBW Protein g/k-1.1 Protein Calculated 70-77 Fluid: ml 1750-2100ml (1ml/kcal) Nutritional Problem 1. Problem Problem increased nutrition needs ( protein) Etiology increased metabolic demand for healing Signs/Symptoms: biletaeral lower extremity cellulitis Intervention/Recommendation Comments 1. Continue with current diet as ordered. 2. Monitor PO intake, wt, labs and skin integrity 3. F/U as moderate risk in 3-5 days, 08/01-08/03 Expected Outcomes/Goals Expected Outcomes/Goals 1. PO intake to meet at least 75% of nutritional needs. 2. Wt stability, skin to remain intact, labs to approach WNL.
--- NOTE | 2017-08-03 16:31 | Diagnostic Imaging Report ---
Bilateral lower extremity Doppler arterial ultrasound exam HISTORY: Pain, peripheral vascular disease Sonographic sector images were obtained through the arterial systems of both legs. Associated Doppler data was obtained. The exam of the right leg demonstrates triphasic waveforms within the common femoral, superficial femoral, popliteal arteries. Abnormal monophasic waveforms are noted in the right anterior tibial, posterior tibial, dorsalis pedis arteries. Increase in velocity noted in the right posterior tibial artery region. The ankle-brachial index is normal (1.2). Sonographic images demonstrate mild to moderate diffuse atherosclerotic changes. No nichol occlusion is seen. The exam of the left leg demonstrates triphasic waveforms within the common femoral and superficial femoral arteries. Monophasic waveforms are noted within the left popliteal, anterior tibial, posterior tibial, and dorsalis pedis arteries. Abnormal increase in velocity noted in the left posterior tibial artery with an abnormal decrease in velocity noted in left dorsalis pedis artery. The ankle-brachial index is normal (1.2). Sonographic images demonstrate moderate to severe diffuse atherosclerotic changes. No discrete occlusion or focal narrowing seen. IMPRESSION: 1. Evidence of relatively moderate diffuse atherosclerotic changes somewhat more pronounced below the knees. No nichol occlusion. If necessary, a CT angiographic study would provide additional assessment. Support
== END 2017-08-03 16:35 | disposition left against medical advice (07) | DRG 291 ==
LOC: ER 23:45 → TELE 07-29 01:45 → MSI 07-29 18:39
PROVIDERS: ADMIT Internal Medicine; ATTEND Internal Medicine
DX: I50.31 Acute diastolic (congestive) heart failure (principal); J96.00 Acute respiratory failure, unspecified whether with hypoxia or hypercapnia; L03.115 Cellulitis of right lower limb; E87.1 Hypo-osmolality and hyponatremia; L03.116 Cellulitis of left lower limb; J44.9 Chronic obstructive pulmonary disease, unspecified; F03.90 Unspecified dementia, unspecified severity, without behavioral disturbance, psychotic disturbance, mood disturbance, and anxiety; F12.929 Cannabis use, unspecified with intoxication, unspecified; F17.210 Nicotine dependence, cigarettes, uncomplicated; I89.0 Lymphedema, not elsewhere classified; E66.9 Obesity, unspecified; N18.2 Chronic kidney disease, stage 2 (mild); F17.200 Nicotine dependence, unspecified, uncomplicated; N28.9 Disorder of kidney and ureter, unspecified; L30.9 Dermatitis, unspecified; Z68.33 Body mass index [BMI] 33.0-33.9, adult; Z23 Encounter for immunization; Z86.73 Personal history of transient ischemic attack (TIA), and cerebral infarction without residual deficits
CPT/HCPCS: 36415-UA; 80048-TC; 80053-TC; 80061-TC; 80202-TC; 81001-TC; 83036-90; 83605; 83880-TC; 84443-TC; 84484-TC; 85025-TC; 87086-90; 93005; 93925-TC; 93970-TC-50; 96375; A4217; J1940; J1956; J2270; J2543; J3370; J7030; J7040; P9046; X3904